=== PATIENT | male | born 1955 | race Caucasian/White ===

== ENCOUNTER → 2016-06-19 | Outpatient (REF) | payer MEDICARE, OTHER ==
[~2016-06-19] MED LIST: AFRI0.052; ASPI325T PO; B-COTAB10 PO; CEFT500T3 PO; COLA100C PO; COUM1TAB17 PO; FERR325T16 PO; FURO40TA2 PO; LEVO150T7 PO; LORA10TA2 PO; NICO14DI20 TD; PRED10TA PO; PROA1AER INH; PROT1TAB2 PO; SAPH1SUB12 SL; SAPH1SUB9 SL; SERT-138 PO; SYNT150T PO; TAMS0.4C2 PO; VITA2000 PO; [UNRECOGNIZED DRUG - CODE] PO
== END ==
LOC: M LAB REF 17:45
PROVIDERS: ATTEND Physician Assistant Medical
DX: J02.9 Acute pharyngitis, unspecified (principal)

== ENCOUNTER → 2016-10-10 | Outpatient (CLI) | payer MEDICARE, OTHER ==
[~2016-10-10] MED LIST changes: -COLA100C PO; +COLA100C3 PO
[2016-10-10 13:11] LABS: INR 1.9
== END ==
LOC: M WUC 09:15
PROVIDERS: ATTEND Dentist
DX: I26.99 Other pulmonary embolism without acute cor pulmonale (principal)

== ENCOUNTER → 2017-07-18 | Outpatient (CLI) | payer MEDICARE, OTHER ==
[2017-07-18 15:52] LABS: PROTHROMBIN TIME 13.3 SECONDS (12.4-14.5)
== END ==
LOC: M LAB 15:15
DX: D18.09 Hemangioma of other sites (principal); M51.34 Other intervertebral disc degeneration, thoracic region; M51.24 Other intervertebral disc displacement, thoracic region; M47.814 Spondylosis without myelopathy or radiculopathy, thoracic region; M79.1 Myalgia; Z79.01 Long term (current) use of anticoagulants
CPT/HCPCS: 85610

== ENCOUNTER → 2017-09-20 | Outpatient (REF) | payer MEDICARE, OTHER ==
[2017-09-20 19:13] LABS: INR 1.02; PROTHROMBIN TIME 13.5 SECONDS (12.4-14.5)
== END ==
LOC: M LAB REF 18:17
DX: D18.09 Hemangioma of other sites (principal); M51.34 Other intervertebral disc degeneration, thoracic region; M51.24 Other intervertebral disc displacement, thoracic region; M47.814 Spondylosis without myelopathy or radiculopathy, thoracic region; M79.1 Myalgia; Z79.01 Long term (current) use of anticoagulants
CPT/HCPCS: 85610

== ENCOUNTER 2017-10-02 06:19 | Emergency (ER) | payer MEDICARE, OTHER ==
[2017-10-02 07:17] LABS: BASO % 0.6 % (0.0-1.0); EOS # 0.2 10^3/uL (0.0-0.50); EOS % 2.9 % (0.0-3.0); HEMATOCRIT 42.9 % (42.0-52.0); HEMOGLOBIN 14.6 g/dl (13.5-17.5); IMMATURE GRANULOCYTE % 0.1 % (0-3.0); MEAN CORPUSCULAR HEMOGLOBIN 30.9 pg (27.0-33.0); MEAN CORPUSCULAR VOLUME 90.9 fl (80.0-96.0); MONO # 0.5 10^3/uL (0.0-0.8); MONO % 6.7 % (0.0-5.0); NEUTROPHILS # 4.2 10^3/uL (1.8-7.7); NEUTROPHILS % 60.7 % (36.0-66.0); PLATELET COUNT, AUTOMATED 146 10^3/uL (150-450); RED BLOOD COUNT 4.72 10^6/uL (4.30-6.10); RED CELL DISTRIBUTION WIDTH 13.7 % (11.5-14.5); WHITE BLOOD COUNT 6.9 10^3/uL (4.0-10.0)
[2017-10-02] MEDS: NS 1,000 ML IV (07:25)
[2017-10-02 07:28] LABS: INR 1.41; PROTHROMBIN TIME 17.6 SECONDS (12.4-14.5)
[2017-10-02 07:38] LABS: ANION GAP 6 MEQ/L (8-16); BLOOD UREA NITROGEN 12 MG/DL (7-18); CARBON DIOXIDE LEVEL 27 MEQ/L (21-32); CHLORIDE LEVEL 111 MEQ/L (98-107); CREATININE FOR GFR 0.81 MG/DL (0.70-1.30); GLOMERULAR FILTRATION RATE > 60.0 (>49); GLUCOSE, FASTING 103 MG/DL (70-100); POTASSIUM SERUM 3.8 MEQ/L (3.5-5.1); SODIUM LEVEL 144 MEQ/L (136-145)
[2017-10-02] MEDS ORDERED: ISOVUE-370 76% 100ML VIAL (Q9967) As Ordered (07:50)
== END 2017-10-02 09:07 | disposition home or self-care (01) ==
LOC: M ED 06:19
DX: R68.84 Jaw pain (principal); G47.30 Sleep apnea, unspecified; E03.9 Hypothyroidism, unspecified; M19.90 Unspecified osteoarthritis, unspecified site; F41.9 Anxiety disorder, unspecified; F33.9 Major depressive disorder, recurrent, unspecified; Z99.89 Dependence on other enabling machines and devices; Z86.711 Personal history of pulmonary embolism; Z79.899 Other long term (current) drug therapy; Z79.890 Hormone replacement therapy; Z79.01 Long term (current) use of anticoagulants; J30.89 Other allergic rhinitis; F17.210 Nicotine dependence, cigarettes, uncomplicated
CPT/HCPCS: Q9967

== ENCOUNTER 2018-03-30 13:17 | Emergency (ER) | payer MEDICARE, OTHER | END 2018-03-30 14:29 | disposition home or self-care (01) | LOC: M ED 13:17 | DX: K08.89 Other specified disorders of teeth and supporting structures (principal); G50.0 Trigeminal neuralgia; Z85.850 Personal history of malignant neoplasm of thyroid; E89.0 Postprocedural hypothyroidism; F41.9 Anxiety disorder, unspecified; F32.9 Major depressive disorder, single episode, unspecified; F17.200 Nicotine dependence, unspecified, uncomplicated; J30.89 Other allergic rhinitis; Z98.84 Bariatric surgery status; Z79.899 Other long term (current) drug therapy; Z79.01 Long term (current) use of anticoagulants | CPT/HCPCS: 99282 ==

== ENCOUNTER 2019-04-11 15:00 | Emergency (ER) | payer OTHER, MEDICARE ==
[~2019-04-11] VITALS: Ht 177.8 cm; Wt 132.0 kg
[~2019-04-11 15:00] MED LIST changes: +AMOX500C PO; +ASPI-1 PO; -ASPI325T PO; -COLA100C3 PO; +COLA100C5 PO; +DULO1CAP6 PO; +GABA-843 PO; +LORA-243 PO; -LORA10TA2 PO; +OXYC1SOL5 PO; +PERC7.5T11 PO; +PRED-351 PO; -PRED10TA PO; -PROA1AER INH; +PROAAER10 INH; +SIME80TA PO
[2019-04-11] MEDS ORDERED: ZALE10CA (15:14)
[2019-04-11] MEDS ORDERED: SIME40TA PO (15:14)
[2019-04-11] MEDS ORDERED: PANT40TA3 PO (15:14)
[2019-04-11] MEDS ORDERED: PRAZ1CAP (15:14)
[2019-04-11] MEDS ORDERED: LITH150C (15:14)
[2019-04-11 17:49] VITALS: BP 141/88
--- NOTE | 2019-04-11 18:04 | REPVR ---
PROCEDURE INFORMATION: Exam: US Duplex Left Lower Extremity Veins, Limited Exam date and time: 04/11/2019 5:41 PM Age: 63 years old Clinical history: Pain; Arm, lower; Left; Additional info: Edema pain TECHNIQUE: Imaging protocol: Real-time Duplex ultrasound of the Left Lower Extremity with 2-D lemus scale, color Doppler flow and spectral waveform analysis with image documentation. Limited exam focused on the left lower extremity veins. COMPARISON: US Duplex, Ext LOWER veins, bilat 09/27/2015 6:04 PM FINDINGS: Left deep veins: Unremarkable. The common femoral, femoral, proximal profunda femoral and popliteal veins are patent without thrombus. Normal Doppler waveforms. Normal compressibility and/or augmentation response. Left superficial veins: Unremarkable. Saphenofemoral junction is patent without thrombus. Soft tissues: Unremarkable. IMPRESSION: No DVT of the left lower extremity veins. Electronically signed by: Caleb Tejeda On 04/11/2019 18:04:08 PM
== END 2019-04-11 19:17 | disposition home or self-care (01) ==
LOC: M ED 15:00
DX: R60.0 Localized edema (principal); E07.9 Disorder of thyroid, unspecified; I25.10 Atherosclerotic heart disease of native coronary artery without angina pectoris; K21.9 Gastro-esophageal reflux disease without esophagitis; Z86.711 Personal history of pulmonary embolism; Z98.84 Bariatric surgery status; Z79.899 Other long term (current) drug therapy; Z79.890 Hormone replacement therapy; J30.89 Other allergic rhinitis; F17.210 Nicotine dependence, cigarettes, uncomplicated

== ENCOUNTER → 2019-04-24 | Outpatient (CLI) | payer MEDICARE, OTHER ==
[~2019-04-24] MED LIST changes: +LITH150C; +PANT40TA3 PO; +PRAZ1CAP; +SIME40TA PO; +ZALE10CA
--- NOTE | 2019-04-24 10:55 | REP ---
MRI LEFT KNEE WITHOUT CONTRAST: HISTORY: Primary osteoarthritis of the left knee. Question meniscal tear. The patient gives a history of injury most recently in March 2019. There is a comparison left knee radiographs from April 16, 2019. TECHNIQUE: Axial, coronal, and sagittal imaging planes utilized. T1, proton density, and T2-weighted scans were obtained with and without fat saturation in the usual fashion. There is some motion artifact. The patient had difficulty remaining motionless. MRI FINDINGS: There is an osteochondral defect consistent with a nondisplaced sub chondral fracture in the medial femoral condyle. There is a large amount of acute edema in the bone marrow of the medial femoral condyle. The defect measures 17 mm from medial to lateral x 5 mm in craniocaudal depth x 19 mm in anteroposterior extent. No defect can be seen in the overlying articular cartilage on T1 or T2-weighted scans. Cortical and medullary bone signal intensity are otherwise normal. There is extra-articular soft tissue edema noted anteromedially. There is a moderate sized joint effusion and there is a complex Lee's cyst in the posteromedial popliteal soft tissues. Medial and lateral patellar retinacular structures are intact. There is no evidence of patellar or quadriceps tendon disruption. Anterior and posterior cruciate ligaments have an intact appearance. There is no evidence of medial or lateral collateral ligament disruption. The lateral meniscus appears intact. However, there is a vertically oriented tear through the posterior horn and posterior body of the medial meniscus nondisplaced. IMPRESSION: 1. Findings consistent with osteochondral nondisplaced fracture with extensive surrounding edema in the medial femoral condyle. 2. Linear vertically oriented tear posterior body posterior horn medial meniscus. 3. Joint effusion and Lee's cyst. Electronically Signed by Ebenezer Sanders MD 04/24/2019 05:50 P
== END ==
LOC: M RAD 07:52
PROVIDERS: ATTEND Orthopaedic Surgery Sports Medicine
DX: M17.0 Bilateral primary osteoarthritis of knee (principal)

== ENCOUNTER → 2019-04-24 | Outpatient (CLI) | payer OTHER, MEDICARE ==
[~2019-04-24] MED LIST changes: +CLAR10TA7 PO; +DICL1GEL3 TOP; +ELIQ2.5T PO; +FLON1SPR; +OCUVTA PO; +PRAZ1CAP PO; +PRED1TABL PO; +SYNT100T PO; +TRAZ-189 PO; +VITA200038 PO; +ZALE10CA PO
--- NOTE | 2019-04-24 12:29 | REP ---
SOFT-TISSUE ULTRASOUND LEFT POSTERIOR CHEST WALL. HISTORY: Palpable lump left posterior mid back. Posterior thorax mass. SONOGRAPHIC FINDINGS: In the left posterior infrascapular region scanning of the mass demonstrates an oval-shaped hypoechoic well encapsulated area which appears to be in the superficial skeletal muscular layer. This measures 11.3 cm in greatest transverse dimension x 9.7 cm craniocaudal x 3.1 cm in greatest thickness. It is essentially isoechoic to subcutaneous fat and may be a soft tissue lipoma. It does not appear to extend between the ribs or deeper than the superficial skeletal muscle layer. IMPRESSION: 11.3 x 9.7 x 3.1 cm intramuscular oval-shaped soft tissue mass in the left posterior chest wall. This is isoechoic to the subcutaneous fat and may be a lipoma. Ultrasound is nonspecific. CT or MRI scanning would provide additional tissue characterization. Indeed, review this patient's prior electronic x-ray jacket demonstrates a 7.7 cm soft tissue lipoma at the interface between the subcutaneous fat and the trapezius muscle in the left posterior chest wall on CT study from February 28, 2016. Electronically Signed by Ebenezer Sanders MD 04/24/2019 05:50 P
== END ==
LOC: M RAD 07:57
PROVIDERS: ATTEND Family Medicine
DX: R22.2 Localized swelling, mass and lump, trunk (principal)

== ENCOUNTER 2019-05-03 00:24 | Inpatient (IN) | payer OTHER, MEDICARE ==
[~2019-05-03] VITALS: Ht 180.3 cm; Wt 109.1 kg
[~2019-05-03 00:24] MED LIST changes: -CLAR10TA7 PO; -DICL1GEL3 TOP; -ELIQ2.5T PO; -FLON1SPR; -OCUVTA PO; -PRAZ1CAP PO; -PRED1TABL PO; -SYNT100T PO; -TRAZ-189 PO; -VITA200038 PO; -ZALE10CA PO
[2019-05-03 00:53] LABS: BASO # 0.1 10^3/uL (0.0-0.2); BASO % 0.8 % (0.0-1.0); EOS # 0.2 10^3/uL (0.0-0.5); EOS % 3.2 % (0.0-3.0); HEMATOCRIT 47.1 % (42.0-52.0); HEMOGLOBIN 15.7 g/dl (13.5-17.5); LYMPH # 2.9 10^3/uL (1.5-5.0); LYMPH % 39.3 % (24.0-44.0); MEAN CORPUSCULAR HEMOGLOBIN 30.7 pg (27.0-33.0); MEAN CORPUSCULAR HGB CONC 33.3 g/dl (32.0-36.5); MONO # 0.5 10^3/uL (0.0-0.8); MONO % 6.3 % (0.0-5.0); NEUTROPHILS # 3.6 10^3/uL (1.5-8.5); NEUTROPHILS % 50.1 % (36.0-66.0); PLATELET COUNT, AUTOMATED 185 10^3/uL (150-450); RED BLOOD COUNT 5.12 10^6/uL (4.30-6.10); WHITE BLOOD COUNT 7.3 10^3/uL (4.0-10.0)
[2019-05-03 01:21] LABS: ACETAMINOPHEN LEVEL 5.7 UG/ML (10.0-30.0); ALBUMIN 4.1 GM/DL (3.2-5.2); ALT/SGPT 26 U/L (12-78); BILIRUBIN,DIRECT < 0.1 MG/DL (0.0-0.2); BILIRUBIN,TOTAL 0.3 MG/DL (0.2-1.0); BLOOD UREA NITROGEN 11 MG/DL (7-18); CALCIUM LEVEL 8.7 MG/DL (8.8-10.2); CARBON DIOXIDE LEVEL 24 MEQ/L (21-32); CHLORIDE LEVEL 114 MEQ/L (98-107); CPK CREATINE PHOSPHOKINASE 111 U/L (39-308); ETHYL ALCOHOL (ETHANOL) 0.119 % (0.000-0.010); GLOMERULAR FILTRATION RATE > 60.0 (>49); GLUCOSE, FASTING 93 MG/DL (70-100); POTASSIUM SERUM 3.7 MEQ/L (3.5-5.1); SALICYLATE LEVEL 3.4 MG/DL (5.0-30.0); SODIUM LEVEL 146 MEQ/L (136-145); TOTAL PROTEIN 7.1 GM/DL (6.4-8.2)
[2019-05-03 01:22] LABS: AMPHETAMINES LEVEL URINE NEGATIVE (NEGATIVE); BARBITURATES URINE NEGATIVE (NEGATIVE); BENZODIAZEPINES URINE NEGATIVE (NEGATIVE); CANNABINOIDS URINE NEGATIVE (NEGATIVE); COCAINE METABOLITE URINE NEGATIVE (NEGATIVE); METHADONE URINE NEGATIVE (NEGATIVE); OPIATES URINE NEGATIVE (NEGATIVE); PHENCYCLIDINE URINE NEGATIVE (NEGATIVE)
[2019-05-03] MEDS ORDERED: CHARCOAL ACTIVATED LIQUID 25 GM/120 ML BTL PO ONE (01:30)
[2019-05-03 02:20] LABS: FREE T4 0.93 NG/DL (0.76-1.46)
[2019-05-03] MEDS: LEVOTHYROXINE 100MCG TABLET (0.1MG) PO SCH (06:00)
[2019-05-03] MEDS: LEVOTHYROXINE 150MCG TABLET (0.15MG) PO SCH (06:00)
[2019-05-03] MEDS ORDERED: PRAZ1CAP PO (06:16)
[2019-05-03] MEDS ORDERED: PRED1TABL PO (06:16)
[2019-05-03] MEDS ORDERED: DICL1GEL3 TOP (06:16)
[2019-05-03] MEDS ORDERED: VITA200038 PO (06:16)
[2019-05-03] MEDS ORDERED: ELIQ2.5T PO (06:16)
[2019-05-03] MEDS ORDERED: FLON1SPR (06:16)
[2019-05-03] MEDS ORDERED: SYNT100T PO (06:16)
[2019-05-03] MEDS ORDERED: SIME80TA PO (06:16)
[2019-05-03] MEDS ORDERED: TRAZ-189 PO (06:16)
[2019-05-03] MEDS ORDERED: ZALE10CA PO (06:16)
[2019-05-03] MEDS ORDERED: OCUVTA PO (06:16)
[2019-05-03] MEDS ORDERED: PANT40TA3 PO (06:16)
[2019-05-03] MEDS ORDERED: CLAR10TA7 PO (06:16)
[2019-05-03] MEDS: LORATADINE 10 MG TAB PO SCH ×2 (09:00→19:15)
[2019-05-03] MEDS: FERROUS GLUCONATE 324 MG TAB PO SCH ×2 (09:00→20:11)
[2019-05-03] MEDS: APIXABAN 2.5 MG TAB (ELIQUIS) PO SCH ×2 (09:00→20:11)
[2019-05-03] MEDS: FOLIC ACID 1 MG TAB PO SCH ×2 (09:00→19:15)
[2019-05-03] MEDS: VITAMIN D 1,000 INTERNATIONAL UNITS TABLET PO SCH ×2 (09:00→19:16)
[2019-05-03] MEDS: FLUTICASONE PROP 0.05% NASAL SPRAY 16 GM (FLONASE) SCH (09:00)
[2019-05-03] MEDS: OCUVITE 1 TAB PO SCH ×2 (09:00→20:11)
[2019-05-03] MEDS: PANTOPRAZOLE 40MG TAB (PROTONIX) PO SCH ×2 (09:00→19:15)
[2019-05-03] MEDS: MULTIVITAMINS/MINERALS THERAP 1 TAB PO SCH ×2 (09:00→19:15)
[2019-05-03] MEDS: FUROSEMIDE 40 MG TAB PO SCH (09:00)
[2019-05-03] MEDS: DOCUSATE SODIUM 100 MG CAP PO SCH ×2 (09:00→20:11)
[2019-05-03] MEDS ORDERED: LORazepam 2 MG TAB PO PRN (10:30)
[2019-05-03] MEDS ORDERED: OLANZapine ORAL DISINTEGRATING TAB 5MG PO PRN (10:30)
[2019-05-03] MEDS ORDERED: MAALOX 30 ML SUSP *UDC PO PRN (10:30)
[2019-05-03] MEDS ORDERED: SIMETHICONE 80 MG CHEW TAB PO PRN (10:30)
[2019-05-03] MEDS ORDERED: IBUPROFEN 400 MG TAB PO PRN (10:30)
[2019-05-03] MEDS: THIAMINE 100 MG TAB PO SCH ×2 (11:00→20:11)
--- NOTE | 2019-05-03 19:05 | HPEPDOC ---
General Date of Admission May 03, 2019 at 10:28 Date of Service: May 03, 2019 Chief Complaint The patient is a 63-year-old male admitted with a reason for visit of Unspecified Depression. Source: Patient History of Present Illness 63year old male with PMH of morbid obesity s/p gastric bypass surgery, PTSD/ Major Depression/ Suicidal attempts int the past , hypertension, PATTY on CPAP, COPD/ Emphysema, Moderate pulmonary hypertension, history of Pulmonary embolism, GERD, thyroid cancer s/p surgery now with hypothyroidism, left knee pain Has NONDISPLACED FRACTURE OF THE MEDIAL FEMORAL CONDYLE WITH SURROUNDING EDEMA, left medial meniscus tear, joint efussion, bakers cyst seen in MRi on 04/24/19. seen by ortho recommended nonoperative approach with pain management was admitted to the [facility] for depression with suicidal attempt with ingestion of pills along with few beers then he called the [place] suicide hotline and EMS brought him to the ED. Patient does not want to talk much, low mood, poor appetite. Most of the data is gathered form EMR and RN report. Nurse says he has not eaten all day , has not taken his meds refused a physical exam. He was laying down in bed in no distress. When a asked him if his knee hurts he siad it was good, when i asked how was his breathing he said he did not have any problem. On questioning further he did acknowledge that he used CPAP at night but that they will not give it to him here. THe nurse present with me during the interview did clarify that he will be getting his CPAP at night. When i asked to do a physical exam he refused said he is fine he does not need one. Home Medications Scheduled Apixaban (Eliquis) 2.5 Mg Tablet, 2.5 MG PO BID, (Reported) Cholecalciferol (Vitamin D3) (Vitamin D3) 2,000 Unit Tablet, 2,000 UNIT PO DAILY, (Reported) Docusate Sodium (Colace) 100 Mg Cap, 200 MG PO BID, (Reported) Duloxetine Hcl (Duloxetine HCl) 60 Mg Capsule.dr, 120 MG PO DAILY for DEPRE SSION, (Reported) Ferrous Gluconate (Ferrous Gluconate) 324 Mg Tab, 324 MG PO BID, (Reported) Fluticasone Propionate (Flonase Allergy Relief) 9.9 Ml [place].susp, 2 SPRAYS NA DAILY, (Reported) Furosemide (Furosemide) 40 Mg Tab, 40 MG PO DAILY, (Reported) Levothyroxine Sodium (Synthroid) 150 Mcg Tab, 150 MCG PO DAILY, (Reported) TAKES WITH 100MCG FOR 250MCG TOTAL Levothyroxine Sodium (Synthroid) 100 Mcg Tablet, 100 MCG PO DAILY, (Reported) TAKES WITH 150MCG FOR 250MCG TOTAL [place] Carbonate (B[place] Carbonate) 300 Mg Capsule, 300 MG PO BID for mood Loratadine (Claritin) 10 Mg Tablet, 10 MG PO DAILY, (Reported) Multivitamins (I-Shabbir Tablet) 1 Each Tablet, 1 TAB PO BID, (Reported) Pantoprazole Sodium (Pantoprazole Sodium) 40 Mg Tablet.dr, 40 MG PO DAILY, (Reported) Prazosin Hcl (Prazosin HCl) 1 Mg Capsule, 1 MG PO QHS, (Reported) Prednisone (Prednisone) 1 Mg Tablet, 1 MG PO QHS, (Reported) Salsalate (Salsalate) 750 Mg Tablet, 750 MG PO BID for PAIN, (Reported) Vitamin B Complex/Folic Acid (B-Complex Tablet) 1 Tab Tab, 1 TAB PO DAILY, (Reported) Zaleplon (Zaleplon) 10 Mg Capsule, 10 MG PO QHS, (Reported) Scheduled PRN Diclofenac Sodium (Diclofenac Sodium) 1% 100GM Gel..gram., 2 GM TOP BID PRN for PAIN, (Reported) Apply to area of pain Oxycodone HCl (Oxycodone Hydrochloride) 5 Mg Capsule, 5 MG PO TIDP PRN for pain, (Reported) Simethicone (Simethicone) 80 Mg Tab.chew, 80 MG PO QID PRN for GAS PAIN, (Reported) Trazodone HCl (Trazodone HCl) 100 Mg Tablet, 200 MG PO QHS PRN for INSOMNIA, (Reported) Allergies Coded Allergies: ENVIROMENTAL (Unverified Allergy, Unknown, 01/26/15) Past Medical History Medical History PTSD/DEPRESSION/SUICIDAL IDEATION - DR LARA EMPHYSEMA PE 09/20 THYROID CA S/P THYROIDECTOMY S/P HYPOTHYROIDISM GERD MOD PLUM HTN REYEZ'S ESOPHAGUS/GERD HTN PATTY ON CPAP COPD NICOTINE DEP H/O MORBID OBESITY s/p gastric bypass in 2008 HEARING LOSS IRON DEF ANEMIA VIT D DEF OSTEOPENIA Surgical History SINUS RECONSTRUCTION 1974 RIGHT EAR SURGERY 1974 TONSILLECTOMY A CHILD HIATAL HERNIA REPAIR TWISTED BOWEL REPAIR GASTRIC BYPASS 2009 THYROIDECTOMY 2007 PENILE IMPLANT 2012 Family History MOTHER: , UNSPECIFIED HEART DISEASE 2 BROTHER(S) , 1 SISTER(S) . 1 SON(S) , 1 DAUGHTER(S) - HEALTHY. FATHER: LUNG CA, BROTHERS: , ONE FROM BRAIN ANEURYSM SISTER: FROM DRUGS. A-FIB/CHADSVASC A-FIB History Current/History of A-Fib/PAF?: No Review of Systems Other systems To every question he answered " I am fine" Physical Examination Other physical findings Patient refused a physical exam. he was seen laying down in his bed in no acute distress. Vital Signs Vital Signs Date Time Temp Pulse Resp B/P (MAP) Pulse Ox O2 Delivery O2 Flow Rate FiO2 05/03/19 10:44 98.9 69 20 130/85 (100) 95 Room Air 05/03/19 02:45 2.0 Laboratory Data Labs 24H Laboratory Tests 2 05/03/19 00:43: Anion Gap 8, Glomerular Filtration Rate > 60.0, Calcium Level 8.7L, Total Bilirubin 0.3, Direct Bilirubin < 0.1, Aspartate Amino Transf (AST/SGOT) 22, Alanine Aminotransferase (ALT/SGPT) 26, Alkaline Phosphatase 94, Total Creatine Kinase 111, Total Protein 7.1, Albumin 4.1, Albumin/Globulin Ratio 1.37, Thyroid Stimulating Hormone (TSH) 10.500H, Free Thyroxine 0.93, Salicylates Level 3.4L, Acetaminophen Level 5.7L, Ethyl Alcohol Level 0.119H 05/03/19 00:44: Immature Granulocyte % (Auto) 0.3, Neutrophils (%) (Auto) 50.1, Lymphocytes (%) (Auto) 39.3, Monocytes (%) (Auto) 6.3H, Eosinophils (%) (Auto) 3.2H, Basophils (%) (Auto) 0.8, Neutrophils # (Auto) 3.6, Lymphocytes # (Auto) 2.9, Monocytes # (Auto) 0.5, Eosinophils # (Auto) 0.2, Basophils # (Auto) 0.1, Nucleated Red Blood Cells % (auto) 0.0, Urine Opiates Screen NEGATIVE, Urine Methadone Screen NEGATIVE, Urine Barbiturates Screen NEGATIVE, Urine Phencyclidine Screen NEGATIVE, Urine Amphetamines Screen NEGATIVE, Urine Benzodiazepines Screen NEGATIVE, Urine Cocaine Metabolite Screen NEGATIVE, Urine Cannabinoids Screen NEGATIVE 05/03/19 00:55: Bedside Glucose (Misc Panel) 93 05/03/19 04:35: Acetaminophen Level 3.1L CBC/BMP Laboratory Tests 05/03/19 00:43 05/03/19 00:44 Assessment/Plan 63year old male with PMH of morbid obesity s/p gastric bypass surgery, PTSD/ Major Depression/ Suicidal attempts int the past , hypertension, PATTY on CPAP, COPD/ Emphysema, Moderate pulmonary hypertension, history of Pulmonary embolism, GERD, thyroid cancer s/p surgery now with hypothyroidism, iron def anemia, left knee pain Has NONDISPLACED FRACTURE OF THE MEDIAL FEMORAL CONDYLE WITH SURROUNDING EDEMA, left medial meniscus tear, joint effusion, bakers cyst seen in MRi on 04/24/19. seen by ortho recommended nonoperative approach with pain management was admitted to the [facility] for depression with suicidal attempt with ingestion of pills Depression with suicidal attempt as per psychiatry PATTY continue home CPAP at night. History of PE continue eliquis Hypetension BP low normal to low here, patient not eating. will hold lasix for 2 days. Hypothyroidism continue synthroid Iron def anemia continue supplements Left knee meniscal tear and undisplaced fracture of femoral condyle pain control with tylenol and ibuprofen. Gastric bypass surgery status continue with vitamin and mineral supplements GERD continue pantoprazole. Plan / VTE VTE Prophylaxis Ordered?: No (freely ambulatory) FAYE CALLE MD May 03, 2019 16:45
[2019-05-03] MEDS ORDERED: LEVOTHYROXINE 100MCG TABLET (0.1MG) PO ONE (19:30)
[2019-05-03] MEDS ORDERED: LEVOTHYROXINE 150MCG TABLET (0.15MG) PO ONE (19:30)
[2019-05-03] MEDS ORDERED: NICOTINE 21MG/24HR 1 EA TRANSDERMAL TD ONE (20:00)
[2019-05-03] MEDS: traZODone 100 MG TAB PO PRN (20:11)
[2019-05-03] MEDS: PRAZOSIN 1 MG CAP PO SCH (20:12)
[2019-05-03] MEDS: predniSONE 1 MG TAB PO SCH (20:12)
[2019-05-03 20:38] VITALS: BP 126/84
[2019-05-03] MEDS ORDERED: FLUTICASONE PROP 0.05% NASAL SPRAY 16 GM (FLONASE) NARES ONE (21:15)
[2019-05-04] MEDS ORDERED: UNRESOLVED CLARIFICATION ENTRY XX SCH (00:01)
[2019-05-04] MEDS: LEVOTHYROXINE 100MCG TABLET (0.1MG) PO SCH (06:08)
[2019-05-04] MEDS: LEVOTHYROXINE 150MCG TABLET (0.15MG) PO SCH (06:08)
[2019-05-04 06:19] VITALS: BP 142/90
[2019-05-04] MEDS: FLUTICASONE PROP 0.05% NASAL SPRAY 16 GM (FLONASE) SCH (09:00)
[2019-05-04 09:22] VITALS: BP 142/90
[2019-05-04] MEDS: THIAMINE 100 MG TAB PO SCH ×2 (09:44→20:41)
[2019-05-04] MEDS: MULTIVITAMINS/MINERALS THERAP 1 TAB PO SCH (09:45)
[2019-05-04] MEDS: LORATADINE 10 MG TAB PO SCH (09:45)
[2019-05-04] MEDS: FOLIC ACID 1 MG TAB PO SCH (09:45)
[2019-05-04] MEDS: DOCUSATE SODIUM 100 MG CAP PO SCH ×2 (09:45→20:40)
[2019-05-04] MEDS: APIXABAN 2.5 MG TAB (ELIQUIS) PO SCH ×2 (09:45→20:40)
[2019-05-04] MEDS: OCUVITE 1 TAB PO SCH ×2 (09:45→20:40)
[2019-05-04] MEDS ORDERED: NICOTINE 21MG/24HR 1 EA TRANSDERMAL TD SCH (09:45)
[2019-05-04] MEDS: PANTOPRAZOLE 40MG TAB (PROTONIX) PO SCH (09:45)
[2019-05-04] MEDS: FERROUS GLUCONATE 324 MG TAB PO SCH ×2 (09:45→20:40)
[2019-05-04] MEDS: VITAMIN D 1,000 INTERNATIONAL UNITS TABLET PO SCH (09:45)
[2019-05-04] MEDS: NICOTINE 21MG/24HR 1 EA TRANSDERMAL TD SCH (09:46)
[2019-05-04] MEDS: LITHIUM CARBONATE 300 MG CAP PO SCH ×2 (09:56→20:40)
--- NOTE | 2019-05-04 11:52 | MHHPE ---
DATE OF ADMISSION: 05/03/2019 CURRENT MEDICATION: - lithium carbonate 150 mg twice a day ? CHIEF COMPLAINT: Overdose of pills and beer. HISTORY OF PRESENT ILLNESS: This 63-year-old white male, for 46 years, , patient has been stockpiling pills and he took an overdose one week ago, which was not treated. He took another prior to admission, consuming Percocet and beer. The patient feels helpless and hopeless. He struggles with chronic suicidal thoughts for 30 plus years. The patient has chronic sleep difficulty, partly from his posttraumatic stress disorder (PTSD) and partly from his sleep apnea. The patient has a history of nightmares with his posttraumatic stress disorder (PTSD). His energy level is low. His concentration is fine. He does have a history of lazara. He does have a history of manic episodes where he would spend too much money and get into financial difficulty. He does report racing thoughts, he cannot turn his mind off. The patient takes prazosin for his PTSD with some benefit. The patient also admits to abusing caffeine, he has done this for decades. He drinks at least six cups of coffee per day. He does not consume faisal or energy drinks. The patient does not report any recent precipitating stressors. The patient does binge drink alcohol on weekends, according to the . He just drinks beer and not hard liquor. He admits to getting blackouts when he consumes whiskey so he avoids the whiskey now. The patient has a long psychiatric history treated at the [facility]. He has been on multiple medications over the decades, which he cannot recall. He is currently using Dr. French for the past 4 months here in [place]. The patient states that he is on lithium 150 mg twice a day from Dr. French. He claims to be tolerating it well. He has been on lithium in the past as well through the [facility] without any adverse side effects. He claims to be on other psychotropics from Dr. French but cannot recall the details. He will have his bring in the medication. PAST PSYCHIATRIC HISTORY: Please see above. He has a long psychiatric history. He was hospitalized for 6 months in [place] back in 1989. He has been hospitalized twice at the [facility]. He was hospitalized here at [facility] inpatient mental health unit many years ago. He reports having a history of panic and anxiety disorder in the past with severe agoraphobia. He will get housebound. He would get diarrhea if he left the house. This eventually resolved. No history of obsessive compulsive disorder (OCD). He does report some social phobic symptoms. He is not a good historian. MEDICAL HISTORY: Morbid obesity, status post gastric bypass, hypertension, sleep apnea, chronic obstructive pulmonary disease (COPD), gastroesophageal reflux disease (GERD), status post thyroid cancer, fracture of femur. ALLERGIES: The patient denies. LEGAL HISTORY: None noted. CHEMICAL DEPENDENCY: The patient binge drinks alcohol on weekends, according to . SOCIAL HISTORY: THe patient was born and raised in [place]. He joined the [employer] out of high school and was in [place]. He got out of the [employer] after 17 years. His is a nurse and they moved to [place], [place] back in 1989. The patient has not worked since. The patient has a 41-year-old son and a 44-year-old daughter. He has a number of grandchildren. FAMILY PSYCHIATRIC HISTORY: The patient states that his son has been diagnosed with paranoid schizophrenia. He claims his daughter is a hypochondriac. MENTAL STATUS EXAMINATION: The patient is alert, oriented, cooperative. Yesterday he was very irritable, according to staff but is cooperative here today. The patient reports primarily depressive symptoms, but does report racing thoughts, especially at night. The patient reports chronic suicidal thoughts. No signs of psychosis. He is not hearing voices. No paranoia or thought disorder. Grooming and hygiene are fair. The patient walks with a cane. Insight and judgment are fair. No signs of organicity. Cognitive functions appear intact. ASSESSMENT: The patient has a long psychiatric history. He is not a good historian, so we will need access records from the psychiatrist in the [facility], as well as from his . Length of stay is 5 to 7 days. DIAGNOSES: 1. Bipolar disorder, depressed versus bipolar disorder, mixed. 2. Posttraumatic stress disorder (PTSD). 3. Panic/anxiety disorder with agoraphobia. 4. Alcohol use disorder. 5. Nicotine use disorder. PLAN: Confirm 39. Obtain old records. Restart lithium and obtain lithium level. Start nicotine replacement patch.
[2019-05-04] MEDS: CEPACOL LOZENGE PO PRN ×3 (12:01→20:40)
[2019-05-04 16:08] VITALS: BP 140/81
[2019-05-04 19:15] VITALS: BP 141/88
[2019-05-04] MEDS: PRAZOSIN 1 MG CAP PO SCH (20:40)
[2019-05-04] MEDS: predniSONE 1 MG TAB PO SCH (20:41)
[2019-05-04] MEDS ORDERED: FLUTICASONE PROP 0.05% NASAL SPRAY 16 GM (FLONASE) SCH (21:00)
[2019-05-05] MEDS: LEVOTHYROXINE 150MCG TABLET (0.15MG) PO SCH (05:41)
[2019-05-05] MEDS: LEVOTHYROXINE 100MCG TABLET (0.1MG) PO SCH (05:42)
[2019-05-05] MEDS: THIAMINE 100 MG TAB PO SCH ×2 (08:49→20:08)
[2019-05-05] MEDS: LITHIUM CARBONATE 300 MG CAP PO SCH ×2 (08:49→20:08)
[2019-05-05] MEDS: DOCUSATE SODIUM 100 MG CAP PO SCH ×2 (08:49→20:08)
[2019-05-05] MEDS: VITAMIN D 1,000 INTERNATIONAL UNITS TABLET PO SCH (08:49)
[2019-05-05] MEDS: LORATADINE 10 MG TAB PO SCH (08:49)
[2019-05-05] MEDS: APIXABAN 2.5 MG TAB (ELIQUIS) PO SCH ×2 (08:49→20:05)
[2019-05-05] MEDS: OCUVITE 1 TAB PO SCH ×2 (08:49→20:06)
[2019-05-05] MEDS: FOLIC ACID 1 MG TAB PO SCH (08:49)
[2019-05-05] MEDS: MULTIVITAMINS/MINERALS THERAP 1 TAB PO SCH (08:50)
[2019-05-05] MEDS: NICOTINE 21MG/24HR 1 EA TRANSDERMAL TD SCH (08:50)
[2019-05-05] MEDS: FERROUS GLUCONATE 324 MG TAB PO SCH ×2 (08:50→20:05)
[2019-05-05] MEDS: PANTOPRAZOLE 40MG TAB (PROTONIX) PO SCH (08:50)
[2019-05-05] MEDS: FUROSEMIDE 40 MG TAB PO SCH (09:40)
--- NOTE | 2019-05-05 11:11 | MHIPN ---
DATE: 05/05/2019 Temperature 97.9, pulse 76, respirations 20, blood pressure 140/81. CURRENT MEDICATION: - lithium carbonate 300 mg twice a day - prazosin 1 g at bedtime - trazodone 200 mg at bedtime HISTORY OF PRESENT ILLNESS: Reports his never brought in the bottles of medication yesterday. Unfortunately, patient has been isolating on the unit. He is not attending groups. He is acting in oppositional defiant fashion toward staff. His appetite is good, but he is not sleeping well at night. He is afraid he might roll off the bed, so he was sleeping on the floor. He only slept for two or three hours last night. Otherwise, he is pacing a lot. He is not a good historian regarding his past psychiatric care or his medications. His will bring in the bottles later today, hopefully. He is tolerating the lithium well. On lasix so dose will be kept low. MENTAL STATUS EXAMINATION: Patient is alert, oriented and somewhat irritable. Patient reports mild depression. He denies current suicidal thoughts, but admits suicidality comes and goes and is easily prompted or provoked. He denies hearing voices. No current manic symptoms. Insight and judgment are fair. Cognitive functions appear intact. DIAGNOSES: 1. Bipolar disorder, depressed. 2. Posttraumatic stress disorder (PTSD). 3. Panic anxiety disorder. 4. Alcohol use disorder. 5. Nicotine use disorder. PLAN; Obtain lithium level tomorrow morning. Patient's to bring in his psychotropic medication this afternoon, which will be reviewed by his nurse and myself. Encourage involvement in hospital milieu. ALEXANDER
[2019-05-05] MEDS ORDERED: DULO1CAP6 PO (14:18)
[2019-05-05] MEDS ORDERED: SALS750T10 PO (14:23)
[2019-05-05] MEDS ORDERED: OXYC1CAP PO (14:23)
--- NOTE | 2019-05-05 14:46 | ECGEPIP ---
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
[2019-05-05] MEDS: DULoxetine 30 MG CAP (CYMBALTA) PO SCH (14:53)
[2019-05-05] MEDS ORDERED: SODIUM CHLORIDE NASAL 0.65% SPRAY BTL (OCEAN) PRN (15:45)
--- NOTE | 2019-05-05 16:08 | IPNPDOC ---
Subjective Date Seen The patient was seen on 05/05/19. Subjective Chief Complaint/HPI Patient choked on a piece of hamburger last night and had a severe coughing fit and was ultimately able to bring it up. He says that there must have been a piece of meat lodged between his teeth which got dislodged when he was sleeping and as he is a mouth breather it went into his airway. However now he is seeing lots of black dots and lines floating around in his visual field. He also complains of his sinuses bothering him a lot at night . It gets blocked up and then he cannot breathe he feels his throat also closing up when his nose gets blocked. Denies any further ongoing coughing or any SOB. Objective Physical Examination General Exam: Positive: Alert, Cooperative, No Acute Distress Eye Exam: Positive: PERRLA, Conjunctiva & lids normal, EOMI; Negative: Sclera icteric ENT Exam: Positive: Mucous membr. moist/pink, Nares Patent Chest Exam: Positive: Clear to auscultation, Normal air movement Heart Exam: Positive: Regular Rhythm, Normal S1, Normal S2 Extremity Exam: Positive: Edema (trace edema); Negative: Clubbing, Cyanosis Neuro Exam: Positive: Normal Gait, Normal Speech Psych Exam: Positive: Memory Intact, Oriented x 3 Assessment /Plan Assessment 63year old male with PMH of morbid obesity s/p gastric bypass surgery, PTSD/ Major Depression/ Suicidal attempts int the past , hypertension, PATTY on CPAP, COPD/ Emphysema, Moderate pulmonary hypertension, history of Pulmonary embolism, GERD, thyroid cancer s/p surgery now with hypothyroidism, iron def anemia, left knee pain Has NONDISPLACED FRACTURE OF THE MEDIAL FEMORAL CONDYLE WITH SURROUNDING EDEMA, left medial meniscus tear, joint effusion, bakers cyst seen in MRi on 04/24/19. seen by ortho recommended nonoperative approach with pain management was admitted to the [facility] for depression with suicidal attempt with ingestion of pills. Early this am he aspirated on a piece of meat which he was able to cough out. But after that he started seeing floaters in his visual field. His vision is not good as he says he has cataracts. He also complains of the sinuses bothering him at night. Aspiration on a piece of meat seems to have resolved. If patient starts coughing again or complains of SOB will get a CXR. Floaters in the visual field if continues to be a problem will need a ophthal consult or referral Sinus congestion will change the nasal spray to Afrin will also have saline nasal drops available prn. Depression with suicidal attempt as per psychiatry patient is on lithium, prazocin and trazodone PATTY continue home CPAP at night. History of PE continue eliquis Hypertension controlled. continue lasix. Hypothyroidism continue synthroid Iron def anemia continue supplements Left knee meniscal tear and undisplaced fracture of femoral condyle pain control with tylenol and ibuprofen. Gastric bypass surgery status continue with vitamin and mineral supplements GERD continue pantoprazole. Plan/VTE VTE Prophylaxis Ordered?: No (Freely ambulatory) VS, I&O, 24H, Fishbone Vital Signs/I&O Vital Signs Date Time Temp Pulse Resp B/P (MAP) Pulse Ox O2 Delivery O2 Flow Rate FiO2 05/04/19 20:40 131/71 05/04/19 19:15 85 05/04/19 16:08 97.9 20 05/03/19 10:44 95 Room Air 05/03/19 02:45 2.0 FAYE CALLE MD May 05, 2019 16:08
[2019-05-05 16:29] VITALS: BP 146/90
[2019-05-05] MEDS: OXYMETAZOLINE NASAL SPRAY (AFRIN) SCH (20:05)
[2019-05-05] MEDS: predniSONE 1 MG TAB PO SCH (20:06)
[2019-05-05 20:08] VITALS: BP 146/90
[2019-05-05] MEDS: traZODone 100 MG TAB PO PRN (20:08)
[2019-05-05] MEDS: PRAZOSIN 1 MG CAP PO SCH (20:08)
[2019-05-05] MEDS ORDERED: ZALEPLON 10 MG PO SCH (21:00)
[2019-05-06 05:50] VITALS: BP 128/73
[2019-05-06] MEDS: LEVOTHYROXINE 100MCG TABLET (0.1MG) PO SCH (06:16)
[2019-05-06] MEDS: LEVOTHYROXINE 150MCG TABLET (0.15MG) PO SCH (06:17)
[2019-05-06] MEDS: OXYMETAZOLINE NASAL SPRAY (AFRIN) SCH ×2 (09:00→09:12)
[2019-05-06] MEDS: VITAMIN D 1,000 INTERNATIONAL UNITS TABLET PO SCH (09:11)
[2019-05-06] MEDS: LORATADINE 10 MG TAB PO SCH (09:11)
[2019-05-06] MEDS: DULoxetine 30 MG CAP (CYMBALTA) PO SCH (09:11)
[2019-05-06] MEDS: DOCUSATE SODIUM 100 MG CAP PO SCH (09:11)
[2019-05-06] MEDS: MULTIVITAMINS/MINERALS THERAP 1 TAB PO SCH (09:11)
[2019-05-06] MEDS: FOLIC ACID 1 MG TAB PO SCH (09:11)
[2019-05-06] MEDS: APIXABAN 2.5 MG TAB (ELIQUIS) PO SCH (09:12)
[2019-05-06] MEDS: FERROUS GLUCONATE 324 MG TAB PO SCH (09:12)
[2019-05-06] MEDS: FUROSEMIDE 40 MG TAB PO SCH (09:12)
[2019-05-06] MEDS: LITHIUM CARBONATE 300 MG CAP PO SCH (09:12)
[2019-05-06] MEDS: PANTOPRAZOLE 40MG TAB (PROTONIX) PO SCH (09:12)
[2019-05-06] MEDS: OCUVITE 1 TAB PO SCH (09:12)
[2019-05-06] MEDS: NICOTINE 21MG/24HR 1 EA TRANSDERMAL TD SCH (09:13)
[2019-05-06 09:39] LABS: BASO % 0.4 % (0.0-1.0); EOS # 0.2 10^3/uL (0.0-0.5); EOS % 4.1 % (0.0-3.0); HEMATOCRIT 46.6 % (42.0-52.0); LYMPH # 1.6 10^3/uL (1.5-5.0); LYMPH % 27.4 % (24.0-44.0); MEAN CORPUSCULAR HEMOGLOBIN 30.2 pg (27.0-33.0); MEAN CORPUSCULAR HGB CONC 32.2 g/dl (32.0-36.5); MONO # 0.2 10^3/uL (0.0-0.8); MONO % 4.2 % (0.0-5.0); NEUTROPHILS # 3.6 10^3/uL (1.5-8.5); NEUTROPHILS % 63.5 % (36.0-66.0); PLATELET COUNT, AUTOMATED 148 10^3/uL (150-450); RED BLOOD COUNT 4.96 10^6/uL (4.30-6.10); WHITE BLOOD COUNT 5.7 10^3/uL (4.0-10.0)
[2019-05-06 10:05] LABS: BLOOD UREA NITROGEN 16 MG/DL (7-18); CALCIUM LEVEL 8.6 MG/DL (8.8-10.2); CARBON DIOXIDE LEVEL 27 MEQ/L (21-32); CHLORIDE LEVEL 110 MEQ/L (98-107); CREATININE FOR GFR 0.89 MG/DL (0.70-1.30); GLOMERULAR FILTRATION RATE > 60.0 (>49); GLUCOSE, FASTING 154 MG/DL (70-100); LITHIUM LEVEL 0.24 MEQ/L (0.60-1.20); POTASSIUM SERUM 3.8 MEQ/L (3.5-5.1); SODIUM LEVEL 144 MEQ/L (136-145)
--- NOTE | 2019-05-06 10:32 | MHDSPDOC ---
[facility] Discharge Summary Discharge Summary DATE OF ADMISSION: May 03, 2019 at 10:28 DATE OF DISCHARGE: 05/06/19 Discharge Jaime Lacy MRN: [id number] Date of : N/A Date of Service: 05/06/2019 Diagnoses Unspecified depressive disorder. PTSD, chronic. Alcohol use disorder, moderate. Nicotine use disorder, severe. History of Present Illness The patient a 63-year-old man who has been to his for the last 46 years presents after reportedly becoming intoxicated, reporting suicidal thoughts with a plan to overdose. He had attempted to overdose twice by taking several tablets of his medication more than he is supposed to, however, he had been notably drinking a significant amount of alcohol prior to his admission and on the day of his admission presented with a BAL of 1.119. His notes that he has changed his alcohol drinking behavior, notably causing him to feel more down and have more varying moods. Initially when he had been admitted to the inpatient mental health unit, he had been fairly upset about this and cantankerous. He has a history of 30 years of chronic SI. Consultants Involved Hospitalist/PCP screening Treatment and Progress On The Unit The patient was admitted to the inpatient unit and restarted on his home medic ations. Initially, he had been upset and irritated, however, after being restarted on his home medications, he had been increased on his lithium to 300 mg BID from 150 respectively. His lithium level was relatively low at 0.24, however, he has a history of having multiple different medications and is on duloxetine among many others. His reports that she has previously managed his medications and that he does have a history of minimizing, however, he had made significant progress on the unit after several days of observation, improving with more euthymic affect, becoming cooperative and pleasant with the staff. On the day of discharge, he denied any suicidal or homicidal ideation for at least 24 hours prior to discharge. He was able to participate well in his discharge planning, discussed the situations that had led him and demonstrated improved insight. He had a normal mental status exam and had not been agitated additionally in the last 24 hours and behavioral control. Discussion with his revealed that she was amenable to working on multiple different avenues of protecting him from dangerous means, having her control his medications and coaching her to ensure that he has no access to weapons. The patient became more future orientated and was discussing how excited he was to be going on a [place] with his , further demonstrating improvement in his depress ion likely secondary to both the reduction of his alcohol use and sobriety, further suggesting a possible substance-induced component to his depression at this time. He declined further voluntary admission on the day of discharge and was discharged in good marta. Discharge Assessment 63-year-old man with a history of reported depression, presents intoxicated with some suicidal gestures. He after being restarted on his home medications and allowed to sober up appears to do well with the depressive symptoms resolving, further suggesting a potential for substance-induced versus adjustment as the primary cause. His history of bipolar disorder is not clear, but he is on a number of different medications. His engages in fairly advanced safety planning, eliminating the majority of means by which he can injure himself as well as restricting his alcohol use. Mental Status Examination General: Well dressed with good hygiene Speech: Spontaneous and fluid Thought processes: Linear and logical MSK: Smooth and coordinated gait, no signs of tremors or involuntary orofacial movements Thought content: Future orientated Abstract reasoning, and computation: Intact Description of associations: Intact Description of abnormal or psychotic thoughts: Denies any suicidal or homicidal ideation. Denies any auditory or visual hallucinations. Does not appear to be responding to internal stimuli. Does not appear to be endorsing any bizarre or paranoid ideation. Judgment: fair Insight: fair Orientation: Alert and orientated 3 Cognition: Grossly normal Recent and remote memory: Intact Attention span and concentration: Intact Fund of knowledge: Adequate Mood: "okay" Affect: Euthymic with a full range Follow Up The social work team worked during the predischarge meeting in order to evaluate for further issues of lethality address them fully before discharge. They worked on safety planning with the patient's family members in order to ensure that the patient will have a safe and effective discharge. Time Spent The amount of time spent in the coordination of care for this patient was approximately 90 minutes. Monday Vital Signs/I&Os Vital Signs Date Time Temp Pulse Resp B/P (MAP) Pulse Ox O2 Delivery O2 Flow Rate FiO2 05/06/19 05:50 97.9 59 16 128/73 (91) 05/03/19 10:44 95 Room Air 05/03/19 02:45 2.0 Laboratory Data Labs 24H Laboratory Tests 2 05/06/19 09:20: Immature Granulocyte % (Auto) 0.4, Neutrophils (%) (Auto) 63.5, Lymphocytes (%) (Auto) 27.4, Monocytes (%) (Auto) 4.2, Eosinophils (%) (Auto) 4.1H, Basophils (%) (Auto) 0.4, Neutrophils # (Auto) 3.6, Lymphocytes # (Auto) 1.6, Monocytes # (Auto) 0.2, Eosinophils # (Auto) 0.2, Basophils # (Auto) 0.0, Nucleated Red Blood Cells % (auto) 0.0, Anion Gap 7L, Glomerular Filtration Rate > 60.0, Calcium Level 8.6L, Icard Level 0.24L CBC/BMP Laboratory Tests 05/06/19 09:20 Medications Scheduled Apixaban (Eliquis) 2.5 Mg Tablet, 2.5 MG PO BID, (Reported) Cholecalciferol (Vitamin D3) (Vitamin D3) 2,000 Unit Tablet, 2,000 UNIT PO DAILY, (Reported) Docusate Sodium (Colace) 100 Mg Cap, 200 MG PO BID, (Reported) Duloxetine Hcl (Duloxetine HCl) 60 Mg Capsule.dr, 120 MG PO DAILY for DEPRESSION, (Reported) Ferrous Gluconate (Ferrous Gluconate) 324 Mg Tab, 324 MG PO BID, (Reported) Fluticasone Propionate (Flonase Allergy Relief) 9.9 Ml Wilder.susp, 2 SPRAYS NA DAILY, (Reported) Furosemide (Furosemide) 40 Mg Tab, 40 MG PO DAILY, (Reported) Levothyroxine Sodium (Synthroid) 150 Mcg Tab, 150 MCG PO DAILY, (Reported) TAKES WITH 100MCG FOR 250MCG TOTAL Levothyroxine Sodium (Synthroid) 100 Mcg Tablet, 100 MCG PO DAILY, (Reported) TAKES WITH 150MCG FOR 250MCG TOTAL Icard Carbonate (Icard Carbonate) 300 Mg Capsule, 300 MG PO BID for mood for 7 Days, #14 Loratadine (Claritin) 10 Mg Tablet, 10 MG PO DAILY, (Reported) Multivitamins (I-Shabbir Tablet) 1 Each Tablet, 1 TAB PO BID, (Reported) Pantoprazole Sodium (Pantoprazole Sodium) 40 Mg Tablet.dr, 40 MG PO DAILY, (Reported) Prazosin Hcl (Prazosin HCl) 1 Mg Capsule, 1 MG PO QHS, (Reported) Prednisone (Prednisone) 1 Mg Tablet, 1 MG PO QHS, (Reported) Salsalate (Salsalate) 750 Mg Tablet, 750 MG PO BID for PAIN, (Reported) Vitamin B Complex/Folic Acid (B-Complex Tablet) 1 Tab Tab, 1 TAB PO DAILY, (Reported) Zaleplon (Zaleplon) 10 Mg Capsule, 10 MG PO QHS, (Reported) Scheduled PRN Diclofenac Sodium (Diclofenac Sodium) 1% 100GM Gel..gram., 2 GM TOP BID PRN for PAIN, (Reported) Apply to area of pain Oxycodone HCl (Oxycodone Hydrochloride) 5 Mg Capsule, 5 MG PO TIDP PRN for pain, (Reported) Simethicone (Simethicone) 80 Mg Tab.chew, 80 MG PO QID PRN for GAS PAIN, (Reported) Trazodone HCl (Trazodone HCl) 100 Mg Tablet, 200 MG PO QHS PRN for INSOMNIA, (Reported) Allergies Coded Allergies: ENVIROMENTAL (Unverified Allergy, Unknown, 01/26/15) LISA NUÑEZ DO May 06, 2019 10:32
[2019-05-06] MEDS ORDERED: LITH300C PO (15:09)
[2019-05-07] MEDS ORDERED: DULoxetine 30 MG CAP (CYMBALTA) PO SCH (09:00)
== END 2019-05-06 15:07 | disposition home or self-care (01) | DRG 881 ==
LOC: M ED 00:24 → M ED INP 10:28 → M PSY 13:10
PROVIDERS: ADMIT Psychiatry & Neurology Addiction Medicine; ATTEND Psychiatry & Neurology Addiction Medicine
DX: F32.9 Major depressive disorder, single episode, unspecified (principal); F43.12 Post-traumatic stress disorder, chronic; F10.20 Alcohol dependence, uncomplicated; F17.210 Nicotine dependence, cigarettes, uncomplicated; E66.01 Morbid (severe) obesity due to excess calories; Z68.33 Body mass index [BMI] 33.0-33.9, adult; Z98.84 Bariatric surgery status; I10 Essential (primary) hypertension; G47.33 Obstructive sleep apnea (adult) (pediatric); J44.9 Chronic obstructive pulmonary disease, unspecified; K21.9 Gastro-esophageal reflux disease without esophagitis; Z85.850 Personal history of malignant neoplasm of thyroid; Z87.81 Personal history of (healed) traumatic fracture; Z81.8 Family history of other mental and behavioral disorders; F40.01 Agoraphobia with panic disorder; Z91.5 Personal history of self-harm; I27.20 Pulmonary hypertension, unspecified; E89.0 Postprocedural hypothyroidism; M25.562 Pain in left knee; Z79.899 Other long term (current) drug therapy; Z91.09 Other allergy status, other than to drugs and biological substances; Z86.711 Personal history of pulmonary embolism; K22.70 Barrett's esophagus without dysplasia; D50.9 Iron deficiency anemia, unspecified; M81.0 Age-related osteoporosis without current pathological fracture; E55.9 Vitamin D deficiency, unspecified

== ENCOUNTER → 2019-11-27 | Outpatient (CLI) | payer MEDICARE, OTHER ==
[~2019-11-27] MED LIST changes: +CLAR10TA7 PO; +D31000TA2 PO; +DICL1GEL3 TOP; +ELIQ2.5T PO; +FLON1SPR; +LITH300C PO; +OCUVTA PO; +OXYC1CAP PO; +PANT40TA29 PO; -PANT40TA3 PO; +PRAZ1CAP PO; +PRAZ5CAP PO; +PRED1TABL PO; +SALS750T10 PO; +SYNT100T PO; +TRAZ-189 PO; +VITA200038 PO; +ZALE10CA PO
--- NOTE | 2019-11-27 10:33 | REP ---
Clinical: Trauma. Technique: Frontal view of the chest with four views of the right hemithorax. Findings: Frontal view of the chest demonstrates demonstrates small area of opacity at the right base suggesting small infiltrate. Multiple views of the right hemithorax are somewhat limited due to osteopenia and overlying opacities. No definite acute or obvious displaced rib fracture noted. Impression: 1. Small right lower lobe opacity concerning for acute atelectasis or early pneumonia. 2. No definite acute or displaced right rib fracture identified. Electronically Signed by Greg Zacarias MD 11/27/2019 10:24 A
== END ==
LOC: M ADAMS 09:59
PROVIDERS: ATTEND Physician Assistant
DX: S29.011A Strain of muscle and tendon of front wall of thorax, initial encounter (principal); X58.XXXA Exposure to other specified factors, initial encounter; Y92.89 Other specified places as the place of occurrence of the external cause

== ENCOUNTER 2020-03-14 09:10 | Inpatient (IN) | payer MEDICARE, OTHER ==
[~2020-03-14] VITALS: Ht 180.3 cm; Wt 129.6 kg
[~2020-03-14 09:10] MED LIST changes: -D31000TA2 PO; -PRAZ5CAP PO
[2020-03-14] MEDS ORDERED: ONDANSETRON 4MG/2ML VIAL IV ONE (09:45)
[2020-03-14] MEDS: MORPHINE 4 MG/ML 1ML VIAL/SYRINGE (J2270) IV PRN ×2 (10:20→11:15)
--- NOTE | 2020-03-14 10:52 | REP ---
INDICATION: trauma. COMPARISON: PA chest 11/27/2019, CT 02/28/2016 TECHNIQUE: PA chest with 5 left rib images. FINDINGS: PA chest: Lungs hypoinflated. Some volume loss in the left hemithorax with elevated diaphragm, clavicles and visualized ribs intact, unchanged. Some compressive atelectatic changes noted adjacent to the left diaphragm. No definite effusion or dense consolidation. No pneumothorax. Some minor lateral pleural thickening bilaterally in the mid upper lung zones. Heart size not enlarged for low level of inflation. The aorta is calcified at the arch and tortuous, unchanged. The airway intact. No edema or vascular redistribution. Left ribs: There is evidence of a posterior left 5th rib fracture with cortical offset. This is best seen on image 4 I do not see other definite fracture lines. Posterior rib articulations clavicles scapula and visualized left humerus unremarkable. Degenerative changes throughout the thoracic spine noted with some dextroconvex curvature. IMPRESSION: 1. Posterior left 5th rib fracture without effusion or pneumothorax. This appears acute. 2. There is COPD and some fibrosis with low lung volumes and elevated left diaphragm. Some compressive atelectatic change along that left diaphragm. No other significant or acute finding. <Electronically signed by Simon Heart > 03/14/20 [id number]
[2020-03-14] MEDS ORDERED: ISOVUE-370 76% 100ML VIAL As Ordered ONE (11:05)
--- NOTE | 2020-03-14 12:03 | REP ---
INDICATION: trauma. COMPARISON: PA chest with left ribs, CT 02/28/2016. TECHNIQUE: Bolus 100 mL Isovue 370 scanning through the chest with coronal and sagittal reconstructions. FINDINGS: The lung zuniga show slight elevation of the left diaphragm. There is bibasilar dependent atelectatic change or patchy infiltrates in the deep sulci and compressive atelectatic change adjacent to the diaphragms. No pleural effusion. Some mild left lateral pleural thickening. Posterolateral left 5th rib fracture as noted on radiograph but 6th and 7th rib nondisplaced fractures are also seen by CT no other left or right rib fractures evident. There is no pneumothorax. No pneumomediastinum heart size not grossly enlarged and there is no pericardial thickening or effusion. The aorta is without aneurysm or dissection. Calcifications in the arch again noted the main right and left pulmonary arteries in the mediastinum are without filling defects. There is no hilar, axillary or supraclavicular mass. Degenerative changes in the spine with mild dextro convex curvature in the midthoracic region. There is a a benign hemangioma in the T10 vertebral body unchanged. Medial clavicles, visualized the scapulae and left humeral head were unremarkable sternum and manubrium intact. No compression deformities in the spine. Liver and spleen show only a small cyst is in the anterior liver unchanged. No biliary dilatation. Gallbladder grossly intact. Adrenal glands, spleen and pancreas unremarkable. Prior gastric bypass with the surgical staple lines and gastrojejunostomy. IMPRESSION: 1. Posterolateral left 5th rib fracture as on x-ray this date but also left lateral 6th and 7th rib fractures seen, nondisplaced. Some pleural thickening adjacent but no effusion or pneumothorax 2. Deep sulcus dependent atelectatic change or patchy infiltrates without effusion. There is compressive atelectasis adjacent to the diaphragms with slight elevation of the left diaphragm as on previous studies. 3. No cardiomegaly, chamber enlargement, pericardial effusion or other acute finding in mediastinum. 4. Prior gastric bypass. <Electronically signed by Simon Heart > 03/14/20 [id number]
--- NOTE | 2020-03-14 12:16 | REP ---
INDICATION: trauma. COMPARISON: 01/26/2015. TECHNIQUE: Bolus 100 mL Isovue 370 scanning through the abdomen and pelvis with coronal and sagittal reconstructions. FINDINGS: CT abdomen: Lung bases with dependent atelectasis or patchy infiltrates and some compressive atelectatic change adjacent to the diaphragms. No significant effusion visible. See no hiatal hernia prior gastric bypass noted heart not enlarged no pericardial thickening or effusion liver is not enlarged it shows a cyst in the sub capsular anterior aspect near the fissure unchanged. Smaller cyst near the gallbladder fossa on image 60 9 also unchanged no hepatosplenomegaly focal splenic lesion or ascites colon and small bowel loops in the upper abdomen are without acute finding there is moderate stool in the transverse colon. Small bowel loops unremarkable I see no ascites, perforation or free air in the abdomen or pelvis. Gallbladder distended without calcified stone or wall thickening. Pancreas unremarkable. Adrenal glands normal. Kidneys show extrarenal pelves bilaterally. There is no renal stone. No ureteral dilatation or stone. The aorta has atherosclerotic calcifications without aneurysm. Bone windows show lower thoracic and upper lumbar spine normal there is a central depression of the L4 vertebral body without paraspinal hematoma to suggest any acuity. This is a grade 2 compression. There is no retropulsed fragment or involvement of the posterior border of the L4 vertebral body CT pelvis: Bony sacrum, pelvis and hips are without fracture or focal lesion. Bladder only minimally filled but without stone mass or debris. No distal ureteral dilatation or stone. The reservoir for the patient's penile implant noted near the left inguinal canal in the lower pelvis adjacent to the deep fascia of oblique muscles. There is no inguinal hernia with bowel loops on either side. Small bowel loops are fluid-filled in the abdomen and pelvis are unremarkable there is no perforation or free air in the pelvis. Distal left colon sigmoid and rectum unremarkable. IMPRESSION: 1. Evidence of an old L2 central superior endplate depression without paraspinal hematoma to suggest acuity and no involvement of the posterior wall of the vertebral body or retropulsion into the canal. The other vertebral bodies, sacrum, pelvis and hips were unremarkable. 2. No abdominal or pelvic ascites perforation or free air. 3. A couple of small liver cyst with a solid organs in the upper abdomen otherwise unremarkable. 4. Status post gastric bypass and a penile implant with reservoir as described. <Electronically signed by Simon Heart > 03/14/20 [id number]
[2020-03-14] MEDS ORDERED: ACETAMINOPHEN TAB 650MG DOSE (2X325MG) PO PRN (13:15)
--- NOTE | 2020-03-14 13:15 | HPEPDOC ---
General Date of Admission 03/14/20 Date of Service: Mar 14, 2020 Chief Complaint The patient is a 64-year-old male admitted with a reason for visit of FALL. Source: Patient Exam Limitations: No limitations Timing/Duration: 24 hours Severity: Moderate History of Present Illness Patient is 64 m PMH of morbid obesity s/p gastric bypass surgery, PTSD/ Major Depression/ Suicidal attempts int the past , hypertension, PATTY on CPAP, COPD/ Emphysema, Moderate pulmonary hypertension, history of Pulmonary embolism, GERD, thyroid cancer s/p surgery now with hypothyroidism, left knee pain presenting to the hospital after mechanical fall. Patient stated that he fall downstairs at 1 AM. In ER patient was found to have on the chest x-ray nondisplaced 5, 6 and 7 ribs fractures nondisplaced. Deep sulcus dependent atelectatic change or patchy infiltrates without effusion. There is compressive atelectasis adjacent to the diaphragms with slight elevation of the left diaphragm as on previous studies. Patient stated that he has been having trouble with breathing because of pain. Home Medications Scheduled Apixaban (Eliquis) 2.5 Mg Tablet, 2.5 MG PO BID, (Reported) Cholecalciferol (Vitamin D3) (Vitamin D3) 2,000 Unit Tablet, 2,000 UNIT PO DAILY, (Reported) Docusate Sodium (Colace) 100 Mg Cap, 200 MG PO BID, (Reported) Duloxetine Hcl (Duloxetine HCl) 60 Mg Capsule.dr, 120 MG PO DAILY for DEPRESSION, (Reported) Ferrous Gluconate (Ferrous Gluconate) 324 Mg Tab, 324 MG PO BID, (Reported) Furosemide (Furosemide) 40 Mg Tab, 40 MG PO DAILY, (Reported) Levothyroxine Sodium (Synthroid) 150 Mcg Tab, 150 MCG PO DAILY, (Reported) TAKES WITH 100MCG FOR 250MCG TOTAL Levothyroxine Sodium (Synthroid) 100 Mcg Tablet, 100 MCG PO DAILY, (Reported) TAKES WITH 150MCG FOR 250MCG TOTAL Rector Carbonate (Rector Carbonate) 300 Mg Capsule, 300 MG PO BID for mood Loratadine (Claritin) 10 Mg Tablet, 10 MG PO DAILY, (Reported) Multivitamins (I-Shabbir Tablet) 1 Each Tablet, 1 TAB PO BID, (Reported) Pantoprazole Sodium (Pantoprazole Sodium) 40 Mg Tablet.dr, 40 MG PO DAILY, (Reported) Vitamin B Complex/Folic Acid (B-Complex Tablet) 1 Tab Tab, 1 TAB PO DAILY, (Reported) Scheduled PRN Diclofenac Sodium (Diclofenac Sodium) 1% 100GM Gel..gram., 2 GM TOP BID PRN for PAIN, (Reported) Apply to area of pain Simethicone (Simethicone) 80 Mg Tab.chew, 80 MG PO QID PRN for GAS PAIN, (Reported) Allergies Coded Allergies: ENVIROMENTAL (Unverified Allergy, Unknown, 01/26/15) Past Medical History Medical History PTSD/DEPRESSION/SUICIDAL IDEATION - DR LARA EMPHYSEMA PE 09/20 THYROID CA S/P THYROIDECTOMY S/P HYPOTHYROIDISM GERD MOD PLUM HTN REYEZ'S ESOPHAGUS/GERD HTN PATTY ON CPAP COPD NICOTINE DEP H/O MORBID OBESITY s/p gastric bypass in 2008 HEARING LOSS IRON DEF ANEMIA VIT D DEF OSTEOPENIA Surgical History SINUS RECONSTRUCTION 1974 RIGHT EAR SURGERY 1973 TONSILLECTOMY A CHILD HIATAL HERNIA REPAIR TWISTED BOWEL REPAIR GASTRIC BYPASS 2008 THYROIDECTOMY 2006 PENILE IMPLANT 2012 Family History MOTHER: , UNSPECIFIED HEART DISEASE 2 BROTHER(S) , 1 SISTER(S) . 1 SON(S) , 1 DAUGHTER(S) - HEALTHY. FATHER: LUNG CA, BROTHERS: , ONE FROM BRAIN ANEURYSM SISTER: FROM DRUGS. Social History * Smoker: Denies Alcohol: Denies Drugs: denies A-FIB/CHADSVASC A-FIB History Current/History of A-Fib/PAF?: No Current PO Anticoag Therapy: No Review of Systems Constitutional: Denies: Chills, Fever Eyes: Denies: Pain, Vision change ENT: Denies: Head Aches Skin: Denies: Rash, Lesions Pulmonary: Reports: Dyspnea Cardiovascular: Denies: Chest Pain, Palpitations Gastrointestinal: Denies: Nausea, Vomiting Genitourinary: Denies: Dysuria Hematologic: Denies: Bruising Endocrine: Denies: Polydipsia Musculoskeletal: Reports: Other Symptoms (left musculoskeletal chest pain over ribs 5, 6,7) Neurological: Denies: Weakness, Numbness Psych: Reports: Mood Normal Physical Examination General Exam: Positive: Alert, Cooperative Eye Exam: Positive: PERRLA ENT Exam: Positive: Atraumatic Neck Exam: Positive: Supple; Negative: JVD Chest Exam: Positive: Diminished, Other (tenderness over ribs 5,6,7 chest wall) Heart Exam: Positive: Rate Normal Telemetry: Positive: No significant arrhythmia Abdomen Exam: Positive: Normal bowel sounds Extremity Exam: Negative: Clubbing Skin Exam: Positive: Nl turgor and temperature Neuro Exam: Positive: Strength at 5/5 X4 ext, Cranial Nerves 3-12 NL Psych Exam: Positive: Mental status NL Vital Signs Vital Signs Date Time Temp Pulse Resp B/P (MAP) Pulse Ox O2 Delivery O2 Flow Rate FiO2 03/14/20 11:15 16 03/14/20 10:55 75 03/14/20 10:40 94 03/14/20 10:04 03/14/20 09:11 97.7 Room Air Laboratory Data Labs 24H Laboratory Tests 2 03/14/20 10:05: POC Glucose (Misc Panel) 118H, POC Sodium (Misc Panel) 139, POC Potassium (Misc Panel) 4.4, POC Chloride (Misc Panel) 103, POC Total CO2 (Misc Panel) 29.0H, POC Blood Urea Nitrogen (Misc Panel 13, POC Ionized Calcium (Misc Panel) 4.6, POC Creatinine (Misc Panel) 0.9, POC Hematocrit (Misc Panel) 50.0 Assessment/Plan Patient is 64 m PMH of morbid obesity s/p gastric bypass surgery, PTSD/ Major Depression/ Suicidal attempts int the past , hypertension, PATTY on CPAP, COPD/ Emphysema, Moderate pulmonary hypertension, history of Pulmonary embolism, GERD, thyroid cancer s/p surgery now with hypothyroidism, left knee pain presenting to the hospital after mechanical fall. Patient stated that he fall downstairs at 1 AM. In ER patient was found to have on the chest x-ray nondisplaced 5, 6 and 7 ribs fractures nondisplaced. Deep sulcus dependent atelectatic change or patchy infiltrates without effusion. There is compressive atelectasis adjacent to the diaphragms with slight elevation of the left diaphragm as on previous studies. Patient stated that he has been having trouble with breathing because of pain. Problems (1) Multiple fractures of ribs, left side, initial encounter for closed fracture Status: Acute Problem Text: Pain management Incentive spirometer PT/Ot (2) Hypothyroidism Status: Chronic Problem Text: Continue levothyroxine (3) COPD (chronic obstructive pulmonary disease) Status: Chronic Problem Text: Not in acute exacerbation Continue inhalers (4) Pulmonary embolism Status: Chronic Problem Text: Continue apixaban 2.5 twice a day Plan / VTE VTE Prophylaxis Ordered?: Yes CRYSTAL BLACKWOOD DO Mar 14, 2020 13:15
[2020-03-14] MEDS ORDERED: D31000TA2 PO (13:48)
[2020-03-14] MEDS ORDERED: LITH300C PO (13:48)
[2020-03-14] MEDS ORDERED: PRAZ5CAP PO (13:48)
[2020-03-14] MEDS: PERCOCET 5MG/325MG TAB PO PRN ×2 (15:27→20:29)
[2020-03-14] MEDS ORDERED: PANTOPRAZOLE 40MG TAB (PROTONIX) PO PRN (16:45)
[2020-03-14] MEDS ORDERED: SIMETHICONE 80 MG CHEW TAB PO PRN (16:45)
[2020-03-14 18:15] VITALS: BP 137/81
[2020-03-14] MEDS ORDERED: MORPHINE 2 MG/ML 1ML VIAL (J2270) IV PRN (18:45)
[2020-03-14] MEDS ORDERED: MORPHINE 2 MG/ML 1ML VIAL (J2270) IV ONE (19:00)
[2020-03-14] MEDS: DOCUSATE SODIUM 100 MG CAP PO SCH (20:26)
[2020-03-14] MEDS: LITHIUM CARBONATE 300 MG CAP PO SCH (20:26)
[2020-03-14] MEDS: FERROUS GLUCONATE 324 MG TAB PO SCH (20:26)
[2020-03-14] MEDS: APIXABAN 2.5 MG TAB (ELIQUIS) PO SCH (20:26)
[2020-03-14 22:00] VITALS: BP 124/67
[2020-03-15] MEDS: PERCOCET 5MG/325MG TAB PO PRN ×5 (00:54→20:23)
[2020-03-15 06:00] VITALS: BP 128/66
[2020-03-15] MEDS: LEVOTHYROXINE 100MCG TABLET (0.1MG) PO SCH (06:06)
[2020-03-15] MEDS: LEVOTHYROXINE 150MCG TABLET (0.15MG) PO SCH (06:06)
[2020-03-15 06:56] LABS: HEMATOCRIT 45.9 % (42.0-52.0); HEMOGLOBIN 15.3 g/dl (13.5-17.5); MEAN CORPUSCULAR HEMOGLOBIN 31.4 pg (27.0-33.0); MEAN CORPUSCULAR HGB CONC 33.3 g/dl (32.0-36.5); MEAN CORPUSCULAR VOLUME 94.1 fl (80.0-96.0); PLATELET COUNT, AUTOMATED 143 10^3/uL (150-450); RED BLOOD COUNT 4.88 10^6/uL (4.30-6.10); WHITE BLOOD COUNT 8.5 10^3/uL (4.0-10.0)
[2020-03-15 07:14] LABS: BLOOD UREA NITROGEN 18 MG/DL (7-18); CALCIUM LEVEL 8.8 MG/DL (8.8-10.2); CARBON DIOXIDE LEVEL 28 MEQ/L (21-32); CHLORIDE LEVEL 104 MEQ/L (98-107); CREATININE FOR GFR 0.84 MG/DL (0.70-1.30); GLOMERULAR FILTRATION RATE > 60.0 (>49); GLUCOSE, FASTING 104 MG/DL (70-100); MAGNESIUM LEVEL 2.2 MG/DL (1.8-2.4); POTASSIUM SERUM 4.3 MEQ/L (3.5-5.1); SODIUM LEVEL 139 MEQ/L (136-145)
[2020-03-15] MEDS: APIXABAN 2.5 MG TAB (ELIQUIS) PO SCH (08:44)
[2020-03-15] MEDS: FUROSEMIDE 40 MG TAB PO SCH (08:44)
[2020-03-15] MEDS: LORATADINE 10 MG TAB PO SCH (08:44)
[2020-03-15] MEDS: DOCUSATE SODIUM 100 MG CAP PO SCH ×2 (08:44→20:22)
[2020-03-15] MEDS: DULoxetine 30 MG CAP (CYMBALTA) PO SCH (08:44)
[2020-03-15] MEDS: FERROUS GLUCONATE 324 MG TAB PO SCH ×2 (08:44→20:22)
[2020-03-15] MEDS: LITHIUM CARBONATE 300 MG CAP PO SCH ×2 (08:44→20:22)
[2020-03-15] MEDS ORDERED: ENOXAPARIN 40MG/0.4ML SYRINGE (J1650 PER 10MG) SC SCH (09:00)
[2020-03-15] MEDS ORDERED: MORPHINE 2 MG/ML 1ML VIAL (J2270) IV PRN (10:00)
[2020-03-15] MEDS: guaiFENesin DM LIQ 10ML UD PO PRN ×3 (11:02→20:23)
[2020-03-15] MEDS: tiZANidine 4 MG TAB PO PRN (11:03)
[2020-03-15] MEDS ORDERED: PILL CUTTER 1 EACH XX PRN (11:15)
[2020-03-15 14:00] VITALS: BP 117/89
--- NOTE | 2020-03-15 14:27 | IPNPDOC ---
Text Note Date of Service The patient was seen on 03/15/20. NOTE Subjective: Patient has increased excruciating pain in the left upper back th oracic area, he states it difficult to breathe because of severe ribs pain 10 out of 10. Patient is severely agitated due to pain. Patient stated this pain intolerable. Objective: GENERAL APPEARANCE: Patient severe distress, diaphoretic HEENT: no scleral icterus, no JVD, EOMI CARDIOVASCULAR: S1S2, tachycardic LUNGS: Diminished lung sounds bilaterally ABDOMEN: soft & not tender w palpitation MUSCULOSKELETAL: no cyanosis, no swelling, tenderness over upper back area T1-6 on the left side. Severe tenderness over left ribs 5-7 INTEGUMENT: no generalized palor NEUROLOGICAL: cranial nerve function from 2-12 intact intact, follows commands, speech not dysarthric Patient is 64 m PMH of morbid obesity s/p gastric bypass surgery, PTSD/ Major Depression/ Suicidal attempts int the past , hypertension, PATTY on CPAP, COPD/ Emphysema, Moderate pulmonary hypertension, history of Pulmonary embolism, GERD, thyroid cancer s/p surgery now with hypothyroidism, left knee pain presenting to the hospital after mechanical fall. Patient stated that he fall downstairs at 1 AM. In ER patient was found to have on the chest x-ray nondisplaced 5, 6 and 7 ribs fractures nondisplaced. Deep sulcus dependent atelectatic change or patchy infiltrates without effusion. There is compressive atelectasis adjacent to the diaphragms with slight elevation of the left diaphragm as on previous studies. Patient stated that he has been having trouble with breathing because of pain. Problems (1) Multiple fractures of ribs, left side, initial encounter for closed fracture I intensified pain management: increase the dose of morphine, added ketorolac Continuous pulse oximetry Heating pads over upper thoracic back area I talked to Dr. Feliz about epidural anesthesia, patient was on Eliquis which is contraindication for now. I stopped Eliquis Incentive spirometer PT/Ot (2) Hypothyroidism Continue levothyroxine (3) COPD (chronic obstructive pulmonary disease) Not in acute exacerbation Continue inhalers (4) Pulmonary embolism Eliquis on hold due to possible epidural anesthesia in 48 hours VS,Fishbone, I+O VS, Fishbone, I+O Laboratory Tests 03/15/20 06:26 Vital Signs Date Time Temp Pulse Resp B/P (MAP) Pulse Ox O2 Delivery O2 Flow Rate FiO2 03/15/20 12:48 18 03/15/20 11:33 Room Air 03/15/20 06:00 98.1 63 128/66 (86) 91 03/14/20 21:00 1.0 I&O- Last 24 Hours up to 6 AM 03/15/20 06:00 Intake Total 910 ml Output Total 970 ml Balance -60 ml CRYSTAL BLACKWOOD DO Mar 15, 2020 14:27
[2020-03-15] MEDS: KETOROLAC 30 MG/ML 1ML VIAL IV SCH ×2 (15:21→20:22)
[2020-03-15 15:31] VITALS: O2SAT 93
[2020-03-15] MEDS: MORPHINE 4 MG/ML 1ML VIAL/SYRINGE (J2270) IV PRN ×2 (17:11→23:29)
[2020-03-15 22:00] VITALS: BP 127/85
[2020-03-15 22:26] VITALS: O2SAT 93
[2020-03-16] MEDS: guaiFENesin DM LIQ 10ML UD PO PRN ×3 (01:37→12:45)
[2020-03-16] MEDS: PERCOCET 5MG/325MG TAB PO PRN ×3 (01:37→12:45)
[2020-03-16] MEDS: tiZANidine 4 MG TAB PO PRN ×3 (01:44→20:45)
[2020-03-16] MEDS: KETOROLAC 30 MG/ML 1ML VIAL IV SCH ×4 (02:49→20:43)
[2020-03-16] MEDS: MORPHINE 4 MG/ML 1ML VIAL/SYRINGE (J2270) IV PRN (04:46)
[2020-03-16] MEDS: LEVOTHYROXINE 100MCG TABLET (0.1MG) PO SCH (05:57)
[2020-03-16] MEDS: LEVOTHYROXINE 150MCG TABLET (0.15MG) PO SCH (05:57)
[2020-03-16 06:00] VITALS: BP 140/95
[2020-03-16] MEDS: FUROSEMIDE 40 MG TAB PO SCH (08:45)
[2020-03-16] MEDS: DOCUSATE SODIUM 100 MG CAP PO SCH ×2 (08:45→20:41)
[2020-03-16] MEDS: FERROUS GLUCONATE 324 MG TAB PO SCH ×2 (08:46→20:42)
[2020-03-16] MEDS: DULoxetine 30 MG CAP (CYMBALTA) PO SCH (08:46)
[2020-03-16] MEDS: LITHIUM CARBONATE 300 MG CAP PO SCH ×2 (08:46→20:42)
[2020-03-16] MEDS: LORATADINE 10 MG TAB PO SCH (08:46)
[2020-03-16 09:00] VITALS: O2SAT 94
[2020-03-16 14:00] VITALS: BP 105/65
--- NOTE | 2020-03-16 16:56 | IPNPDOC ---
Text Note Date of Service The patient was seen on 03/16/20. NOTE Subjective: Patient continues to have severe left-sided chest pain, he stated it's painful to breathe. However his pain less intense than yesterday Objective: GENERAL APPEARANCE: Patient severe distress, diaphoretic HEENT: no scleral icterus, no JVD, EOMI CARDIOVASCULAR: S1S2, tachycardic LUNGS: Diminished lung sounds bilaterally ABDOMEN: soft & not tender w palpitation MUSCULOSKELETAL: no cyanosis, no swelling, tenderness over upper back area T1-6 on the left side. Severe tenderness over left ribs 5-7 INTEGUMENT: no generalized palor NEUROLOGICAL: cranial nerve function from 2-12 intact intact, follows commands, speech not dysarthric Patient is 64 m PMH of morbid obesity s/p gastric bypass surgery, PTSD/ Major Depression/ Suicidal attempts int the past , hypertension, PATTY on CPAP, COPD/ Emphysema, Moderate pulmonary hypertension, history of Pulmonary embolism, GERD, thyroid cancer s/p surgery now with hypothyroidism, left knee pain presenting to the hospital after mechanical fall. Patient stated that he fall downstairs at 1 AM. In ER patient was found to have on the chest x-ray nondisplaced 5, 6 and 7 ribs fractures nondisplaced. Deep sulcus dependent atelectatic change or patchy infiltrates without effusion. There is compressive atelectasis adjacent to the diaphragms with slight elevation of the left diaphragm as on previous studies. Patient stated that he has been having trouble with breathing because of pain. Problems (1) Multiple fractures of ribs, left side, initial encounter for closed fracture I intensified pain management: increase the dose of morphine, added ketorolac Continuous pulse oximetry Heating pads over upper thoracic back area I talked to Dr. Feliz about epidural anesthesia, patient was on Eliquis which is contraindication for now. I stopped Eliquis on 03/15/20. We need to wait 36 hours Incentive spirometer PT/Ot (2) Hypothyroidism Continue levothyroxine (3) COPD (chronic obstructive pulmonary disease) Not in acute exacerbation Continue inhalers (4) Pulmonary embolism Eliquis on hold due to possible epidural anesthesia VS,Fishbone, I+O VS, Fishbone, I+O Vital Signs Date Time Temp Pulse Resp B/P (MAP) Pulse Ox O2 Delivery O2 Flow Rate FiO2 11/9/20 14:00 97.8 80 18 105/65 (78) 94 Room Air 03/14/20 21:00 1.0 I&O- Last 24 Hours up to 6 AM 03/16/20 06:00 Intake Total 1340 ml Output Total 625 ml Balance 715 ml CRYSTAL BLACKWOOD DO Mar 16, 2020 16:56
[2020-03-16 22:00] VITALS: BP 112/69
[2020-03-17 02:44] VITALS: O2SAT 93
[2020-03-17] MEDS: KETOROLAC 30 MG/ML 1ML VIAL IV SCH ×4 (02:57→20:40)
[2020-03-17] MEDS: tiZANidine 4 MG TAB PO PRN ×2 (05:39→15:08)
[2020-03-17] MEDS: LEVOTHYROXINE 100MCG TABLET (0.1MG) PO SCH (05:39)
[2020-03-17] MEDS: LEVOTHYROXINE 150MCG TABLET (0.15MG) PO SCH (05:39)
[2020-03-17 06:00] VITALS: BP 115/71
[2020-03-17] MEDS: LORATADINE 10 MG TAB PO SCH (08:01)
[2020-03-17] MEDS: LITHIUM CARBONATE 300 MG CAP PO SCH ×2 (08:01→20:39)
[2020-03-17] MEDS: guaiFENesin DM LIQ 10ML UD PO PRN ×2 (08:01→12:12)
[2020-03-17] MEDS: DOCUSATE SODIUM 100 MG CAP PO SCH ×2 (08:02→20:39)
[2020-03-17] MEDS: FUROSEMIDE 40 MG TAB PO SCH (08:02)
[2020-03-17] MEDS: FERROUS GLUCONATE 324 MG TAB PO SCH ×2 (08:02→20:39)
[2020-03-17] MEDS: DULoxetine 30 MG CAP (CYMBALTA) PO SCH (08:02)
[2020-03-17] MEDS: PERCOCET 5MG/325MG TAB PO PRN (12:13)
--- NOTE | 2020-03-17 13:00 | IPNPDOC ---
Text Note Date of Service The patient was seen on 03/17/20. NOTE Subjective: Patient stated he feels little bit better today. However he continues to have severe left-sided chest pain exacerbated with deep breathing Objective: GENERAL APPEARANCE: Patient severe distress, diaphoretic HEENT: no scleral icterus, no JVD, EOMI CARDIOVASCULAR: S1S2, tachycardic LUNGS: Diminished lung sounds bilaterally ABDOMEN: soft & not tender w palpitation MUSCULOSKELETAL: no cyanosis, no swelling, tenderness over upper back area T1-6 on the left side. Severe tenderness over left ribs 5-7 INTEGUMENT: no generalized palor NEUROLOGICAL: cranial nerve function from 2-12 intact intact, follows commands, speech not dysarthric Patient is 64 m PMH of morbid obesity s/p gastric bypass surgery, PTSD/ Major Depression/ Suicidal attempts int the past , hypertension, PATTY on CPAP, COPD/ Emphysema, Moderate pulmonary hypertension, history of Pulmonary embolism, GERD, thyroid cancer s/p surgery now with hypothyroidism, left knee pain presenting to the hospital after mechanical fall. Patient stated that he fall downstairs at 1 AM. In ER patient was found to have on the chest x-ray nondisplaced 5, 6 and 7 ribs fractures nondisplaced. Deep sulcus dependent atelectatic change or patchy infiltrates without effusion. There is compressive atelectasis adjacent to the diaphragms with slight elevation of the left diaphragm as on previous studies. Patient stated that he has been having trouble with breathing because of pain. Problems (1) Multiple fractures of ribs, left side, initial encounter for closed fracture I intensified pain management: increase the dose of morphine, added ketorolac, added gabapentin Continuous pulse oximetry Heating pads over upper thoracic back area I talked to Dr. Feliz about epidural anesthesia, patient was on Eliquis which is contraindication for now. I stopped Eliquis on 03/15/20. I talked today to anesthesia team. They would like to wait one day more for epidural anesthesia Incentive spirometer PT/Ot (2) Hypothyroidism Continue levothyroxine (3) COPD (chronic obstructive pulmonary disease) Not in acute exacerbation Continue inhalers (4) Pulmonary embolism Eliquis on hold due to possible epidural anesthesia VS,Fishbone, I+O VS, Fishbone, I+O Vital Signs Date Time Temp Pulse Resp B/P (MAP) Pulse Ox O2 Delivery O2 Flow Rate FiO2 11/10/20 12:43 16 Room Air 03/17/20 06:00 98.2 67 115/71 (53) 96 2.0 I&O- Last 24 Hours up to 6 AM 03/17/20 06:00 Intake Total 1500 ml Output Total 4 ml Balance 1496 ml CRYSTAL BLACKWOOD DO Mar 17, 2020 13:00
[2020-03-17 14:00] VITALS: BP 116/73
[2020-03-17] MEDS: GABAPENTIN 100 MG CAP PO SCH ×2 (15:08→20:39)
[2020-03-17 22:00] VITALS: BP 118/71
[2020-03-17 23:32] VITALS: O2SAT 95
[2020-03-18] MEDS: KETOROLAC 30 MG/ML 1ML VIAL IV SCH ×4 (03:00→20:47)
[2020-03-18] MEDS: LEVOTHYROXINE 100MCG TABLET (0.1MG) PO SCH (05:42)
[2020-03-18] MEDS: LEVOTHYROXINE 150MCG TABLET (0.15MG) PO SCH (05:42)
[2020-03-18] MEDS: tiZANidine 4 MG TAB PO PRN ×2 (05:51→13:00)
[2020-03-18 06:00] VITALS: BP 123/75
[2020-03-18] MEDS ORDERED: MIDAZOLAM INJ 2MG/2ML VIAL (J2250 PER 1MG) IV SCH (06:00)
[2020-03-18] MEDS ORDERED: fentaNYL 100 MCG/2 ML INJECTION (J3010) IV SCH (06:00)
[2020-03-18 06:14] LABS: HEMATOCRIT 41.6 % (42.0-52.0); HEMOGLOBIN 13.8 g/dl (13.5-17.5); MEAN CORPUSCULAR HEMOGLOBIN 31.4 pg (27.0-33.0); MEAN CORPUSCULAR HGB CONC 33.2 g/dl (32.0-36.5); MEAN CORPUSCULAR VOLUME 94.5 fl (80.0-96.0); PLATELET COUNT, AUTOMATED 142 10^3/uL (150-450); WHITE BLOOD COUNT 5.6 10^3/uL (4.0-10.0)
[2020-03-18 06:34] LABS: BLOOD UREA NITROGEN 19 MG/DL (7-18); CALCIUM LEVEL 8.3 MG/DL (8.8-10.2); CARBON DIOXIDE LEVEL 27 MEQ/L (21-32); CHLORIDE LEVEL 107 MEQ/L (98-107); CREATININE FOR GFR 0.83 MG/DL (0.70-1.30); GLOMERULAR FILTRATION RATE > 60.0 (>49); GLUCOSE, FASTING 90 MG/DL (70-100); MAGNESIUM LEVEL 2.2 MG/DL (1.8-2.4); SODIUM LEVEL 138 MEQ/L (136-145)
[2020-03-18] MEDS: PERCOCET 5MG/325MG TAB PO PRN (06:40)
[2020-03-18] MEDS: DOCUSATE SODIUM 100 MG CAP PO SCH ×2 (09:00→20:47)
[2020-03-18] MEDS: FERROUS GLUCONATE 324 MG TAB PO SCH ×2 (09:00→20:47)
[2020-03-18] MEDS: LITHIUM CARBONATE 300 MG CAP PO SCH ×2 (10:40→20:47)
[2020-03-18] MEDS: DULoxetine 30 MG CAP (CYMBALTA) PO SCH (10:41)
[2020-03-18] MEDS: GABAPENTIN 100 MG CAP PO SCH ×3 (10:42→20:47)
[2020-03-18] MEDS: FUROSEMIDE 40 MG TAB PO SCH (10:42)
[2020-03-18] MEDS: LORATADINE 10 MG TAB PO SCH (10:54)
--- NOTE | 2020-03-18 12:30 | IPNPDOC ---
Text Note Date of Service The patient was seen on 03/18/20. NOTE Subjective: No any acute events overnight. Patient denied fever, chills, nausea, vomiting, diarrhea or dysuria Objective: GENERAL APPEARANCE: Patient severe distress, diaphoretic HEENT: no scleral icterus, no JVD, EOMI CARDIOVASCULAR: S1S2, tachycardic LUNGS: Diminished lung sounds bilaterally ABDOMEN: soft & not tender w palpitation MUSCULOSKELETAL: no cyanosis, no swelling, tenderness over upper back area T1-6 on the left side. Severe tenderness over left ribs 5-7 INTEGUMENT: no generalized palor NEUROLOGICAL: cranial nerve function from 2-12 intact intact, follows commands, speech not dysarthric Patient is 64 m PMH of morbid obesity s/p gastric bypass surgery, PTSD/ Major Depression/ Suicidal attempts int the past , hypertension, PATTY on CPAP, COPD/ Emphysema, Moderate pulmonary hypertension, history of Pulmonary embolism, GERD, thyroid cancer s/p surgery now with hypothyroidism, left knee pain presenting to the hospital after mechanical fall. Patient stated that he fall downstairs at 1 AM. In ER patient was found to have on the chest x-ray nondisplaced 5, 6 and 7 ribs fractures nondisplaced. Deep sulcus dependent atelectatic change or patchy infiltrates without effusion. There is compressive atelectasis adjacent to the diaphragms with slight elevation of the left diaphragm as on previous studies. Patient stated that he has been having trouble with breathing because of pain. Problems (1) Multiple fractures of ribs, left side, initial encounter for closed fracture I intensified pain management: increase the dose of morphine, added ketorolac, added gabapentin Continuous pulse oximetry Heating pads over upper thoracic back area I talked to Dr. Feliz about epidural anesthesia, patient was on Eliquis which is contraindication for now. I stopped Eliquis on 03/15/20. I talked today to anesthesia team. They will proceed with epidural anesthesia today Incentive spirometer PT/Ot (2) Hypothyroidism Continue levothyroxine (3) COPD (chronic obstructive pulmonary disease) Not in acute exacerbation Continue inhalers (4) Pulmonary embolism Eliquis on hold due to possible epidural anesthesia VS,Fishbone, I+O VS, Fishbone, I+O Laboratory Tests 03/18/20 05:45 Vital Signs Date Time Temp Pulse Resp B/P (MAP) Pulse Ox O2 Delivery O2 Flow Rate FiO2 03/18/20 07:10 17 03/18/20 06:00 98.6 68 123/75 (91) 95 Room Air 03/17/20 06:00 2.0 I&O- Last 24 Hours up to 6 AM 03/18/20 06:00 Intake Total 1440 ml Output Total 0 ml Balance 1440 ml CRYSTAL BLACKWOOD DO Mar 18, 2020 12:30
[2020-03-18] MEDS ORDERED: MIDAZOLAM INJ 2MG/2ML VIAL (J2250 PER 1MG) As Ordered ONE (13:29)
[2020-03-18] MEDS ORDERED: fentaNYL 100 MCG/2 ML INJECTION (J3010) As Ordered ONE (13:29)
[2020-03-18] MEDS ORDERED: FENTANYL 2MCG/ML BUPIVACAINE 0.0625% NACL 250ML IV BAG As Ordered ONE (13:57)
[2020-03-18] MEDS ORDERED: diphenhydrAMINE 50MG/ML VIAL (J1200) IV PRN (14:15)
[2020-03-18] MEDS ORDERED: EPIDURAL/PCA KEYS XX PRN (14:15)
[2020-03-18] MEDS ORDERED: WALLBOXKEY XX PRN (14:15)
[2020-03-18] MEDS ORDERED: METOCLOPRAMIDE INJ 10MG/2ML VIAL (J2765 PER 1) IV PRN (14:15)
[2020-03-18] MEDS ORDERED: NALOXONE INJ 0.4MG/1ML VIAL (J2310 PER 1MG) IV PRN (14:15)
[2020-03-18] MEDS ORDERED: ONDANSETRON 4MG/2ML VIAL IV PRN (14:15)
[2020-03-18] MEDS: FENTANYL/BUPIVACAINE/NACL BAG 250 ML EPIDURAL SCH (14:30)
[2020-03-18 14:55] VITALS: BP 96/68
[2020-03-18 18:31] VITALS: BP 116/70
[2020-03-18 22:00] VITALS: BP 129/81
[2020-03-19] MEDS: KETOROLAC 30 MG/ML 1ML VIAL IV SCH ×4 (03:00→20:46)
[2020-03-19] MEDS: LEVOTHYROXINE 150MCG TABLET (0.15MG) PO SCH (05:52)
[2020-03-19] MEDS: LEVOTHYROXINE 100MCG TABLET (0.1MG) PO SCH (05:52)
[2020-03-19 06:00] VITALS: BP 121/79
[2020-03-19 06:01] LABS: HEMATOCRIT 40.2 % (42.0-52.0); MEAN CORPUSCULAR HEMOGLOBIN 30.7 pg (27.0-33.0); MEAN CORPUSCULAR HGB CONC 32.3 g/dl (32.0-36.5); PLATELET COUNT, AUTOMATED 147 10^3/uL (150-450); RED BLOOD COUNT 4.23 10^6/uL (4.30-6.10); WHITE BLOOD COUNT 5.5 10^3/uL (4.0-10.0)
[2020-03-19 06:21] LABS: BLOOD UREA NITROGEN 15 MG/DL (7-18); CALCIUM LEVEL 8.2 MG/DL (8.8-10.2); CARBON DIOXIDE LEVEL 28 MEQ/L (21-32); CHLORIDE LEVEL 107 MEQ/L (98-107); CREATININE FOR GFR 0.83 MG/DL (0.70-1.30); GLOMERULAR FILTRATION RATE > 60.0 (>49); GLUCOSE, FASTING 89 MG/DL (70-100); MAGNESIUM LEVEL 2.2 MG/DL (1.8-2.4); POTASSIUM SERUM 4.1 MEQ/L (3.5-5.1); SODIUM LEVEL 141 MEQ/L (136-145)
[2020-03-19] MEDS: FERROUS GLUCONATE 324 MG TAB PO SCH ×2 (08:56→20:45)
[2020-03-19] MEDS: DULoxetine 30 MG CAP (CYMBALTA) PO SCH (08:56)
[2020-03-19] MEDS: GABAPENTIN 100 MG CAP PO SCH ×3 (08:56→20:45)
[2020-03-19] MEDS: DOCUSATE SODIUM 100 MG CAP PO SCH ×2 (08:56→20:45)
[2020-03-19] MEDS: LITHIUM CARBONATE 300 MG CAP PO SCH ×2 (08:57→20:45)
[2020-03-19] MEDS: FUROSEMIDE 40 MG TAB PO SCH (08:57)
[2020-03-19] MEDS: LORATADINE 10 MG TAB PO SCH (08:58)
--- NOTE | 2020-03-19 12:31 | IPNPDOC ---
Text Note Date of Service The patient was seen on 03/19/20. NOTE Subjective: No any acute events overnight. Patient denied fever, chills, nausea, vomiting, diarrhea or dysuria. Patient stated that after epidural anesthesia his back pain resolved. Patient able to participate in PT activity Objective: GENERAL APPEARANCE: Patient severe distress, diaphoretic HEENT: no scleral icterus, no JVD, EOMI CARDIOVASCULAR: S1S2, tachycardic LUNGS: Diminished lung sounds bilaterally ABDOMEN: soft & not tender w palpitation MUSCULOSKELETAL: no cyanosis, no swelling, tenderness over upper back area T1-6 on the left side. Severe tenderness over left ribs 5-7 INTEGUMENT: no generalized palor NEUROLOGICAL: cranial nerve function from 2-12 intact intact, follows commands, speech not dysarthric Patient is 64 m PMH of morbid obesity s/p gastric bypass surgery, PTSD/ Major Depression/ Suicidal attempts int the past , hypertension, PATTY on CPAP, COPD/ Emphysema, Moderate pulmonary hypertension, history of Pulmonary embolism, GERD, thyroid cancer s/p surgery now with hypothyroidism, left knee pain presenting to the hospital after mechanical fall. Patient stated that he fall downstairs at 1 AM. In ER patient was found to have on the chest x-ray nondisplaced 5, 6 and 7 ribs fractures nondisplaced. Deep sulcus dependent atelectatic change or patchy infiltrates without effusion. There is compressive atelectasis adjacent to the diaphragms with slight elevation of the left diaphragm as on previous studies. Patient stated that he has been having trouble with breathing because of pain. Problems (1) Multiple fractures of ribs, left side, initial encounter for closed fracture I intensified pain management: increase the dose of morphine, added ketorolac, added gabapentin Continuous pulse oximetry Heating pads over upper thoracic back area Continue epidural anesthesia Incentive spirometer PT/Ot (2) Hypothyroidism Continue levothyroxine (3) COPD (chronic obstructive pulmonary disease) Not in acute exacerbation Continue inhalers (4) Pulmonary embolism Eliquis on hold due to epidural anesthesia VS,Fishbone, I+O VS, Fishbone, I+O Laboratory Tests 03/19/20 05:35 Vital Signs Date Time Temp Pulse Resp B/P (MAP) Pulse Ox O2 Delivery O2 Flow Rate FiO2 03/19/20 06:00 97.7 65 16 121/79 (93) 92 Room Air 03/18/20 14:55 2.0 I&O- Last 24 Hours up to 6 AM 03/19/20 06:00 Intake Total 1530 ml Output Total 1400 ml Balance 130 ml CRYSTAL BLACKWOOD DO Mar 19, 2020 12:31
[2020-03-19] MEDS: FENTANYL/BUPIVACAINE/NACL BAG 250 ML EPIDURAL SCH (13:49)
[2020-03-19 14:00] VITALS: BP 118/72
[2020-03-19 22:00] VITALS: BP 112/69
[2020-03-20] MEDS: KETOROLAC 30 MG/ML 1ML VIAL IV SCH ×2 (02:53→08:42)
[2020-03-20] MEDS: LEVOTHYROXINE 150MCG TABLET (0.15MG) PO SCH (05:36)
[2020-03-20] MEDS: LEVOTHYROXINE 100MCG TABLET (0.1MG) PO SCH (05:36)
[2020-03-20 06:00] VITALS: BP 100/58
[2020-03-20 06:04] LABS: HEMATOCRIT 40.4 % (42.0-52.0); MEAN CORPUSCULAR HEMOGLOBIN 30.7 pg (27.0-33.0); MEAN CORPUSCULAR HGB CONC 32.2 g/dl (32.0-36.5); MEAN CORPUSCULAR VOLUME 95.3 fl (80.0-96.0); PLATELET COUNT, AUTOMATED 163 10^3/uL (150-450); RED BLOOD COUNT 4.24 10^6/uL (4.30-6.10); WHITE BLOOD COUNT 7.3 10^3/uL (4.0-10.0)
[2020-03-20 06:28] LABS: BLOOD UREA NITROGEN 17 MG/DL (7-18); CALCIUM LEVEL 8.1 MG/DL (8.8-10.2); CARBON DIOXIDE LEVEL 30 MEQ/L (21-32); CHLORIDE LEVEL 107 MEQ/L (98-107); CREATININE FOR GFR 0.84 MG/DL (0.70-1.30); GLOMERULAR FILTRATION RATE > 60.0 (>49); GLUCOSE, FASTING 85 MG/DL (70-100); MAGNESIUM LEVEL 2.2 MG/DL (1.8-2.4); POTASSIUM SERUM 4.1 MEQ/L (3.5-5.1); SODIUM LEVEL 141 MEQ/L (136-145)
[2020-03-20] MEDS: GABAPENTIN 100 MG CAP PO SCH ×3 (08:41→20:04)
[2020-03-20] MEDS: LORATADINE 10 MG TAB PO SCH (08:41)
[2020-03-20] MEDS: DULoxetine 30 MG CAP (CYMBALTA) PO SCH (08:41)
[2020-03-20] MEDS: FERROUS GLUCONATE 324 MG TAB PO SCH ×2 (08:41→20:05)
[2020-03-20] MEDS: FUROSEMIDE 40 MG TAB PO SCH (08:41)
[2020-03-20] MEDS: DOCUSATE SODIUM 100 MG CAP PO SCH ×2 (08:41→20:05)
[2020-03-20] MEDS: LITHIUM CARBONATE 300 MG CAP PO SCH ×2 (08:41→20:05)
--- NOTE | 2020-03-20 10:37 | IPNPDOC ---
Text Note Date of Service The patient was seen on 03/20/20. NOTE Subjective: No any acute events overnight. Patient stated that his ribs pain significantly subsided Objective: GENERAL APPEARANCE: Patient severe distress, diaphoretic HEENT: no scleral icterus, no JVD, EOMI CARDIOVASCULAR: S1S2, tachycardic LUNGS: Diminished lung sounds bilaterally ABDOMEN: soft & not tender w palpitation MUSCULOSKELETAL: no cyanosis, no swelling, tenderness over upper back area T1-6 on the left side. Severe tenderness over left ribs 5-7 INTEGUMENT: no generalized palor NEUROLOGICAL: cranial nerve function from 2-12 intact intact, follows commands, speech not dysarthric Patient is 64 m PMH of morbid obesity s/p gastric bypass surgery, PTSD/ Major Depression/ Suicidal attempts int the past , hypertension, PATTY on CPAP, COPD/ Emphysema, Moderate pulmonary hypertension, history of Pulmonary embolism, GERD, thyroid cancer s/p surgery now with hypothyroidism, left knee pain presenting to the hospital after mechanical fall. Patient stated that he fall downstairs at 1 AM. In ER patient was found to have on the chest x-ray nondisplaced 5, 6 and 7 ribs fractures nondisplaced. Deep sulcus dependent atelectatic change or patchy infiltrates without effusion. There is compressive atelectasis adjacent to the diaphragms with slight elevati on of the left diaphragm as on previous studies. Patient stated that he has been having trouble with breathing because of pain. Problems (1) Multiple fractures of ribs, left side, initial encounter for closed fracture I intensified pain management: increase the dose of morphine, added ketorolac, added gabapentin Continuous pulse oximetry Heating pads over upper thoracic back area Continue epidural anesthesia. Will start to titrate down Incentive spirometer PT/Ot (2) Hypothyroidism Continue levothyroxine (3) COPD (chronic obstructive pulmonary disease) Not in acute exacerbation Continue inhalers (4) Pulmonary embolism Eliquis on hold due to epidural anesthesia VS,Fishbone, I+O VS, Fishbone, I+O Laboratory Tests 03/20/20 05:47 Vital Signs Date Time Temp Pulse Resp B/P (MAP) Pulse Ox O2 Delivery O2 Flow Rate FiO2 03/20/20 06:00 98.6 71 14 100/58 (72) 98 Room Air 03/18/20 14:55 2.0 I&O- Last 24 Hours up to 6 AM 03/20/20 05:59 Intake Total 1860 ml Output Total 0 ml Balance 1860 ml CRYSTAL BLACKWOOD DO Mar 20, 2020 10:37
[2020-03-20 14:00] VITALS: BP_SYST 124; BP_SYST 136; BP_DIAS 64; BP_DIAS 75
[2020-03-20] MEDS: FENTANYL/BUPIVACAINE/NACL BAG 250 ML EPIDURAL SCH (15:38)
[2020-03-20 22:00] VITALS: BP 127/80
[2020-03-21 01:31] VITALS: O2SAT 97
[2020-03-21] MEDS: PERCOCET 5MG/325MG TAB PO PRN (03:25)
[2020-03-21 06:00] VITALS: BP 127/74
[2020-03-21] MEDS: LEVOTHYROXINE 150MCG TABLET (0.15MG) PO SCH (06:01)
[2020-03-21] MEDS: LEVOTHYROXINE 100MCG TABLET (0.1MG) PO SCH (06:01)
[2020-03-21 07:24] LABS: HEMATOCRIT 39.4 % (42.0-52.0); HEMOGLOBIN 12.7 g/dl (13.5-17.5); MEAN CORPUSCULAR HEMOGLOBIN 30.8 pg (27.0-33.0); MEAN CORPUSCULAR HGB CONC 32.2 g/dl (32.0-36.5); MEAN CORPUSCULAR VOLUME 95.6 fl (80.0-96.0); PLATELET COUNT, AUTOMATED 172 10^3/uL (150-450); RED BLOOD COUNT 4.12 10^6/uL (4.30-6.10); WHITE BLOOD COUNT 7.4 10^3/uL (4.0-10.0)
[2020-03-21 07:54] LABS: BLOOD UREA NITROGEN 16 MG/DL (7-18); CALCIUM LEVEL 8.2 MG/DL (8.8-10.2); CARBON DIOXIDE LEVEL 30 MEQ/L (21-32); CHLORIDE LEVEL 109 MEQ/L (98-107); CREATININE FOR GFR 0.72 MG/DL (0.70-1.30); GLOMERULAR FILTRATION RATE > 60.0 (>49); GLUCOSE, FASTING 82 MG/DL (70-100); MAGNESIUM LEVEL 2.3 MG/DL (1.8-2.4); SODIUM LEVEL 143 MEQ/L (136-145)
--- NOTE | 2020-03-21 09:26 | IPNPDOC ---
Text Note Date of Service The patient was seen on 03/21/20. NOTE Subjective: No any acute events overnight. Patient stated that his left sided chest pain 2 out of 10 Objective: GENERAL APPEARANCE: Patient severe distress, diaphoretic HEENT: no scleral icterus, no JVD, EOMI CARDIOVASCULAR: S1S2, tachycardic LUNGS: Diminished lung sounds bilaterally ABDOMEN: soft & not tender w palpitation MUSCULOSKELETAL: no cyanosis, no swelling, tenderness over upper back area T1-6 on the left side. Severe tenderness over left ribs 5-7 INTEGUMENT: no generalized palor NEUROLOGICAL: cranial nerve function from 2-12 intact intact, follows commands, speech not dysarthric Patient is 64 m PMH of morbid obesity s/p gastric bypass surgery, PTSD/ Major Depression/ Suicidal attempts int the past , hypertension, PATTY on CPAP, COPD/ Emphysema, Moderate pulmonary hypertension, history of Pulmonary embolism, GERD, thyroid cancer s/p surgery now with hypothyroidism, left knee pain presenting to the hospital after mechanical fall. Patient stated that he fall downstairs at 1 AM. In ER patient was found to have on the chest x-ray nondisplaced 5, 6 and 7 r ibs fractures nondisplaced. Deep sulcus dependent atelectatic change or patchy infiltrates without effusion. There is compressive atelectasis adjacent to the diaphragms with slight elevation of the left diaphragm as on previous studies. Patient stated that he has been having trouble with breathing because of pain. Problems (1) Multiple fractures of ribs, left side, initial encounter for closed fracture I intensified pain management: increase the dose of morphine, added ketorolac, added gabapentin Continuous pulse oximetry Continue epidural anesthesia, continued to titrate down Incentive spirometer PT/Ot (2) Hypothyroidism Continue levothyroxine (3) COPD (chronic obstructive pulmonary disease) Not in acute exacerbation Continue inhalers (4) Pulmonary embolism Eliquis on hold due to epidural anesthesia VS,Fishbone, I+O VS, Fishbone, I+O Laboratory Tests 03/21/20 06:06 Vital Signs Date Time Temp Pulse Resp B/P (MAP) Pulse Ox O2 Delivery O2 Flow Rate FiO2 03/21/20 06:00 99.2 63 14 127/74 (91) 97 NIPPV (BIPAP/CPAP) 2.0 I&O- Last 24 Hours up to 6 AM 03/21/20 06:00 Intake Total 264 ml Output Total 0 ml Balance 264 ml CRYSTAL BLACKWOOD DO Mar 21, 2020 09:26
[2020-03-21] MEDS: LITHIUM CARBONATE 300 MG CAP PO SCH ×2 (09:36→20:15)
[2020-03-21] MEDS: LORATADINE 10 MG TAB PO SCH (09:36)
[2020-03-21] MEDS: DULoxetine 30 MG CAP (CYMBALTA) PO SCH (09:36)
[2020-03-21] MEDS: DOCUSATE SODIUM 100 MG CAP PO SCH ×2 (09:36→20:15)
[2020-03-21] MEDS: GABAPENTIN 100 MG CAP PO SCH ×3 (09:37→20:15)
[2020-03-21] MEDS: FUROSEMIDE 40 MG TAB PO SCH (09:37)
[2020-03-21] MEDS: FERROUS GLUCONATE 324 MG TAB PO SCH ×2 (09:37→20:15)
[2020-03-21 13:55] VITALS: O2SAT 90
[2020-03-21 14:00] VITALS: BP 103/60
[2020-03-21] MEDS: FENTANYL/BUPIVACAINE/NACL BAG 250 ML EPIDURAL SCH (16:01)
[2020-03-21] MEDS: tiZANidine 4 MG TAB PO PRN (20:15)
[2020-03-21 22:00] VITALS: BP 118/75
[2020-03-21 22:41] VITALS: O2SAT 94
[2020-03-22] MEDS: LEVOTHYROXINE 150MCG TABLET (0.15MG) PO SCH (05:51)
[2020-03-22] MEDS: LEVOTHYROXINE 100MCG TABLET (0.1MG) PO SCH (05:52)
[2020-03-22 06:00] VITALS: BP_SYST 114; BP_SYST 125; BP_DIAS 58; BP_DIAS 78
[2020-03-22] MEDS ORDERED: PERCOCET 5MG/325MG TAB PO PRN (06:00)
[2020-03-22 06:55] LABS: HEMATOCRIT 39.1 % (42.0-52.0); HEMOGLOBIN 12.9 g/dl (13.5-17.5); MEAN CORPUSCULAR HEMOGLOBIN 31.5 pg (27.0-33.0); MEAN CORPUSCULAR VOLUME 95.6 fl (80.0-96.0); PLATELET COUNT, AUTOMATED 182 10^3/uL (150-450); RED BLOOD COUNT 4.09 10^6/uL (4.30-6.10); WHITE BLOOD COUNT 7.6 10^3/uL (4.0-10.0)
[2020-03-22 07:26] LABS: BLOOD UREA NITROGEN 15 MG/DL (7-18); CALCIUM LEVEL 8.2 MG/DL (8.8-10.2); CARBON DIOXIDE LEVEL 30 MEQ/L (21-32); CHLORIDE LEVEL 108 MEQ/L (98-107); CREATININE FOR GFR 0.75 MG/DL (0.70-1.30); GLOMERULAR FILTRATION RATE > 60.0 (>49); GLUCOSE, FASTING 83 MG/DL (70-100); MAGNESIUM LEVEL 2.3 MG/DL (1.8-2.4); POTASSIUM SERUM 3.9 MEQ/L (3.5-5.1); SODIUM LEVEL 143 MEQ/L (136-145)
[2020-03-22] MEDS: PERCOCET 5MG/325MG TAB PO PRN (07:37)
[2020-03-22] MEDS: DOCUSATE SODIUM 100 MG CAP PO SCH ×2 (08:12→20:39)
[2020-03-22] MEDS: DULoxetine 30 MG CAP (CYMBALTA) PO SCH (08:12)
[2020-03-22] MEDS: LORATADINE 10 MG TAB PO SCH (08:12)
[2020-03-22] MEDS: GABAPENTIN 100 MG CAP PO SCH ×3 (08:13→20:39)
[2020-03-22] MEDS: FUROSEMIDE 40 MG TAB PO SCH (08:13)
[2020-03-22] MEDS: FERROUS GLUCONATE 324 MG TAB PO SCH ×2 (08:13→20:39)
[2020-03-22] MEDS: LITHIUM CARBONATE 300 MG CAP PO SCH ×2 (08:13→20:40)
[2020-03-22 09:43] VITALS: O2SAT 96
[2020-03-22] MEDS ORDERED: FENTANYL/BUPIVACAINE/NACL BAG 250 ML EPIDURAL SCH ×2 (10:00→16:00)
[2020-03-22 14:00] VITALS: BP 118/75
--- NOTE | 2020-03-22 15:58 | IPNPDOC ---
Text Note Date of Service The patient was seen on 03/22/20. NOTE Subjective: No any acute events overnight. Chest pain Controlled. Epidural dose was increased by anesthesia this morning. However irma shut off the epidural by himself at 2 pm . He reported that his did not want him to have it anymore. Will start weaning it. Objective: VITALS: As below GENERAL APPEARANCE: comfortable, laying down in bed. HEENT: no scleral icterus, Moist mucous membranes Neck: no JVD, CARDIOVASCULAR: S1S2, regular, normal rate, no rub/ murmur or gallop LUNGS: Diminished lung sounds bilaterally at the bases, no wheezing or ronchi. ABDOMEN: soft & not tender w palpitation, normal bowel sounds MUSCULOSKELETAL: no cyanosis, no swelling, tenderness over upper back area T1-6 on the left side. Severe tenderness over left ribs 5-7 EXTREMITIES: No edema. NEUROLOGICAL: cranial nerve function from 2-12 intact intact, speech not dysarthric, no focal neurodeficits. Labs and Radiology : reviewed Assessment and Plan: Patient is 64 m PMH of morbid obesity s/p gastric bypass surgery, PTSD/ Major Depression/ Suicidal attempts int the past , hypertension, PATTY on CPAP, COPD/ Emphysema, Moderate pulmonary hypertension, history of Pulmonary embolism, GERD, thyroid cancer s/p surgery now with hypothyroidism, left knee pain presented to the hospital after mechanical fall at night. In ER patient was found to have nondisplaced 5, 6 and 7 ribs fractures on the left. Pain is controlled with epidural anesthesia Multiple fractures of ribs, left side s/p mechanical fall Continue epidural anesthesia, continued to titrate down Continuous pulse oximetry Additional pain control with percocet, gabapentin, tizanidine, tramadol Incentive spirometer PT/Ot H/o thyroid cancer s/p surgery now with hypothyroidism Continue levothyroxine COPD (chronic obstructive pulmonary disease)/ Moderate pulmonary hypertension/Current Smoker Not in acute exacerbation Continue inhalers Smoking cessation discussed Pulmonary embolism Eliquis on hold due to epidural anesthesia Morbid obesity s/p gastric bypass surgery in 2008 continue supplements PTSD/ Major Depression/ Suicidal attempts int the past/ Bipolar on [place], cymbalta Hypertension Lasix. PATTY on CPAP GERD/Arango's esophagus PPI HEARING LOSS IRON DEF ANEMIA IRon VIT D DEF OSTEOPENIA /OA. VS,Fishbone, I+O VS, Fishbone, I+O Laboratory Tests 03/21/20 06:06 Vital Signs Date Time Temp Pulse Resp B/P (MAP) Pulse Ox O2 Delivery O2 Flow Rate FiO2 03/21/20 22:41 94 Room Air 03/21/20 22:00 99.4 81 18 118/75 (89) 03/21/20 06:00 2.0 I&O- Last 24 Hours up to 6 AM 03/22/20 07:00 Intake Total 522 ml Output Total 0 ml Balance 522 ml FAYE CALLE MD Mar 22, 2020 06:02
[2020-03-22] MEDS: tiZANidine 4 MG TAB PO SCH ×2 (16:14→20:40)
[2020-03-22] MEDS: traMADol 50 MG TAB PO SCH ×2 (16:15→20:40)
[2020-03-22 22:00] VITALS: BP 129/77
[2020-03-23] MEDS: LEVOTHYROXINE 150MCG TABLET (0.15MG) PO SCH (05:45)
[2020-03-23] MEDS: LEVOTHYROXINE 100MCG TABLET (0.1MG) PO SCH (05:45)
[2020-03-23 06:00] VITALS: BP 108/65
[2020-03-23 06:06] LABS: HEMATOCRIT 38.8 % (42.0-52.0); HEMOGLOBIN 12.8 g/dl (13.5-17.5); MEAN CORPUSCULAR HEMOGLOBIN 31.4 pg (27.0-33.0); MEAN CORPUSCULAR VOLUME 95.1 fl (80.0-96.0); PLATELET COUNT, AUTOMATED 196 10^3/uL (150-450); RED BLOOD COUNT 4.08 10^6/uL (4.30-6.10); WHITE BLOOD COUNT 7.9 10^3/uL (4.0-10.0)
[2020-03-23 06:30] LABS: BLOOD UREA NITROGEN 17 MG/DL (7-18); CALCIUM LEVEL 8.3 MG/DL (8.8-10.2); CARBON DIOXIDE LEVEL 30 MEQ/L (21-32); CHLORIDE LEVEL 108 MEQ/L (98-107); CREATININE FOR GFR 0.81 MG/DL (0.70-1.30); GLOMERULAR FILTRATION RATE > 60.0 (>49); GLUCOSE, FASTING 85 MG/DL (70-100); MAGNESIUM LEVEL 2.3 MG/DL (1.8-2.4); POTASSIUM SERUM 3.9 MEQ/L (3.5-5.1); SODIUM LEVEL 143 MEQ/L (136-145)
[2020-03-23] MEDS: DULoxetine 30 MG CAP (CYMBALTA) PO SCH (07:46)
[2020-03-23] MEDS: tiZANidine 4 MG TAB PO SCH ×3 (07:47→20:22)
[2020-03-23] MEDS: traMADol 50 MG TAB PO SCH ×3 (07:47→20:24)
[2020-03-23] MEDS: GABAPENTIN 100 MG CAP PO SCH ×3 (07:47→20:22)
[2020-03-23] MEDS: DOCUSATE SODIUM 100 MG CAP PO SCH ×2 (07:48→20:23)
[2020-03-23] MEDS: FERROUS GLUCONATE 324 MG TAB PO SCH ×2 (07:48→20:22)
[2020-03-23] MEDS: LORATADINE 10 MG TAB PO SCH (07:48)
[2020-03-23] MEDS: FUROSEMIDE 40 MG TAB PO SCH (07:48)
[2020-03-23] MEDS: PERCOCET 5MG/325MG TAB PO PRN (10:34)
[2020-03-23] MEDS: LITHIUM CARBONATE 300 MG CAP PO SCH ×2 (10:34→20:23)
--- NOTE | 2020-03-23 11:19 | IPNPDOC ---
Text Note Date of Service The patient was seen on 03/23/20. NOTE Subjective: No any acute events overnight. Chest pain Controlled. Epidural will be discontinued today. Objective: VITALS: As below GENERAL APPEARANCE: comfortable, laying down in bed. HEENT: no scleral icterus, Moist mucous membranes Neck: no JVD, CARDIOVASCULAR: S1S2, regular, normal rate, no rub/ murmur or gallop LUNGS: Diminished lung sounds bilaterally at the bases, no wheezing or [place]. ABDOMEN: soft & not tender w palpitation, normal bowel sounds MUSCULOSKELETAL: no cyanosis, no swelling, tenderness over upper back area T1-6 on the left side. Severe tenderness over left ribs 5-7 EXTREMITIES: No edema. NEUROLOGICAL: cranial nerve function from 2-12 intact intact, speech not dysarthric, no focal Neurodeficits. Labs and Radiology : reviewed Assessment and Plan: Patient is 64 m PMH of morbid obesity s/p gastric bypass surgery, PTSD/ Major Depression/ Suicidal attempts int the past , hypertension, PATTY on CPAP, COPD/ Emphysema, Moderate pulmonary hypertension, history of Pulmonary embolism, GERD, thyroid cancer s/p surgery now with hypothyroidism, left knee pain presented to the hospital after mechanical fall at night. In ER patient was found to have nondisplaced 5, 6 and 7 ribs fractures on the left. Pain is controlled with epidural anesthesia Multiple fractures of ribs, left side s/p mechanical fall Continue epidural anesthesia, continued to titrate down Continuous pulse oximetry Additional pain control with percocet, gabapentin, tizanidine, tramadol Incentive spirometer PT/OT H/o thyroid cancer s/p surgery now with hypothyroidism Continue levothyroxine COPD (chronic obstructive pulmonary disease)/ Moderate pulmonary hypertension/Current Smoker Not in acute exacerbation Continue inhalers Smoking cessation discussed Pulmonary embolism Eliquis on hold due to epidural anesthesia Morbid obesity s/p gastric bypass surgery in 2008 continue supplements PTSD/ Major Depression/ Suicidal attempts int the past/ Bipolar on [place], cymbalta Hypertension Lasix. PATTY on CPAP GERD/Arango's esophagus PPI HEARING LOSS IRON DEF ANEMIA Iron VIT D DEF OSTEOPENIA /OA. VS,Fishbone, I+O VS, Fishbone, I+O Laboratory Tests 03/23/20 05:47 Vital Signs Date Time Temp Pulse Resp B/P (MAP) Pulse Ox O2 Delivery O2 Flow Rate FiO2 03/23/20 10:34 16 Room Air 03/23/20 06:00 96.7 66 108/65 (79) 97 03/22/20 06:00 2.0 I&O- Last 24 Hours up to 6 AM 03/23/20 05:59 Intake Total 1212 ml Output Total 0 ml Balance 1212 ml FAYE CALLE MD Mar 23, 2020 11:19
[2020-03-23 22:00] VITALS: BP 137/80
[2020-03-24] MEDS: LEVOTHYROXINE 100MCG TABLET (0.1MG) PO SCH (05:30)
[2020-03-24] MEDS: LEVOTHYROXINE 150MCG TABLET (0.15MG) PO SCH (05:30)
[2020-03-24] MEDS: PERCOCET 5MG/325MG TAB PO PRN (05:35)
[2020-03-24 06:00] VITALS: BP 114/70
[2020-03-24 06:01] LABS: HEMATOCRIT 38.1 % (42.0-52.0); HEMOGLOBIN 12.2 g/dl (13.5-17.5); MEAN CORPUSCULAR HEMOGLOBIN 30.3 pg (27.0-33.0); MEAN CORPUSCULAR VOLUME 94.5 fl (80.0-96.0); PLATELET COUNT, AUTOMATED 211 10^3/uL (150-450); RED BLOOD COUNT 4.03 10^6/uL (4.30-6.10); WHITE BLOOD COUNT 7.4 10^3/uL (4.0-10.0)
[2020-03-24 06:48] LABS: BLOOD UREA NITROGEN 16 MG/DL (7-18); CALCIUM LEVEL 8.3 MG/DL (8.8-10.2); CARBON DIOXIDE LEVEL 28 MEQ/L (21-32); CHLORIDE LEVEL 109 MEQ/L (98-107); CREATININE FOR GFR 0.73 MG/DL (0.70-1.30); GLOMERULAR FILTRATION RATE > 60.0 (>49); GLUCOSE, FASTING 88 MG/DL (70-100); MAGNESIUM LEVEL 2.2 MG/DL (1.8-2.4); POTASSIUM SERUM 3.7 MEQ/L (3.5-5.1); SODIUM LEVEL 140 MEQ/L (136-145)
[2020-03-24] MEDS: FUROSEMIDE 40 MG TAB PO SCH (07:55)
[2020-03-24] MEDS: FERROUS GLUCONATE 324 MG TAB PO SCH (07:56)
[2020-03-24] MEDS: DOCUSATE SODIUM 100 MG CAP PO SCH (07:56)
[2020-03-24] MEDS: GABAPENTIN 100 MG CAP PO SCH (07:57)
[2020-03-24] MEDS: traMADol 50 MG TAB PO SCH (07:57)
[2020-03-24] MEDS: LORATADINE 10 MG TAB PO SCH (07:57)
[2020-03-24] MEDS: LITHIUM CARBONATE 300 MG CAP PO SCH (07:57)
[2020-03-24] MEDS: DULoxetine 30 MG CAP (CYMBALTA) PO SCH (07:57)
[2020-03-24] MEDS: tiZANidine 4 MG TAB PO SCH (07:58)
[2020-03-24] MEDS ORDERED: ACET1TAB55 PO (08:01)
[2020-03-24] MEDS ORDERED: TIZA4TAB4 PO (08:01)
[2020-03-24] MEDS ORDERED: PERCOCET PO (08:01)
[2020-03-24] MEDS ORDERED: IBUP-1022 PO (08:01)
--- NOTE | 2020-03-24 10:03 | REP ---
INDICATION: rib fractures COMPARISON: 03/14/2020. TECHNIQUE: PA/Lateral FINDINGS: Lungs: There are patchy bibasilar opacities representing atelectasis and or infiltrate. There is elevation of left hemidiaphragm. Heart: Normal in size. Mediastinum: There is calcification and tortuosity of the thoracic aorta. Pleural angles: I cannot exclude a very small left pleural effusion.. Bones and soft tissues: There are fractures of the left 5th through 7th ribs laterally. IMPRESSION: Patchy bibasilar atelectasis/infiltrate. Fractures of left 5th through 7th ribs laterally. <Electronically signed by Mark Hurst > 03/24/20 [id number]
--- NOTE | 2020-03-24 12:54 | DS.PDOC ---
Discharge Summary General Date of Admission Mar 14, 2020 at 13:01 Date of Discharge 03/24/20 Discharge Summary PROCEDURES PERFORMED DURING STAY: Epidural Anaesthesia. DISCHARGE DIAGNOSES: Left 5th, 6th, 7th rib fractures s/p mechanical fall SECONDARY DIAGNOSIS: Morbid obesity s/p gastric bypass surgery, PTSD/ Major Depression/ Suicidal attempts int the past , Bipolar Hypertension, PATTY on CPAP, COPD/ Emphysema, Moderate pulmonary hypertension, History of Pulmonary embolism, GERD, Arango's esophagus Thyroid cancer s/p surgery now with hypothyroidism, HEARING LOSS IRON DEF ANEMIA VIT D DEF OSTEOPENIA /OA. COMPLICATIONS/CHIEF COMPLAINT: Multiple Closed Rib Fractures, L Side. HOSPITAL COURSE: Patient is 64 m PMH of morbid obesity s/p gastric bypass surgery, PTSD/ Major Depression/ Suicidal attempts int the past , hypertension, PATTY on CPAP, COPD/ Emphysema, Moderate pulmonary hypertension, history of Pulmonary embolism, GERD, thyroid cancer s/p surgery now with hypothyroidism, left knee pain presented to the hospital after mechanical fall at night. In ER patient was found to have nondisplaced 5, 6 and 7 ribs fractures on the left. Multiple fractures of ribs, left 5th, 6th, 7th side s/p mechanical fall s/p epidural anesthesia Now pain control with percocet, gabapentin, tizanidine, Ibuprofen CXR on 03/24/20 with no pneumothorax , no significant pleural effusion. Some atelectasis at the left base, and rib fractures as prior. Incentive spirometer H/o thyroid cancer s/p surgery now with hypothyroidism Continue levothyroxine COPD (chronic obstructive pulmonary disease)/ Moderate pulmonary hypertension/Current Smoker Not in acute exacerbation Continue inhalers Smoking cessation discussed Pulmonary embolism Kaitlin restarted Morbid obesity s/p gastric bypass surgery in 2008 continue supplements PTSD/ Major Depression/ Suicidal attempts int the past/ Bipolar on Osprey, cymbalta Hypertension Lasix. PATTY on CPAP GERD/Arango's esophagus PPI HEARING LOSS IRON DEF ANEMIA Iron VIT D DEF OSTEOPENIA /OA. DISCHARGE MEDICATIONS: Please see below. ALLERGIES: Please see below. PHYSICAL EXAMINATION ON DISCHARGE: VITAL SIGNS: Please see below. GENERAL APPEARANCE: comfortable, sitting up in chair. HEENT: no scleral icterus, Moist mucous membranes Neck: no JVD, CARDIOVASCULAR: S1S2, regular, normal rate, no rub/ murmur or gallop LUNGS: Diminished lung sounds bilaterally at the bases, no wheezing or Ronchi. Few crackles at the left base. ABDOMEN: soft & not tender w palpitation, normal bowel sounds MUSCULOSKELETAL: no cyanosis, no swelling, tenderness over upper back area T1-6 on the left side. Severe tenderness over left ribs 5-7 EXTREMITIES: No edema. NEUROLOGICAL: cranial nerve function from 2-12 intact intact, speech not dysarthric, no focal Neurodeficits. LABORATORY DATA: Please see below. ACTIVITY: [As tolerated]. DIET: As tolerated DISPOSITION: 01 Home, Self-Care. DISCHARGE INSTRUCTIONS: PMD in 1 week DISCHARGE CONDITION: [Stable]. TIME SPENT ON DISCHARGE: 35 minutes. Vital Signs/I&Os Vital Signs Date Time Temp Pulse Resp B/P (MAP) Pulse Ox O2 Delivery O2 Flow Rate FiO2 03/24/20 07:57 16 97 Room Air 03/24/20 06:00 97.1 67 114/70 (85) 03/22/20 06:00 2.0 I&O- Last 24 Hours up to 6 AM 03/24/20 06:00 Intake Total 2430 ml Balance 2430 ml Laboratory Data Labs 24H Laboratory Tests 2 03/24/20 05:42: Nucleated Red Blood Cells % (auto) 0.0, Anion Gap 3L, Glomerular Filtration Rate > 60.0, Calcium Level 8.3L, Magnesium Level 2.2 CBC/BMP Laboratory Tests 03/24/20 05:42 Discharge Medications Scheduled Apixaban (Eliquis) 2.5 Mg Tablet, 2.5 MG PO BID, (Reported) Cholecalciferol (Vitamin D3) (Vitamin D3) 1,000 Unit Tablet, 2,000 UNITS PO DAILY, (Reported) Docusate Sodium (Colace) 100 Mg Cap, 200 MG PO BID, (Reported) Duloxetine Hcl (Duloxetine HCl) 60 Mg Capsule.dr, 120 MG PO DAILY for DEPRESSION, (Reported) Ferrous Gluconate (Ferrous Gluconate) 324 Mg Tab, 324 MG PO BID, (Reported) Furosemide (Furosemide) 40 Mg Tab, 40 MG PO DAILY, (Reported) Levothyroxine Sodium (Synthroid) 150 Mcg Tab, 150 MCG PO DAILY, (Reported) TAKES WITH 100MCG FOR 250MCG TOTAL Levothyroxine Sodium (Synthroid) 100 Mcg Tablet, 100 MCG PO DAILY, (Reported) TAKES WITH 150MCG FOR 250MCG TOTAL Osprey Carbonate (Osprey Carbonate) 300 Mg Capsule, 300 MG PO BID, (Reported) Loratadine (Claritin) 10 Mg Tablet, 10 MG PO DAILY, (Reported) Multivitamins (I-Shabbir Tablet) 1 Each Tablet, 1 TAB PO BID, (Reported) Vitamin B Complex/Folic Acid (B-Complex Tablet) 1 Tab Tab, 1 TAB PO DAILY, (Reported) Scheduled PRN Acetaminophen (Acetaminophen) 325 Mg Tablet, 650 MG PO Q4H PRN for MILD PAIN (PS 1-4) Diclofenac Sodium (Diclofenac Sodium) 1% 100GM Gel..gram., 2 GM TOP BID PRN for PAIN, (Reported) Apply to area of pain Ibuprofen (Ibuprofen) 600 Mg Tablet, 600 MG PO TIDP PRN for MODERATE PAIN (PS 5- 7) with food Oxycodone/Acetaminophen (Oxycodone-Acetaminophen 5-325) 1 Each Tablet, 1 TAB PO Q4HP PRN for MODERATE/SEVERE PAIN (PS 5-10) Pantoprazole Sodium (Pantoprazole Sodium) 40 Mg Tablet.dr, 40 MG PO DAILY PRN for HEARTBURN, (Reported) Simethicone (Simethicone) 80 Mg Tab.chew, 80 MG PO QID PRN for GAS PAIN, (Reported) Tizanidine HCl (Tizanidine HCl) 4 Mg Tablet, 2 MG PO TIDP PRN for SPASMS Allergies Coded Allergies: ENVIROMENTAL (Unverified Allergy, Unknown, 01/26/15) FAYE CALLE MD Mar 24, 2020 12:54
== END 2020-03-24 11:29 | disposition home or self-care (01) | DRG 184 ==
LOC: M ED 09:10 → M ED INP 13:01 → M MSPAV 18:15
PROVIDERS: ADMIT Internal Medicine; ATTEND Internal Medicine Nephrology
DX: S22.42XA Multiple fractures of ribs, left side, initial encounter for closed fracture (principal); I27.82 Chronic pulmonary embolism; F43.10 Post-traumatic stress disorder, unspecified; E66.01 Morbid (severe) obesity due to excess calories; J43.9 Emphysema, unspecified; E55.9 Vitamin D deficiency, unspecified; K21.9 Gastro-esophageal reflux disease without esophagitis; G47.33 Obstructive sleep apnea (adult) (pediatric); I10 Essential (primary) hypertension; F31.9 Bipolar disorder, unspecified; I27.20 Pulmonary hypertension, unspecified; Z85.850 Personal history of malignant neoplasm of thyroid; K22.70 Barrett's esophagus without dysplasia; Z98.84 Bariatric surgery status; M19.90 Unspecified osteoarthritis, unspecified site; W18.30XA Fall on same level, unspecified, initial encounter; Y92.009 Unspecified place in unspecified non-institutional (private) residence as the place of occurrence of the external cause; Z79.899 Other long term (current) drug therapy; E03.9 Hypothyroidism, unspecified

== ENCOUNTER 2020-05-28 11:50 | Emergency (ER) | payer MEDICARE, OTHER ==
[~2020-05-28 11:50] MED LIST changes: +ACET1TAB55 PO; +D31000TA2 PO; +GABA-282 PO; -GABA-843 PO; +IBUP-1022 PO; +PERCOCET PO; +PRAZ5CAP PO; -SIME40TA PO; +SIME80CH5 PO; +SIME80CH6 PO; -SIME80TA PO; +TIZA4TAB4 PO
--- OUTSIDE RECORDS SUMMARY | 2020-05-28 12:00 | CCD ---
Author Author [facility] Organization [facility] Address Unknown Phone Unavailable Care Team Providers Care Rn Support Services Name Role Phone PAMELA, E TRENA CREDIT REVIEW MANAGER Unavailable Unavailable PAMELA, E TRENA CREDIT REVIEW MANAGER Unavailable Unavailable PAMELA, E TRENA CREDIT REVIEW MANAGER Unavailable Unavailable PAMELA, E TRENA CREDIT REVIEW MANAGER Unavailable Unavailable PAMELA, E TRENA CREDIT REVIEW MANAGER Unavailable Unavailable PAMELA, E TRENA CREDIT REVIEW MANAGER Unavailable Unavailable PAMELA, E TRENA CREDIT REVIEW MANAGER Unavailable Unavailable PAMELA, E TRENA CREDIT REVIEW MANAGER Unavailable Unavailable PAMELA, E TRENA CREDIT REVIEW MANAGER Unavailable Unavailable PAMELA, E TRENA CREDIT REVIEW MANAGER Unavailable Unavailable PAMELA, E TRENA CREDIT REVIEW MANAGER Unavailable Unavailable PAMELA, E TRENA CREDIT REVIEW MANAGER Unavailable Unavailable PAMELA, E TRENA CREDIT REVIEW MANAGER Unavailable Unavailable PAMELA, E TRENA CREDIT REVIEW MANAGER Unavailable Unavailable PAMELA, E TRENA CREDIT REVIEW MANAGER Unavailable Unavailable PAMELA, E TRENA CREDIT REVIEW MANAGER Unavailable Unavailable PAMELA, E TRENA CREDIT REVIEW MANAGER Unavailable Unavailable PAMELA, E TRENA CREDIT REVIEW MANAGER Unavailable Unavailable PAMELA, E TRENA CREDIT REVIEW MANAGER Unavailable Unavailable PAMELA, E TRENA CREDIT REVIEW MANAGER Unavailable Unavailable PAMELA, E TRENA CREDIT REVIEW MANAGER Unavailable Unavailable PAMELA, E TRENA CREDIT REVIEW MANAGER Unavailable Unavailable PAMELA, E TRENA CREDIT REVIEW MANAGER Unavailable Unavailable PAMELA, E TRENA CREDIT REVIEW MANAGER Unavailable Unavailable PAMELA, E TRENA CREDIT REVIEW MANAGER Unavailable Unavailable PAMELA, E TRENA CREDIT REVIEW MANAGER Unavailable Unavailable PAMELA, E TRENA CREDIT REVIEW MANAGER Unavailable Unavailable PAMELA, E TRENA CREDIT REVIEW MANAGER Unavailable Unavailable PAMELA, E TRENA CREDIT REVIEW MANAGER Unavailable Unavailable PAMELA, E TRENA CREDIT REVIEW MANAGER Unavailable Unavailable Pratik Rogers MD Unavailable Unavailable Pratik Rogers MD Unavailable Unavailable Pratik Rogers MD Unavailable Unavailable Pratik Rogers MD Unavailable Unavailable Pratik Rogers MD Unavailable Unavailable Pratik Rogers MD Unavailable Unavailable Pratik Rogers MD Unavailable Unavailable Pratik Rogers MD Unavailable Unavailable Pratik Rogers MD Unavailable Unavailable Pratik Rogers MD Unavailable Unavailable Pratik Rogers MD Unavailable Unavailable Pratik Rogers MD Unavailable Unavailable Mollison, Pratik Jackman MD Unavailable Unavailable Mollison, Pratik Jackman MD Unavailable Unavailable Mollison, Pratik Jackman MD Unavailable Unavailable Mollison, Pratik Jackman MD Unavailable Unavailable Mollison, Pratik Jackman MD Unavailable Unavailable Mollison, Pratik Jackman MD Unavailable Unavailable Mollison, Pratik Jackman MD Unavailable Unavailable Mollison, Pratik Jackman MD Unavailable Unavailable Mollison, Pratik Jackman MD Unavailable Unavailable Mollison, Pratik Jackman MD Unavailable Unavailable Abriss, B Justice WARNER Unavailable Unavailable Abriss, B Justice WARNER Unavailable Unavailable Abriss, B Justice WARNER Unavailable Unavailable Abriss, B Justice MD Unavailable Unavailable Abriss, B Justice MD Unavailable Unavailable Abriss, B Justice MD Unavailable Unavailable Abriss, B Justice MD Unavailable Unavailable Abriss, B Justice MD Unavailable Unavailable Abriss, B Justice MD Unavailable Unavailable Abriss, B Justice MD Unavailable Unavailable Abriss, B Justice MD Unavailable Unavailable Abriss, B Justice MD Unavailable Unavailable Abriss, B Justice MD Unavailable Unavailable Abriss, B Justice MD Unavailable Unavailable Abriss, B Justice MD Unavailable Unavailable Abriss, B Justice MD Unavailable Unavailable Abriss, B Justice WARNER Unavailable Unavailable Abriss, B Justice WARNER Unavailable Unavailable RING, K CHARITY PA Unavailable Unavailable RING, K CHARITY PA Unavailable Unavailable RING, K CHARITY PA Unavailable Unavailable RING, K CHARITY PA Unavailable Unavailable RING, K CHARITY PA Unavailable Unavailable RING, K CHARITY PA Unavailable Unavailable RING, K CHARITY PA Unavailable Unavailable RING, K CHARITY PA Unavailable Unavailable RING, K CHARITY PA Unavailable Unavailable RING, K CHARITY PA Unavailable Unavailable RING, K CHARITY PA Unavailable Unavailable RING, K CHARITY PA Unavailable Unavailable RING, K CHARITY PA Unavailable Unavailable RING, K CHARITY PA Unavailable Unavailable RING, K CHARITY PA Unavailable Unavailable RING, K CHARITY PA Unavailable Unavailable RING, K CHARITY PA Unavailable Unavailable RING, K CHARITY PA Unavailable Unavailable RING, K CHARITY PA Unavailable Unavailable RING, K CHARITY PA Unavailable Unavailable Re-disclosure Warning The records that you are about to access may contain information from federally-assisted alcohol or drug abuse programs. If such information is present, then the following federally mandated warning applies: This information has been disclosed to you from records protected by federal confidentiality rules (42 CFR part 2). The federal rules prohibit you from making any further disclosure of this information unless further disclosure is expressly permitted by the written consent of the person to whom it pertains or as otherwise permitted by 42 CFR part 2. A general authorization for the release of medical or other information is NOT sufficient for this purpose. The Federal rules restrict any use of the information to criminally investigate or prosecute any alcohol or drug abuse patient.The records that you are about to access may contain highly sensitive health information, the redisclosure of which is protected by Article 27-F of the [facility] Public Health law. If you continue you may have access to information: Regarding HIV / AIDS; Provided by facilities licensed or operated by the [facility] Office of Mental Health; or Provided by the [facility] Office for People With Developmental Disabilities. If such information is present, then the following [facility] mandated warning applies: This information has been disclosed to you from confidential records which are protected by state law. State law prohibits you from making any further disclosure of this information without the specific written consent of the person to whom it pertains, or as otherwise permitted by law. Any unauthorized further disclosure in violation of state law may result in a fine or group home sentence or both. A general authorization for the release of medical or other information is NOT sufficient authorization for further disc losure. Allergies and Adverse Reactions Type Description Substance Reaction Status Data Source(s ) Drug Allergy NKDA NKDA MEDENT ([facility], [facility]) Family History Family Member Name Family Member Gender Family Member Status Date o f Status Description Data Source(s) Unknown Unknown Problem MEDENT ([facility], [facility]) Encounters Encounter Providers Location Date Indications Data Source(s ) Outpatient Attender: CHARITY Cruz Primary 01/06/2020 09:45:00 AM EDT MEDENT ([facility], [facility]) Outpatient Attender: CHARITY Cruz Primary 11/27/2019 08:15:00 AM EDT MEDENT ([facility], [facility]) Outpatient Referrer: TRENA SANTIAGO NP 10/13/2019 05:01:00 PM EDT [facility] [place] [address] [address] 10/03/2019 12:00:00 AM EDT eCW1 ([facility]) [facility] [place] [address] [address] 09/23/2019 12:00:00 AM EDT eCW1 ([facility]) [facility] [place] [address] [address] 07/09/2019 12:00:00 AM EST eCW1 ([facility]) Outpatient Attender: Justice Barbosa/Rebecca/Seb/Re indl 06/05/2019 09:15:00 AM EST MEDENT ([facility]) Outpatient Attender: CHARITY Cruz Primary 06/03/2019 03:00:00 PM EST MEDENT ([facility]) Outpatient Referrer: TRENA SANTIAGO CREDIT REVIEW MANAGER 06/03/2019 12:08:00 PM EST [facility] Outpatient Referrer: TRENA SANTIAGO CREDIT REVIEW MANAGER 06/03/2019 12:08:00 PM EST [facility] Outpatient Attender: Gasper Barbosa/Rebecca/Seb/Re indl 05/17/2019 08:40:00 AM EST MEDENT ([facility]) Outpatient Referrer: TRENA SANTIAGO CREDIT REVIEW MANAGER 05/15/2019 02:08:00 PM EST [facility] Rick [address] [place] [address], [place] [address] 04/26/2019 12:00:00 AM EST eCW1 ([facility]) [facility] [address] [place] [address], [place] [address] 04/23/2019 12:00:00 AM EST eCW1 ([facility]) [facility] [address] [place] [address], [place] [address] 04/17/2019 12:00:00 AM EST eCW1 ([facility]) Outpatient Attender: Gasper Barbosa/Rebecca/Seb/Re indl 04/16/2019 01:10:00 PM EST MEDENT ([facility]) [facility] [address] [place] [address], [place] [address] 04/16/2019 12:00:00 AM EST eCW1 ([facility]) Immunizations Vaccine Date Status Description Data Source(s) INFLUENZA VIRUS VACCINE QUADRIVALENT 2019- (6 MOS AN D UP) 01/26/2020 12:00:00 AM EDT completed [facility]ations Medication Brand Name Start Date Product Form Dose Route Admi nistrative Instructions Pharmacy Instructions Status Indications Reaction Description Data Source(s) tizanidine 4 MG Oral Tablet TIZANIDINE HCL 03/24/2020 12:00:00 AM EST tablet 15 TAKE ONE-HALF TABLET BY MOUTH THREE TIMES A DAY NEE DED FOR SPASMS TAKE ONE- HALF TABLET BY MOUTH THREE TIMES A DAY NEEDED FOR SPASMS SOLD: 03/24/2020 [facility] 600 mg 03/24/2020 12:00:00 AM EST tablet 30 TAKE ONE TABLET BY MOUTH THREE TIMES A DAY NEEDED FOR MODERATE PAIN (SCALE 5-7) WITH FOOD TAKE ONE TABLET BY MOUTH THREE TIMES A DAY NEEDED FOR MODERATE PAIN (SCALE 5-7) WITH FOOD SOLD: 03/24/2020 [facility] Acetaminophen 325 MG Oral Tablet ACETAMINOPHEN 03/24/2020 12:0 0:00 AM EST tablet 30 TAKE TWO TABLETS BY MOUTH EVERY 4 HOURS NEEDED FOR MILD PAIN (SCALE 1-4) TAKE TWO TABLETS BY MOUTH EVERY 4 HOURS NEEDED FOR MILD PAIN (SCALE 1-4) SOLD: 03/24/2020 [facility] 5-325 mg 03/24/2020 12:00:00 AM EST tablet 20 TAKE ONE TABLET BY MOUTH EVERY 4 HOURS NEEDED FOR MODERATE/SEVERE PAIN (SCALE 5-10), MAXIMUM DAILY DOSE = 4 TABLETS TAKE ONE TABLET BY MOUTH EVERY 4 HOURS A S NEEDED FOR MODERATE/SEVERE PAIN (SCALE 5-10), MAXIMUM DAILY DOSE = 4 TABLETS SOLD: 03/24/2020 [facility] 0.3-0.1 % 01/17/2020 12:00:00 AM EDT drops,suspension 15 INSTILL 3 TO 4 DROPS IN THE LEFT EAR TWO TIMES A DAY FOR 2 WEEKS WHEN DRAINAGE STARTS INSTILL 3 TO 4 DROPS IN THE LEFT EAR TWO TIMES A DAY FOR 2 WEEKS WHEN DRAINAGE STARTS SOLD: 01/18/2020 [facility] cefdinir 300 MG Oral Capsule Cefdinir 01/06/2020 12:00:00 AM EDT ORAL active MEDENT ([facility]) 300 mg 01/06/2020 12:00:00 AM EDT capsule 20 TAKE ONE CAPSULE BY MOUTH EVERY 12 HOURS FOR 10 DAYS TAKE ONE CAPSULE BY MOUTH EVERY 12 HOURS FOR 10 DAYS S OLD: 01/06/2020 [facility] 100 mg 11/27/2019 12:00:00 AM EDT tablet 20 TAKE ONE TABLET BY MOUTH TWICE A DAY FOR 10 DAYS TAKE ONE TABLET BY MOUTH TWICE A DAY FOR 10 DAYS SOLD: 11/27/2019 [facility] Doxycycline Monohydrate 100 MG Oral Tablet Doxycycline Monoh ydrate 11/27/2019 12:00:00 AM EDT ORAL completed MEDENT ([facility], [facility]) 60 mg 10/11/2019 12:00:00 AM EDT capsule,delayed release (DR/EC) 60 TAKE TWO CAPSULES BY MOUTH EVERY DAY TAKE TWO CAPSULES BY MOUTH EVERY DAY SOLD: 11/21/2019 [facility] 60 mg 10/11/2019 12:00:00 AM EDT capsule,delayed release (DR/EC) 60 TAKE TWO CAPSULES BY MOUTH EVERY DAY TAKE TWO CAPSULES BY MOUTH EVERY DAY SOLD: 12/29/2019 [facility] 60 mg 10/11/2019 12:00:00 AM EDT capsule,delayed release (DR/EC) 60 TAKE TWO CAPSULES BY MOUTH EVERY DAY TAKE TWO CAPSULES BY MOUTH EVERY DAY SOLD: 10/13/2019 [facility] 60 mg 10/11/2019 12:00:00 AM EDT capsule,delayed release (DR/EC) 60 TAKE TWO CAPSULES BY MOUTH EVERY DAY TAKE TWO CAPSULES BY MOUTH EVERY DAY SOLD: 03/29/2020 [facility] 60 mg 10/11/2019 12:00:00 AM EDT capsule,delayed release (DR/EC) 60 TAKE TWO CAPSULES BY MOUTH EVERY DAY TAKE TWO CAPSULES BY MOUTH EVERY DAY SOLD: 02/01/2020 [facility] 60 mg 10/11/2019 12:00:00 AM EDT capsule,delayed release (DR/EC) 60 TAKE TWO CAPSULES BY MOUTH EVERY DAY TAKE TWO CAPSULES BY MOUTH EVERY DAY SOLD: 04/28/2020 [facility] 10 mg 09/24/2019 12:00:00 AM EDT capsule 60 TAKE TWO CAPSULES BY MOUTH AT BEDTIME NEEDED * MAXIMUM DAILY DOSE = 2 TAKE TWO CAPSULES BY MOUTH AT BEDTIME NEEDED * MAXIMUM DAILY DOSE = 2 SOLD: 09/25/2019 [facility] 300 mg 09/03/2019 12:00:00 AM EDT tablet 60 TAKE ONE TABLET BY MOUTH TWICE A DAY TAKE ONE TABLET BY MOUTH TWICE A DAY SOLD: 11/21/2019 [facility] 300 mg 09/03/2019 12:00:00 AM EDT tablet 60 TAKE ONE TABLET BY MOUTH TWICE A DAY TAKE ONE TABLET BY MOUTH TWICE A DAY SOLD: 10/15/2019 [facility] 300 mg 09/03/2019 12:00:00 AM EDT tablet 60 TAKE ONE TABLET BY MOUTH TWICE A DAY TAKE ONE TABLET BY MOUTH TWICE A DAY SOLD: 02/01/2020 [facility] 300 mg 09/03/2019 12:00:00 AM EDT tablet 60 TAKE ONE TABLET BY MOUTH TWICE A DAY TAKE ONE TABLET BY MOUTH TWICE A DAY SOLD: 04/28/2020 [facility] 300 mg 09/03/2019 12:00:00 AM EDT tablet 60 TAKE ONE TABLET BY MOUTH TWICE A DAY TAKE ONE TABLET BY MOUTH TWICE A DAY SOLD: 12/29/2019 [facility] 300 mg 09/03/2019 12:00:00 AM EDT tablet 60 TAKE ONE TABLET BY MOUTH TWICE A DAY TAKE ONE TABLET BY MOUTH TWICE A DAY SOLD: 09/05/2019 [facility] quetiapine 100 MG Oral Tablet QUETIAPINE FUMARATE 08/03/2019 12: 00:00 AM EDT tablet 30 TAKE ONE TABLET BY MOUTH AT BEDT ADELFO TAKE ONE TABLET BY MOUTH AT BEDTIME SOLD: 08/03/2019 [facility] quetiapine 100 MG Oral Tablet QUETIAPINE FUMARATE 08/03/2019 12: 00:00 AM EDT tablet 30 TAKE ONE TABLET BY MOUTH AT BEDT ADELFO TAKE ONE TABLET BY MOUTH AT BEDTIME SOLD: 09/18/2019 [facility] 10 mg 08/02/2019 12:00:00 AM EDT capsule 60 TAKE TWO CAPSULES BY MOUTH AT BEDTIME NEEDED, MAXIMUM DAILY DOSE = 2 CAPSULES TAKE TWO CAPSULES BY MOUTH AT BEDTIME NEEDED, MAXIMUM DAILY DOSE = 2 CAPSULES SOLD: 08/03/2019 [facility] 90 mcg/actuation 06/03/2019 12:00:00 AM EST HFA aerosol inha ler 8 INHALE 2 PUFFS BY MOUTH EVERY 4-6 HOURS NEEDED FOR COUGHING AND WHEEZING INHALE 2 PUFFS BY MOUTH EVERY 4-6 HOURS NEEDED FOR COUGHING AND WHEEZING SOLD: 06/03/2019 [facility] 750 mg 06/03/2019 12:00:00 AM EST tablet 5 TAKE ONE TABLET BY MOUTH ONCE A DAY FOR 5 DAYS TAKE ONE TABLET BY MOUTH ONCE A DAY FOR 5 DAYS SOLD: 020 [facility] 2.5 mg /3 mL (0.083 %) 06/03/2019 12:00:00 AM EST solu tion for nebulization 75 INHALE 1 VIAL VIA NEBULIZER EVERY 4-6 HOURS NEEDED FOR COUGHING AND WHEEZING INHALE 1 VIAL VIA NEBULIZER EVERY 4-6 HO URS NEEDED FOR COUGHING AND WHEEZING SOLD: 06/03/2019 [facility] Levofloxacin 750 MG Oral Tablet [Levaquin] Levaquin 06/03 12:00:00 AM EST ORAL completed MEDENT ([facility], [facility]) 200 ACTUAT Albuterol 0.09 MG/ACTUAT Metered Dose Inhaler [Pr oAir] Proair HFA 06/03/2019 12:00:00 AM EST ORAL completed MEDENT ([facility]) Nebulizer 06/03/2019 12:00:00 AM EST complete d MEDENT ([facility], [facility]) Albuterol 0.83 MG/ML Inhalant Solution Albuterol Sulfate 0 06/03/2019 12:00:00 AM EST ORAL completed MEDENT ([facility]) 5 mg 05/08/2019 12:00:00 AM EST capsule 30 TAKE ONE CAPSULE BY MOUTH AT BEDTIME TAKE ONE CAPSULE BY MOUTH AT BEDTIME SOLD: 05/12/2019 [facility] 5 mg 05/08/2019 12:00:00 AM EST capsule 30 TAKE ONE CAPSULE BY MOUTH AT BEDTIME TAKE ONE CAPSULE BY MOUTH AT BEDTIME SOLD: 07/20/2019 [facility] 5 mg 05/08/2019 12:00:00 AM EST capsule 30 TAKE ONE CAPSULE BY MOUTH AT BEDTIME TAKE ONE CAPSULE BY MOUTH AT BEDTIME SOLD: 09/18/2019 [facility] 5 mg 05/08/2019 12:00:00 AM EST capsule 30 TAKE ONE CAPSULE BY MOUTH AT BEDTIME TAKE ONE CAPSULE BY MOUTH AT BEDTIME SOLD: 06/08/2019 [facility] quetiapine 50 MG Oral Tablet QUETIAPINE FUMARATE 05/07/2019 12:0 0:00 AM EST tablet 30 TAKE ONE TABLET BY MOUTH AT BEDT ADELFO TAKE ONE TABLET BY MOUTH AT BEDTIME SOLD: 06/06/2019 [facility] quetiapine 50 MG Oral Tablet QUETIAPINE FUMARATE 05/07/2019 12:0 0:00 AM EST tablet 30 TAKE ONE TABLET BY MOUTH AT BEDT ADELFO TAKE ONE TABLET BY MOUTH AT BEDTIME SOLD: 05/07/2019 [facility] quetiapine 50 MG Oral Tablet QUETIAPINE FUMARATE 05/07/2019 12:0 0:00 AM EST tablet 30 TAKE ONE TABLET BY MOUTH AT BEDT ADELFO TAKE ONE TABLET BY MOUTH AT BEDTIME SOLD: 07/07/2019 [facility] 300 mg 05/06/2019 12:00:00 AM EST capsule 14 TAKE ONE CAPSULE BY MOUTH TWICE A DAY FOR MOOD TAKE ONE CAPSULE BY MOUTH TWICE A DAY FOR MOOD SOLD: 019 [facility] 300 mg 05/06/2019 12:00:00 AM EST capsule 14 TAKE ONE CAPSULE BY MOUTH TWICE A DAY FOR MOOD TAKE ONE CAPSULE BY MOUTH TWICE A DAY FOR MOOD SOLD: [facility] 300 mg 05/06/2019 12:00:00 AM EST capsule 14 TAKE ONE CAPSULE BY MOUTH TWICE A DAY FOR MOOD TAKE ONE CAPSULE BY MOUTH TWICE A DAY FOR MOOD SOLD: 020 [facility] 300 mg 05/06/2019 12:00:00 AM EST capsule 14 TAKE ONE CAPSULE BY MOUTH TWICE A DAY FOR MOOD TAKE ONE CAPSULE BY MOUTH TWICE A DAY FOR MOOD SOLD: [facility] Crutch Set - Crutch Set - 04/26/2019 12:00:00 AM EST active as directed eCW1 ([facility]) Crutch Set - Crutch Set - 04/26/2019 12:00:00 AM EST active as directed eCW1 ([facility]) 60 mg 02/26/2019 12:00:00 AM EDT capsule,delayed release (DR/EC) 60 TAKE TWO CAPSULES BY MOUTH EVERY DAY TAKE TWO CAPSULES BY MOUTH EVERY DAY SOLD: 08/26/2019 [facility] 60 mg 02/26/2019 12:00:00 AM EDT capsule,delayed release (DR/EC) 60 TAKE TWO CAPSULES BY MOUTH EVERY DAY TAKE TWO CAPSULES BY MOUTH EVERY DAY SOLD: 05/12/2019 [facility] 60 mg 02/26/2019 12:00:00 AM EDT capsule,delayed release (DR/EC) 60 TAKE TWO CAPSULES BY MOUTH EVERY DAY TAKE TWO CAPSULES BY MOUTH EVERY DAY SOLD: 04/01/2019 [facility] 60 mg 02/26/2019 12:00:00 AM EDT capsule,delayed release (DR/EC) 60 TAKE TWO CAPSULES BY MOUTH EVERY DAY TAKE TWO CAPSULES BY MOUTH EVERY DAY SOLD: 06/16/2019 [facility] 60 mg 02/26/2019 12:00:00 AM EDT capsule,delayed release (DR/EC) 60 TAKE TWO CAPSULES BY MOUTH EVERY DAY TAKE TWO CAPSULES BY MOUTH EVERY DAY SOLD: 07/20/2019 [facility] Insurance Providers Payer name Policy type / Coverage type Policy ID Covered constitution party ID Covered constitution party's relationship to garcia Policy Garcia Plan Information MEDICARE [id number] SP [id number] FOR LIFE [id number] SP [id number] [facility] [id number] SP [id number] OPTUM [place] O [id number] S [id number] OPTUM VA CCN [id number] SP [id number] VA CCN OPTUM [id number] SP [id number] 'S ADMINISTRATION [id number] SP [id number] [id number] O [id number] S [id number] NORIDIAN JE PART B C [id number] S [id number] For Life WPS Medigap Part B [id number] Self [id number] Medicare Natl Gov't Servi Medicare Primary [id number] Self [id number] MEDICARE [id number] SP [id number] A For Life WPS Medigap Part B [id number] Self [id number] Medicare Natl Gov't Servi Medicare Primary [id number] Self [id number] FOR LIFE O [id number] S [id number] MEDICARE C [id number] S [id number] A For Life WPS Medigap Part B [id number] Self [id number] Medicare Natl Gov't Servi Medicare Primary [id number] Self [id number] FOR LIFE [id number] SP [id number] Medicare Natl Gov't Servi Medigap Part B Self For Life WPS Commercial Self NORIDIAN JE PART B C [id number] S [id number] SELF PAY UNAVAILABLE UNAVAILA BLE [facility] [id number] SP [id number] [facility] O [id number] S [id number] O UNAVAILABLE UNAVAILA BLE [facility] P [id number] S [id number] A Problems, Conditions, and Diagnoses Code Display Name Description Problem Type Effective Dates Data Source(s) G89.29 [id number] Other chronic pain Problem 04/26/2019 12:00: 00 AM EST eCW1 ([facility]) Surgeries/Procedures Procedure Description Date Indications Data Source(s) Office Visit, Est Pt., Level 4 PC 07/09/2019 12:00:00 AM EST eCW1 ([facility]) Office Visit, Est Pt., Level 2 04/26/2019 12:00:00 AM EST eCW1 ([facility]) Inject/Drain Arthrocentesis Major Joint/Bursa/Ganglion Cyst 04/16/2019 12:00:00 AM EST MEDENT ([facility]) Vital Signs ID Date Data Source UNK Name Value Range Interpretation Code Description Data Source(s) Body weight 131.[address] [facility] ([facility]) Body mass index (BMI) [Ratio] 41.5 kg/m2 41.5 k g/m2 [facility] ([facility]) Body weight 289.00 [lb_av] 289.00 [lb_av] MEDEN T ([facility]) Body height 70 [in_i] 70 [in_i] [facility] ([facility]) 5'10" Body mass index (BMI) [Ratio] 36.5 kg/m2 36.5 k g/m[facility] Body height 70.5 [in_i] 70.5 [in_i] MEDENT ([facility], [facility]) 5'10.50" Body weight 258.00 [lb_av] 258.00 [lb_av] MEDEN T ([facility]) Body temperature 97.6 [degF] 97.6 [degF] MEDENT ([facility]) Oxygen saturation in Arterial blood by Pulse oximetry 96 % 96 % MEDENT ([facility], [facility]) Respiratory rate 16 /min 16 /min MEDENT ( [facility], [facility]) Heart rate 67 /min 67 /min MEDENT ([facility], [facility]) Diastolic blood pressure 84 mm[Hg] 84 mm[Hg] MEDENT ([facility], [facility]) Systolic blood pressure 123 mm[Hg] 123 mm[Hg] M EDENT ([facility], [facility]) Body mass index (BMI) [Ratio] 38.6 kg/m2 38.6 k g/m2 MEDENT ([facility], [facility]) Body height 71 [in_i] 71 [in_i] MEDENT ([facility], [facility]) 5'11" Body weight 277.00 [lb_av] 277.00 [lb_av] MEDEN T ([facility], [facility]) Body temperature 98.9 [degF] 98.9 [degF] MEDENT ([facility], [facility]) Oxygen saturation in Arterial blood by Pulse oximetry 99 % 99 % MEDENT ([facility], [facility]) Respiratory rate 18 /min 18 /min MEDENT ( [facility], [facility]) Heart rate 62 /min 62 /min MEDENT ([facility], [facility]) Diastolic blood pressure 44 mm[Hg] 44 mm[Hg] MEDENT ([facility], [facility]) Systolic blood pressure 120 mm[Hg] 120 mm[Hg] M EDENT ([facility], [facility]) Diastolic blood pressure 80 mm[Hg] 80 mm[Hg] eCW1 ([facility]) Systolic blood pressure 128 mm[Hg] 128 mm[Hg] e CW1 ([facility]) Body temperature 97.5 [degF] 97.5 [degF] eCW1 ( [facility]) Respiratory rate 18 /min 18 /min eCW1 ([facility]) Heart rate 80 /min 80 /min eCW1 ([facility]) Body mass index (BMI) [Ratio] 41.30 kg/m2 41.30 kg/m2 eCW1 ([facility]) Body height [in_us] eCW1 ([facility] [facility]) Body weight Measured 292 [lb_av] 292 [lb_av] eC W1 ([facility]) Body weight 131.090 kg 131.090 kg MEDENT ([facility]) Body mass index (BMI) [Ratio] 41.5 kg/m2 41.5 k g/m2 MEDENT ([facility]) Body weight 289.00 [lb_av] 289.00 [lb_av] MEDEN T ([facility]) Body height 70 [in_i] 70 [in_i] MEDENT ([facility]) 5'10" Body weight 131.090 kg 131.090 [facility] Body mass index (BMI) [Ratio] 41.5 kg/m2 41.5 k g/m2 MEDENT ([facility]) Body weight 289.00 [lb_av] 289.00 [lb_av] MEDEN T ([facility]) Body height 70 [in_i] 70 [in_i] MEDENT ([facility]) 5'10" Body mass index (BMI) [Ratio] 38.6 kg/m2 38.6 k g/m[facility] ([facility], [facility]) Body height 71 [in_i] 71 [in_i] MEDENT ([facility], [facility]) 5'11" Body weight 277.00 [lb_av] 277.00 [lb_av] MEDEN T ([facility], [facility]) Body temperature 98.9 [degF] 98.9 [degF] MEDENT ([facility], [facility]) Oxygen saturation in Arterial blood by Pulse oximetry 95 % 95 % [facility] ([place] [facility], [facility]) Respiratory rate 20 /min 20 /min MEDENT ( [facility], [facility]) Heart rate 70 /min 70 /min MEDENT ([facility], [facility]) Diastolic blood pressure 80 mm[Hg] 80 mm[Hg] MEDENT ([place] [facility], [facility]) Systolic blood pressure 120 mm[Hg] 120 mm[Hg] M EDENT ([place] [facility], [facility]) Diastolic blood pressure 84 mm[Hg] 84 mm[Hg] eCW1 ([facility]) Systolic blood pressure 138 mm[Hg] 138 mm[Hg] e CW1 ([facility]) Body temperature 97.0 [degF] 97.0 [degF] eCW1 ( [facility]) Respiratory rate 18 /min 18 /min eCW1 ([facility]) Heart rate 87 /min 87 /min eCW1 ([facility]) Body mass index (BMI) [Ratio] 41.73 kg/m2 41.73 kg/m2 eCW1 ([facility]) Body height [in_us] eCW1 ([facility]) Body weight Measured 295 [lb_av] 295 [lb_av] eC W1 ([facility]) Patient Treatment Plan of Care Planned Activity Planned Date Details Description Data Source (s) Pat Set - 04/26/2019 12:00:00 AM EST e CW1 ([facility])
[2020-05-28 13:11] LABS: AMPHETAMINES LEVEL URINE NEGATIVE (NEGATIVE); BARBITURATES URINE NEGATIVE (NEGATIVE); BENZODIAZEPINES URINE NEGATIVE (NEGATIVE); CANNABINOIDS URINE NEGATIVE (NEGATIVE); COCAINE METABOLITE URINE NEGATIVE (NEGATIVE); METHADONE URINE NEGATIVE (NEGATIVE); OPIATES URINE NEGATIVE (NEGATIVE); PHENCYCLIDINE URINE NEGATIVE (NEGATIVE)
[2020-05-28 13:12] LABS: HEMATOCRIT 47.5 % (42.0-52.0); HEMOGLOBIN 15.6 g/dl (13.5-17.5); MEAN CORPUSCULAR HEMOGLOBIN 31.3 pg (27.0-33.0); MEAN CORPUSCULAR HGB CONC 32.8 g/dl (32.0-36.5); MEAN CORPUSCULAR VOLUME 95.4 fl (80.0-96.0); PLATELET COUNT, AUTOMATED 175 10^3/uL (150-450); RED BLOOD COUNT 4.98 10^6/uL (4.30-6.10); WHITE BLOOD COUNT 6.4 10^3/uL (4.0-10.0)
--- OUTSIDE RECORDS SUMMARY | 2020-05-28 13:16 | CCD ---
Author Author [facility] Organization [facility] Address Unknown Phone Unavailable Care Team Providers [employer] Person Name Role Phone PAMELA, E TRENA SAIL REPAIR PERSON Unavailable Unavailable PAMELA, E TRENA SAIL REPAIR PERSON Unavailable Unavailable PAMELA, E TRENA SAIL REPAIR PERSON Unavailable Unavailable PAMELA, E TRENA SAIL REPAIR PERSON Unavailable Unavailable PAMELA, E TRENA SAIL REPAIR PERSON Unavailable Unavailable PAMELA, E TRENA SAIL REPAIR PERSON Unavailable Unavailable PAMELA, E TRENA SAIL REPAIR PERSON Unavailable Unavailable PAMELA, E TRENA SAIL REPAIR PERSON Unavailable Unavailable PAMELA, E TRENA SAIL REPAIR PERSON Unavailable Unavailable PAMELA, E TRENA SAIL REPAIR PERSON Unavailable Unavailable PAMELA, E TRENA SAIL REPAIR PERSON Unavailable Unavailable PAMELA, E TRENA SAIL REPAIR PERSON Unavailable Unavailable PAMELA, E TRENA SAIL REPAIR PERSON Unavailable Unavailable PAMELA, E TRENA SAIL REPAIR PERSON Unavailable Unavailable PAMELA, E TRENA SAIL REPAIR PERSON Unavailable Unavailable PAMELA, E TRENA SAIL REPAIR PERSON Unavailable Unavailable PAMELA, E TRENA SAIL REPAIR PERSON Unavailable Unavailable PAMELA, E TRENA SAIL REPAIR PERSON Unavailable Unavailable PAMELA, E TRENA SAIL REPAIR PERSON Unavailable Unavailable PAMELA, E TRENA SAIL REPAIR PERSON Unavailable Unavailable PAMELA, E TRENA SAIL REPAIR PERSON Unavailable Unavailable PAMELA, E TRENA SAIL REPAIR PERSON Unavailable Unavailable PAMELA, E TRENA SAIL REPAIR PERSON Unavailable Unavailable PAMELA, E TRENA SAIL REPAIR PERSON Unavailable Unavailable PAMELA, E TRENA SAIL REPAIR PERSON Unavailable Unavailable PAMELA, E TRENA SAIL REPAIR PERSON Unavailable Unavailable PAMELA, E TRENA SAIL REPAIR PERSON Unavailable Unavailable PAMELA, E TRENA SAIL REPAIR PERSON Unavailable Unavailable PAMELA, E TRENA SAIL REPAIR PERSON Unavailable Unavailable PAMELA, E TRENA SAIL REPAIR PERSON Unavailable Unavailable Pratik Rogers MD Unavailable Unavailable [...] K CHARITY PA Unavailable Unavailable RING, K HCARITY PA Unavailable Unavailable RING, K CHARITY PA [...] is protected by Article 27-F of the [facility] Public Health law. If you continue you may have access to information: Regarding HIV / AIDS; Provided by facilities licensed or operated by the [facility] Office of Mental Health; or Provided by the [facility] Office for People With Developmental Disabilities. If such information is present, then the following [facility] mandated warning applies: This information has [...] law may result in a fine or usp sentence or both. A general authorization for the release of medical or other information is NOT sufficient authorization for further disc losure. Allergies and Adverse Reactions Type Description Substance Reaction Status Data Source(s ) Drug Allergy NKDA NKDA MEDENT ([facility], [facility]) Family History Family Member Name Family Member Gender Family Member Status Date o f Status Description Data Source(s) Unknown Unknown Problem MEDENT ([facility], [facility]) Encounters Encounter Providers Location Date Indications Data Source(s ) Outpatient Attender: CHARITY Cruz Primary 01/06/2020 09:45:00 AM EDT MEDENT ([facility], [facility]) Outpatient Attender: CHARITY Cruz Primary 11/27/2019 08:15:00 AM EDT MEDENT ([facility], [facility]) Outpatient Referrer: TRENA SANTIAGO NP 10/13/2019 05:01:00 PM EDT [facility] [place] [address] [place] [place] [address] 10/03/2019 12:00:00 AM EDT eCW1 ([facility]) [facility] Rick [address] [place] [address] 09/23/2019 12:00:00 AM EDT eCW1 ([facility]) [facility] Rikc [address] [place] [place] [address] 07/09/2019 12:00:00 AM EST eCW1 ([facility]) Outpatient Attender: Justice Barbosa/Rebecca/Seb/Re indl 06/05/2019 09:15:00 AM EST MEDENT ([facility] Outpatient Attender: CHARITY Cruz Primary 06/03/2019 03:00:00 PM EST MEDENT ([facility]) Outpatient Referrer: TRENA SANTIAGO SAIL REPAIR PERSON 06/03/2019 12:08:00 PM EST [facility] Outpatient Referrer: TRENA SANTIAGO SAIL REPAIR PERSON 06/03/2019 12:08:00 PM EST [facility] Outpatient Attender: Gasper Barbosa/Rebecca/Seb/Re indl 05/17/2019 08:40:00 AM EST MEDENT ([facility]) Outpatient Referrer: TRENA SANTIAGO SAIL REPAIR PERSON 05/15/2019 02:08:00 PM EST [facility] Rick [address] [place] [address], [place] [address] 04/26/2019 12:00:00 AM EST eCW1 ([facility]) [facility] Violet [address] [place] [address], [place] [address] 04/23/2019 12:00:00 AM EST eCW1 ([facility]) [facility] Rick [address] [place] [address], [place] [address] 04/17/2019 12:00:00 AM EST eCW1 ([facility]) Outpatient Attender: Gasper Barbosa/Rebecca/Seb/Re indl 04/16/2019 01:10:00 PM EST MEDENT ([facility]) [facility] Violet [address] [place] [address], [place] [address] 04/16/2019 12:00:00 AM EST eCW1 ([facility]) Immunizations Vaccine Date Status Description Data Source(s) INFLUENZA VIRUS VACCINE QUADRIVALENT 2019- (6 MOS AN D UP) 01/26/2020 12:00:00 AM EDT completed [email or web address] Medications Medication Brand Name Start Date Product [...] 2 WEEKS WHEN DRAINAGE STARTS SOLD: 01/18/2020 [facility] cefdinir 300 MG Oral Capsule Cefdinir 01/06/2020 12:00:00 AM EDT ORAL active MEDENT ([facility]) 300 mg 01/06/2020 12:00:00 [...] 11/27/2019 12:00:00 AM EDT ORAL completed MEDENT ([facility], [facility]) 60 mg 10/11/2019 12:00:00 AM EDT capsule,delayed [...] CAPSULES BY MOUTH EVERY DAY SOLD: 02/01/2020 [facility] 60 mg 10/11/2019 12:00:00 AM [...] 06/03 12:00:00 AM EST ORAL completed MEDENT ([facility], [facility]) 200 ACTUAT Albuterol 0.09 MG/ACTUAT Metered Dose Inhaler [Pr oAir] Proair HFA 06/03/2019 12:00:00 AM EST ORAL completed MEDENT ([facility]) Nebulizer 06/03/2019 12:00:00 AM EST complete d MEDENT ([facility], [facility]) Albuterol 0.83 MG/ML Inhalant Solution Albuterol Sulfate 0 06/03/2019 12:00:00 AM EST ORAL completed MEDENT ([facility]) 5 mg 05/08/2019 12:00:00 AM EST capsule [...] 12:00:00 AM EST active as directed eCW1 ([facility]) Crutch Set - Crutch Set - 04/26/2019 12:00:00 AM EST active as directed eCW1 ([facility]) 60 mg 02/26/2019 12:00:00 AM EDT capsule,delayed [...] type / Coverage type Policy ID Covered democrat ID Covered democrat's relationship to garcia Policy Garcia Plan Information MEDICARE [id number] SP [id number] FOR LIFE [id number] SP [id number] WPS [facility] [id number] SP [id number] OPTUM VA O [id number] S [id number] OPTUM VA CCN [id number] SP [id number] 23 VA CCN OPTUM [id number] SP [id number] 23 'S ADMINISTRATION [id number] SP [id number] [facility]/136E O [id number] S [id number] NORIDIAN JE PART B C [id number] S [id number] For Life WPS Medigap Part B [id number] Self [id number] Medicare Natl Gov't Servi Medicare Primary [id number] Self [id number] MEDICARE [id number] SP [id number] A For Life WPS Medigap Part B [id number] Self [id number] Medicare Natl Gov't Servi Medicare Primary [id number] Self [id number] FOR LIFE O [id number] S [id number] MEDICARE C [id number] S [id number] A For Life WPS Medigap Part B [id number] Self [id number] Medicare Natl Gov't Servi Medicare Primary [id number] Self [id number] FOR LIFE [id number] SP [id number] Medicare Natl Gov't Servi Medigap Part B Self For Life WPS Commercial Self NORIDIAN JE PART B C [id number] S [id number] SELF PAY UNAVAILABLE UNAVAILA BLE [facility] [id number] SP [id number] [facility] O [id number] S [id number] O UNAVAILABLE UNAVAILA BLE VA [facility] P [id number] S [id number] A Problems, Conditions, and Diagnoses Code Display Name Description Problem Type Effective Dates Data Source(s) G89.29 [id number] Other chronic pain Problem 04/26/2019 12:00: 00 AM EST eCW1 ([facility]) Surgeries/Procedures Procedure Description Date Indications Data Source(s) Office Visit, Est Pt., Level 4 PC 07/09/2019 12:00:00 AM EST eCW1 ([facility]) Office Visit, Est Pt., Level 2 04/26/2019 12:00:00 AM EST eCW1 ([facility]) Inject/Drain Arthrocentesis Major Joint/Bursa/Ganglion Cyst 04/16/2019 12:00:00 AM EST MEDENT ([facility]) Vital Signs ID Date Data Source UNK Name Value Range Interpretation Code Description Data Source(s) Body weight 131.090 kg 131.[address] [facility] ([facility]) Body mass index (BMI) [Ratio] 41.5 kg/m2 41.5 k g/m2 [facility] ([facility]) Body weight 289.00 [lb_av] 289.00 [lb_av] MEDEN T ([facility]) Body height 70 [in_i] 70 [in_i] [facility] ([facility]) 5'10" Body mass index (BMI) [Ratio] 36.5 kg/m2 36.5 k g/m2 [facility] Body height 70.5 [in_i] 70.5 [in_i] MEDENT ([facility]) 5'10.50" Body weight 258.00 [lb_av] 258.00 [lb_av] MEDEN T ([facility]) Body temperature 97.6 [degF] 97.6 [degF] MEDENT ([facility] [facility]) Oxygen saturation in Arterial blood by Pulse oximetry 96 % 96 % MEDENT ([facility], [facility]) Respiratory rate 16 /min 16 /min MEDENT ( [facility], [facility]) Heart rate 67 /min 67 /min MEDENT ([facility], [facility]) Diastolic blood pressure 84 mm[Hg] 84 mm[Hg] MEDENT ([facility], [facility]) Systolic blood pressure 123 mm[Hg] 123 mm[Hg] M EDENT ([facility], [facility]) Body mass index (BMI) [Ratio] 38.6 kg/m2 38.6 k g/m2 MEDENT ([facility], [facility]) Body height 71 [in_i] 71 [in_i] MEDENT ([facility], [facility]) 5'11" Body weight 277.00 [lb_av] 277.00 [lb_av] MEDEN T ([place] [facility], [facility]) Body temperature 98.9 [degF] 98.9 [degF] MEDENT ([facility], [facility]) Oxygen saturation in Arterial blood by Pulse oximetry 99 % 99 % MEDENT ([facility], [facility]) Respiratory rate 18 /min 18 /min MEDENT ( [facility], [facility]) Heart rate 62 /min 62 /min MEDENT ([facility], [facility]) Diastolic blood pressure 44 mm[Hg] 44 mm[Hg] MEDENT ([place] [facility], [facility]) Systolic blood pressure 120 mm[Hg] 120 mm[Hg] M EDENT ([facility], [facility]) Diastolic blood pressure 80 mm[Hg] 80 mm[Hg] eCW1 ([facility]) Systolic blood pressure 128 mm[Hg] 128 mm[Hg] e CW1 ([facility]) Body temperature 97.5 [degF] 97.5 [degF] eCW1 ( [facility]) Respiratory rate 18 /min 18 /min eCW1 ([facility]) Heart rate 80 /min 80 /min eCW1 ([facility]) Body mass index (BMI) [Ratio] 41.30 kg/m2 41.30 kg/m2 eCW1 ([facility]) Body height [in_us] eCW1 ([facility]) Body weight Measured 292 [lb_av] 292 [lb_av] eC W1 ([facility]) Body weight 131.090 kg 131.090 kg MEDENT ([facility]) Body mass index (BMI) [Ratio] 41.5 kg/m2 41.5 k g/m2 MEDENT ([facility]) Body weight 289.00 [lb_av] 289.00 [lb_av] MEDEN T ([facility]) Body height 70 [in_i] 70 [in_i] MEDENT ([facility]) 5'10" Body weight 131.090 kg 131.090 [facility] Body mass index (BMI) [Ratio] 41.5 kg/m2 41.5 k g/m2 MEDENT ([facility]) Body weight 289.00 [lb_av] 289.00 [lb_av] MEDEN T ([facility]) Body height 70 [in_i] 70 [in_i] MEDENT ([facility]) 5'10" Body mass index (BMI) [Ratio] 38.6 kg/m2 38.6 k g/m2 [facility]) Body height 71 [in_i] 71 [in_i] MEDENT ([facility], [facility]) 5'11" Body weight 277.00 [lb_av] 277.00 [lb_av] MEDEN T ([facility], [facility]) Body temperature 98.9 [degF] 98.9 [degF] MEDENT ([facility], [facility]) Oxygen saturation in Arterial blood by Pulse oximetry 95 % 95 % [facility] ([place] [facility], [facility]) Respiratory rate 20 /min 20 /min MEDENT ( [facility], [facility]) Heart rate 70 /min 70 /min MEDENT ([facility], [facility]) Diastolic blood pressure 80 mm[Hg] 80 mm[Hg] MEDENT ([place] [facility], [facility]) Systolic blood pressure 120 mm[Hg] 120 mm[Hg] M EDENT ([place] [facility], [facility]) Diastolic blood pressure 84 mm[Hg] 84 mm[Hg] eCW1 ([facility]) Systolic blood pressure 138 mm[Hg] 138 mm[Hg] e CW1 ([facility]) Body temperature 97.0 [degF] 97.0 [degF] eCW1 ( [facility]) Respiratory rate 18 /min 18 /min eCW1 ([facility]) Heart rate 87 /min 87 /min eCW1 ([facility]) Body mass index (BMI) [Ratio] 41.73 kg/m2 41.73 kg/m2 eCW1 ([facility]) Body height [in_us] eCW1 ([facility]) Body weight Measured 295 [lb_av] 295 [lb_av] eC W1 ([facility]) Patient Treatment Plan of Care Planned Activity Planned Date Details Description Data Source (s) Pat Set - 04/26/2019 12:00:00 AM EST e CW1 ([facility])
[2020-05-28 13:49] LABS: ACETAMINOPHEN LEVEL < 2.0 UG/ML (10.0-30.0); ALBUMIN 4.4 GM/DL (3.2-5.2); ALT/SGPT 24 U/L (12-78); BILIRUBIN,DIRECT 0.2 MG/DL (0.0-0.2); BILIRUBIN,TOTAL 0.6 MG/DL (0.2-1.0); BLOOD UREA NITROGEN 12 MG/DL (7-18); CALCIUM LEVEL 9.2 MG/DL (8.8-10.2); CARBON DIOXIDE LEVEL 31 MEQ/L (21-32); CHLORIDE LEVEL 107 MEQ/L (98-107); CREATININE FOR GFR 0.82 MG/DL (0.70-1.30); ETHYL ALCOHOL (ETHANOL) 0.023 % (0.000-0.010); GLOMERULAR FILTRATION RATE > 60.0 (>49); GLUCOSE, FASTING 92 MG/DL (70-100); POTASSIUM SERUM 4.3 MEQ/L (3.5-5.1); SALICYLATE LEVEL 4.2 MG/DL (5.0-30.0); SODIUM LEVEL 142 MEQ/L (136-145); TOTAL PROTEIN 7.5 GM/DL (6.4-8.2)
[2020-05-28 14:51] LABS: LITHIUM LEVEL 0.31 MEQ/L (0.60-1.20)
[2020-05-28 15:32] LABS: FREE T4 0.92 NG/DL (0.76-1.46)
[2020-05-28 17:02] VITALS: BP 145/88
== END 2020-05-28 17:14 | disposition home or self-care (01) ==
LOC: M ED 11:50
DX: F31.32 Bipolar disorder, current episode depressed, moderate (principal); F10.129 Alcohol abuse with intoxication, unspecified; Z86.711 Personal history of pulmonary embolism; G47.33 Obstructive sleep apnea (adult) (pediatric); I10 Essential (primary) hypertension; F43.10 Post-traumatic stress disorder, unspecified; K22.70 Barrett's esophagus without dysplasia; Z79.899 Other long term (current) drug therapy
CPT/HCPCS: 36415; 80048; 80076; 80178; 80307; 84439; 84443; 85027; 99284; G0480

== ENCOUNTER → 2020-08-21 | Outpatient (CLI) | payer MEDICARE, OTHER ==
[~2020-08-21] MED LIST changes: +FERR324T21 PO; -FERR325T16 PO
--- NOTE | 2020-08-21 15:14 | REP ---
INDICATION: OSTEOARTHRITIS LEFT KNEE. COMPARISON: 04/24/2019. TECHNIQUE: Multiple sequences obtained in the axial, coronal and sagittal planes. FINDINGS: Menisci: Previously noted complex tear of the posterior horn of the medial meniscus is again noted. The lateral meniscus is intact. Cruciate ligaments: Intact. Collateral ligaments: Intact. Extensor mechanism/patellar retinacula: Intact. 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 Linear fissures are seen in the anterior cartilage extending down to the bone. Otherwise is relatively mild global chondromalacia diffusely. Bone marrow: There is mild subchondral marrow edema in the medial femoral condyle. Joint fluid: There is a small joint effusion. Popliteal region: A Lee's cyst is present. Maximal craniocaudal length is approximately 7.5 cm, maximum AP dimension approximately 3.2 cm and transverse 2.9 cm. IMPRESSION: Complex tear posterior horn medial meniscus again noted. No new meniscal tear. Severe chondromalacia medial femoral condyle with mild subchondral marrow edema. There is linear fissuring anteriorly down to the bone. Small joint effusion. Lee's cyst. <Electronically signed by Mark Hurst > 08/21/20 [id number]
== END ==
LOC: M PLARAD 13:40
PROVIDERS: ATTEND Orthopaedic Surgery
DX: S83.232A Complex tear of medial meniscus, current injury, left knee, initial encounter (principal); X58.XXXA Exposure to other specified factors, initial encounter; Y92.89 Other specified places as the place of occurrence of the external cause; Y93.89 Activity, other specified; Y99.8 Other external cause status; M71.22 Synovial cyst of popliteal space [Baker], left knee; M22.42 Chondromalacia patellae, left knee

== ENCOUNTER → 2020-10-08 | Outpatient (REF) | payer MEDICARE, OTHER ==
[2020-10-08 18:16] LABS: BLOOD UREA NITROGEN 14 MG/DL (7-18); CALCIUM LEVEL 8.7 MG/DL (8.8-10.2); CARBON DIOXIDE LEVEL 27 MEQ/L (21-32); CHLORIDE LEVEL 110 MEQ/L (98-107); CREATININE FOR GFR 0.82 MG/DL (0.70-1.30); GLOMERULAR FILTRATION RATE > 60.0 (>49); GLUCOSE, FASTING 82 MG/DL (70-100); POTASSIUM SERUM 3.8 MEQ/L (3.5-5.1); SODIUM LEVEL 142 MEQ/L (136-145)
== END ==
LOC: M LABDRWAD 17:00
PROVIDERS: ATTEND Orthopaedic Surgery
DX: Z01.812 Encounter for preprocedural laboratory examination (principal)

== ENCOUNTER → 2021-06-23 | Outpatient (CLI) | payer OTHER ==
[~2021-06-23] MED LIST changes: +TIZA10TA PO; -TIZA4TAB4 PO
== END ==
LOC: M WHC 10:55
PROVIDERS: ATTEND Family Medicine
DX: M85.88 Other specified disorders of bone density and structure, other site (principal); M85.851 Other specified disorders of bone density and structure, right thigh; M85.852 Other specified disorders of bone density and structure, left thigh

== ENCOUNTER → 2021-07-15 | Outpatient (CLI) | payer OTHER ==
[~2021-07-15] MED LIST changes: -D31000TA2 PO; +VITA100093 PO
== END ==
LOC: M RAD 15:11
PROVIDERS: ATTEND Family Medicine
DX: M51.26 Other intervertebral disc displacement, lumbar region (principal)

== ENCOUNTER 2021-08-04 17:23 | Inpatient (IN) | payer OTHER ==
[~2021-08-04] VITALS: Ht 177.8 cm; Wt 116.3 kg
[2021-08-04 18:28] LABS: VENOUS BASE EXCESS -1.5 (-2.0-2.0); VENOUS HCO3 25.1 MEQ/L (23.0-27.0); VENOUS O2 SATURATION 37.3 % (60.0-80.0); VENOUS PARTIAL PRESSURE CO2 49.2 mmHg (38.0-50.0); VENOUS PARTIAL PRESSURE O2 20.3 mmHg (30.0-50.0); VENOUS PH 7.325 UNITS (7.330-7.430); VENOUS STANDARD HCO3 21.7 MEQ/L; VENOUS TOTAL CO2 26.6 MEQ/L (24.0-28.0)
[2021-08-04 18:31] LABS: BASO % 0.6 % (0.0-1.0); EOS # 0.2 10^3/uL (0.0-0.5); HEMATOCRIT 44.5 % (42.0-52.0); HEMOGLOBIN 14.6 g/dl (13.5-17.5); LYMPH # 1.6 10^3/uL (1.5-5.0); LYMPH % 33.8 % (24.0-44.0); MEAN CORPUSCULAR HEMOGLOBIN 31.3 pg (27.0-33.0); MEAN CORPUSCULAR HGB CONC 32.8 g/dl (32.0-36.5); MEAN CORPUSCULAR VOLUME 95.5 fl (80.0-96.0); MONO # 0.4 10^3/uL (0.0-0.8); MONO % 7.8 % (2.0-8.0); NEUTROPHILS # 2.5 10^3/uL (1.5-8.5); NEUTROPHILS % 53.6 % (36.0-66.0); PLATELET COUNT, AUTOMATED 150 10^3/uL (150-450); RED BLOOD COUNT 4.66 10^6/uL (4.30-6.10); WHITE BLOOD COUNT 4.7 10^3/uL (4.0-10.0)
[2021-08-04 18:45] LABS: INR 0.91; PARTIAL THROMBOPLASTIN TIME 29.5 SECONDS (25.9-37.0); PROTHROMBIN TIME 12.6 SECONDS (12.7-14.5)
[2021-08-04] MEDS ORDERED: dexameTHASONE 4 MG/ML 1ML VIAL (J1100 PER 1MG) IV ONE (19:00)
[2021-08-04 19:02] LABS: CK-MB VALUE MASS 1.3 NG/ML (<3.6); MB/CK RELATIVE INDEX 1.16 (< OR =4)
[2021-08-04 19:04] LABS: ALBUMIN 4.3 GM/DL (3.2-5.2); ALT/SGPT 26 U/L (12-78); BILIRUBIN,DIRECT 0.2 MG/DL (0.0-0.2); BILIRUBIN,TOTAL 0.3 MG/DL (0.2-1.0); BLOOD UREA NITROGEN 12 MG/DL (7-18); CALCIUM LEVEL 8.6 MG/DL (8.8-10.2); CARBON DIOXIDE LEVEL 31 MEQ/L (21-32); CHLORIDE LEVEL 111 MEQ/L (98-107); CREATININE FOR GFR 0.82 MG/DL (0.70-1.30); GLOMERULAR FILTRATION RATE > 60.0 (>49); GLUCOSE, FASTING 88 MG/DL (70-100); NT-PRO BNP 50 PG/ML (<125); POTASSIUM SERUM 3.4 MEQ/L (3.5-5.1); SODIUM LEVEL 146 MEQ/L (136-145); THYROXINE (T4) 8.8 UG/DL (4.5-12.0); TOTAL PROTEIN 7.2 GM/DL (6.4-8.2)
[2021-08-04] MEDS: COMBIVENT RESPIMAT 100-20MCG INHALER 4GM INH SCH ×2 (19:12→20:35)
[2021-08-04] MEDS ORDERED: ELIQ5TAB PO (20:40)
[2021-08-04] MEDS ORDERED: VITMTA PO (20:40)
[2021-08-04] MEDS ORDERED: OXCA300T14 PO (20:42)
[2021-08-04] MEDS ORDERED: HOME MED LIST COMPLETE! XX SCH (20:45)
[2021-08-04] MEDS ORDERED: OXcarbazepine 300 MG TAB PO SCH (21:00)
[2021-08-04] MEDS ORDERED: DOCUSATE SODIUM 100MG CAPSULE PO SCH (21:00)
[2021-08-04] MEDS ORDERED: APIXABAN 5 MG TAB (ELIQUIS) PO SCH (21:00)
[2021-08-04] MEDS ORDERED: PANTOPRAZOLE 40MG VIAL IV SCH (21:00)
[2021-08-04] MEDS ORDERED: FERROUS GLUCONATE 324 MG TAB PO SCH (21:00)
[2021-08-04] MEDS ORDERED: LITHIUM CARBONATE 300 MG CAP PO SCH (21:00)
[2021-08-04 21:57] LABS: RSV AMPLIFICATION NEGATIVE (NEGATIVE)
[2021-08-04] MEDS ORDERED: ACETAMINOPHEN TAB 650MG DOSE (2X325MG) PO PRN (22:45)
[2021-08-04] MEDS ORDERED: NS 0.45% 1,000 ML IV SCH (22:55)
[2021-08-04 23:11] VITALS: BP 157/90
[2021-08-04 23:23] LABS: D-DIMER QUANT 313.53 ng/ml (<500)
[2021-08-04 23:24] LABS: C REACTIVE PROTEIN QUANTITATIV 0.48 MG/DL (0.00-0.30); FERRITIN 98 NG/ML (26-388)
[2021-08-04] MEDS ORDERED: REMDESIVIR 200 MG in NS 250 ML IV ONE (23:30)
[2021-08-04 23:53] VITALS: O2SAT 96
[2021-08-05] VITALS: O2SAT 94
[2021-08-05 00:21] LABS: HEMATOCRIT 42.1 % (42.0-52.0); HEMOGLOBIN 14.3 g/dl (13.5-17.5)
[2021-08-05] MEDS ORDERED: POTASSIUM CHLORIDE 10MEQ SR TABLET PO ONE (00:25)
[2021-08-05] MEDS ORDERED: SODIUM CHLORIDE 0.9% INJ 10 ML SYR IV ONE (01:30)
[2021-08-05] MEDS ORDERED: ALBUTEROL 90 MCG/ACT 8GM HFA INHALER INH PRN (03:05)
[2021-08-05 04:00] VITALS: O2SAT 90
[2021-08-05 05:27] VITALS: BP 126/79
[2021-08-05] MEDS ORDERED: LEVOTHYROXINE 100MCG TABLET (0.1MG) PO SCH (06:00)
[2021-08-05] MEDS ORDERED: LEVOTHYROXINE 150MCG TABLET (0.15MG) PO SCH (06:00)
[2021-08-05 06:42] LABS: HEMATOCRIT 40.4 % (42.0-52.0); HEMOGLOBIN 13.5 g/dl (13.5-17.5); MEAN CORPUSCULAR HEMOGLOBIN 31.4 pg (27.0-33.0); MEAN CORPUSCULAR HGB CONC 33.4 g/dl (32.0-36.5); PLATELET COUNT, AUTOMATED 143 10^3/uL (150-450); WHITE BLOOD COUNT 5.2 10^3/uL (4.0-10.0)
[2021-08-05 07:03] LABS: BLOOD UREA NITROGEN 11 MG/DL (7-18); CALCIUM LEVEL 8.4 MG/DL (8.8-10.2); CARBON DIOXIDE LEVEL 26 MEQ/L (21-32); CHLORIDE LEVEL 112 MEQ/L (98-107); CREATININE FOR GFR 0.69 MG/DL (0.70-1.30); GLOMERULAR FILTRATION RATE > 60.0 (>49); GLUCOSE, FASTING 118 MG/DL (70-100); MAGNESIUM LEVEL 2.2 MG/DL (1.8-2.4); POTASSIUM SERUM 3.8 MEQ/L (3.5-5.1); SODIUM LEVEL 142 MEQ/L (136-145)
[2021-08-05] MEDS ORDERED: DULoxetine 30MG CAPSULE (CYMBALTA) PO SCH (09:00)
[2021-08-05] MEDS ORDERED: FUROSEMIDE 40 MG TAB PO SCH (09:00)
[2021-08-05] MEDS ORDERED: dexameTHASONE 4 MG/ML 1ML VIAL (J1100 PER 1MG) IV SCH (09:00)
[2021-08-05] MEDS ORDERED: NICOTINE 14 MG/24 HR TRANSDERMAL TD SCH (09:00)
[2021-08-05] MEDS ORDERED: MULTIVITAMINS/MINERALS THERAP 1 TAB PO SCH (09:00)
[2021-08-05] MEDS ORDERED: VENTAER INH (09:40)
[2021-08-05] MEDS ORDERED: REMDESIVIR 100 MG in NS 250 ML IV SCH (12:00)
[2021-08-05] MEDS ORDERED: SODIUM CHLORIDE 0.9% INJ 10 ML SYR IV SCH (13:00)
== END 2021-08-05 13:30 | disposition home or self-care (01) | DRG 178 ==
LOC: M ED 17:23 → M ED INP 21:44 → ENRESERV 22:16 → M 4MAIN 23:18
PROVIDERS: ADMIT Family Medicine; ATTEND Family Medicine
PROC: 3E0333Z Introduction of Anti-inflammatory into Peripheral Vein, Percutaneous Approach (ICD-10-PCS; principal; 2021-08-04)
PROC: XW033E5 Introduction of Remdesivir Anti-infective into Peripheral Vein, Percutaneous Approach, New Technology Group 5 (ICD-10-PCS; 2021-08-04)
DX: U07.1 COVID-19 (principal); K62.5 Hemorrhage of anus and rectum; G47.33 Obstructive sleep apnea (adult) (pediatric); J44.9 Chronic obstructive pulmonary disease, unspecified; I27.20 Pulmonary hypertension, unspecified; Z86.711 Personal history of pulmonary embolism; K21.9 Gastro-esophageal reflux disease without esophagitis; Z85.850 Personal history of malignant neoplasm of thyroid; E03.9 Hypothyroidism, unspecified; E66.01 Morbid (severe) obesity due to excess calories; F43.10 Post-traumatic stress disorder, unspecified; F32.A Depression, unspecified; Z91.51 Personal history of suicidal behavior; F17.210 Nicotine dependence, cigarettes, uncomplicated; I10 Essential (primary) hypertension; Z98.84 Bariatric surgery status; E87.6 Hypokalemia; Z68.36 Body mass index [BMI] 36.0-36.9, adult; Z79.01 Long term (current) use of anticoagulants; Z79.899 Other long term (current) drug therapy

== ENCOUNTER 2021-10-01 16:13 | Emergency (ER) | payer OTHER ==
[~2021-10-01] VITALS: Ht 180.3 cm; Wt 125.2 kg
[~2021-10-01 16:13] MED LIST changes: +ELIQ5TAB PO; +OXCA300T14 PO; +VENTAER INH; +VITMTA PO
[2021-10-01 16:52] VITALS: BP 139/79
[2021-10-01] MEDS ORDERED: ACETAMINOPHEN TAB 650MG DOSE (2X325MG) PO ONE (17:15)
[2021-10-01] MEDS ORDERED: IPRATROPIUM 0.5MG/ALBUTEROL 2.5MG INH SOL UD 3ML (DUONEB) NEB ONE (17:15)
[2021-10-01 17:52] LABS: ABG BASE EXCESS 0.1 (-2.0-2.0); ABG HCO3 23.2 MEQ/L (22.0-26.0); ABG O2 SATURATION 94.2 % (95.0-99.0); ABG PARTIAL PRESSURE CO2 33.5 mmHg (35.0-45.0); ABG PARTIAL PRESSURE O2 66.2 mmHg (75.0-100.0); ABG STANDARD HCO3 24.5 MEQ/L (22.0-26.0); ABG TOTAL CO2 24.3 MEQ/L (23.0-31.0); ABG pH (ARTERIAL) 7.459 UNITS (7.350-7.450)
[2021-10-01 18:06] LABS: BASO % 0.6 % (0.0-1.0); EOS # 0.2 10^3/uL (0.0-0.5); EOS % 3.6 % (0.0-3.0); HEMATOCRIT 42.4 % (42.0-52.0); HEMOGLOBIN 14.5 g/dl (13.5-17.5); LYMPH # 1.7 10^3/uL (1.5-5.0); MEAN CORPUSCULAR HEMOGLOBIN 32.4 pg (27.0-33.0); MEAN CORPUSCULAR HGB CONC 34.2 g/dl (32.0-36.5); MEAN CORPUSCULAR VOLUME 94.6 fl (80.0-96.0); MONO # 0.4 10^3/uL (0.0-0.8); MONO % 5.7 % (2.0-8.0); NEUTROPHILS % 62.6 % (36.0-66.0); PLATELET COUNT, AUTOMATED 159 10^3/uL (150-450); RED BLOOD COUNT 4.48 10^6/uL (4.30-6.10); WHITE BLOOD COUNT 6.3 10^3/uL (4.0-10.0)
[2021-10-01 18:38] LABS: RSV AMPLIFICATION NEGATIVE (NEGATIVE)
[2021-10-01 18:40] LABS: CK-MB VALUE MASS 1.6 NG/ML (<3.6); MB/CK RELATIVE INDEX 0.66 (< OR =4)
[2021-10-01 18:44] LABS: ALBUMIN 3.8 GM/DL (3.2-5.2); ALT/SGPT 23 U/L (12-78); BILIRUBIN,DIRECT 0.1 MG/DL (0.0-0.2); BILIRUBIN,TOTAL 0.6 MG/DL (0.2-1.0); BLOOD UREA NITROGEN 13 MG/DL (7-18); CARBON DIOXIDE LEVEL 29 MEQ/L (21-32); CHLORIDE LEVEL 110 MEQ/L (98-107); CREATININE FOR GFR 0.82 MG/DL (0.70-1.30); GLOMERULAR FILTRATION RATE > 60.0 (>49); GLUCOSE, FASTING 90 MG/DL (70-100); NT-PRO BNP 29 PG/ML (<125); POTASSIUM SERUM 4.5 MEQ/L (3.5-5.1); SODIUM LEVEL 144 MEQ/L (136-145); TOTAL PROTEIN 6.8 GM/DL (6.4-8.2)
[2021-10-01] MEDS ORDERED: MOXI1TAB PO (19:11)
[2021-10-01 19:51] LABS: CK-MB VALUE MASS 1.6 NG/ML (<3.6); MB/CK RELATIVE INDEX 1.16 (< OR =4)
== END 2021-10-01 19:30 | disposition home or self-care (01) ==
LOC: M ED 16:13
DX: J18.9 Pneumonia, unspecified organism (principal); J44.1 Chronic obstructive pulmonary disease with (acute) exacerbation; R94.31 Abnormal electrocardiogram [ECG] [EKG]; F17.200 Nicotine dependence, unspecified, uncomplicated; Z79.899 Other long term (current) drug therapy

== ENCOUNTER 2021-11-28 10:28 | Emergency (ER) | payer OTHER ==
[~2021-11-28] VITALS: Ht 177.8 cm; Wt 118.2 kg
[~2021-11-28 10:28] MED LIST changes: +MOXI1TAB PO
[2021-11-28] MEDS ORDERED: FLUORESCEIN OPHTH 1 MG STRIP OU ONE (11:50)
[2021-11-28] MEDS ORDERED: TETRACAINE 0.5% OPHTH SOLN 4ML OU ONE (11:50)
[2021-11-28] MEDS ORDERED: ERYTHROMYCIN OPHTH OINT OD ONE (13:25)
[2021-11-28] MEDS ORDERED: ERYT5OIN25 OD (13:36)
[2021-11-28 14:07] VITALS: BP 127/76
== END 2021-11-28 14:12 | disposition home or self-care (01) ==
LOC: M ED 10:28
DX: H21.01 Hyphema, right eye (principal); H18.891 Other specified disorders of cornea, right eye; I10 Essential (primary) hypertension; F17.200 Nicotine dependence, unspecified, uncomplicated; Z98.84 Bariatric surgery status; Z79.51 Long term (current) use of inhaled steroids; Z79.899 Other long term (current) drug therapy

== ENCOUNTER → 2022-02-25 | Outpatient (REF) | payer MEDICARE, OTHER ==
[~2022-02-25] MED LIST changes: +ERYT5OIN25 OD
== END ==
LOC: M LAB REF 16:03
PROVIDERS: ATTEND Physician Assistant
DX: B34.9 Viral infection, unspecified (principal)

== ENCOUNTER → 2022-02-28 | Outpatient (CLI) | payer MEDICARE, OTHER | LOC: M CARPUL 14:01 | PROVIDERS: ATTEND Physician Assistant Medical | DX: R60.9 Edema, unspecified (principal) ==

== ENCOUNTER → 2022-03-17 | Outpatient (CLI) | payer MEDICARE, OTHER | LOC: M ADAMS 13:47 | PROVIDERS: ATTEND Physician Assistant Medical | DX: J06.9 Acute upper respiratory infection, unspecified (principal); R05.1 Acute cough ==

== ENCOUNTER → 2022-04-19 | Outpatient (REF) | payer MEDICARE, OTHER ==
[2022-04-19 14:49] LABS: BASO # 0.1 10^3/uL (0.0-0.2); BASO % 0.6 % (0.0-1.0); EOS # 0.2 10^3/uL (0.0-0.5); EOS % 2.8 % (0.0-3.0); HEMATOCRIT 43.9 % (42.0-52.0); LYMPH # 1.3 10^3/uL (1.5-5.0); LYMPH % 16.8 % (24.0-44.0); MEAN CORPUSCULAR HEMOGLOBIN 31.5 pg (27.0-33.0); MEAN CORPUSCULAR HGB CONC 31.9 g/dl (32.0-36.5); MEAN CORPUSCULAR VOLUME 98.9 fl (80.0-96.0); MONO # 0.5 10^3/uL (0.0-0.8); MONO % 6.8 % (2.0-8.0); NEUTROPHILS # 5.8 10^3/uL (1.5-8.5); NEUTROPHILS % 72.6 % (36.0-66.0); PLATELET COUNT, AUTOMATED 178 10^3/uL (150-450); RED BLOOD COUNT 4.44 10^6/uL (4.30-6.10)
[2022-04-19 15:10] LABS: ALBUMIN 3.7 G/DL (3.2-5.2); ALKALINE PHOSPHATASE 80 U/L (46-116); ALT/SGPT 28 U/L (7.0-40); AST/SGOT 31 U/L (<34); BILIRUBIN,TOTAL 0.7 MG/DL (0.3-1.2); BLOOD UREA NITROGEN 12 MG/DL (9-23); CALCIUM LEVEL 8.7 MG/DL (8.3-10.6); CARBON DIOXIDE LEVEL 28 MMOL/L (20-31); CHLORIDE LEVEL 110 MMOL/L (98-107); CHOLESTEROL LEVEL 133 MG/DL (<200); CHOLESTEROL RISK RATIO 1.94 (<5); CREATININE FOR GFR 0.79 MG/DL (0.70-1.30); GLOMERULAR FILTRATION RATE > 60.0 (>49); GLUCOSE, FASTING 93 MG/DL (74-106); HDL CHOLESTEROL 68.4 MG/DL (>40); NON-HDL-C 65 MG/DL; POTASSIUM SERUM 4.6 MMOL/L (3.5-5.1); SODIUM LEVEL 141 MMOL/L (136-145); TOTAL PROTEIN 6.5 G/DL (5.7-8.2); TRIGLYCERIDES LEVEL 53 MG/DL (<150)
[2022-04-19 15:11] LABS: THYROID STIMULATING HORMONE 28.077 uIU/ML (0.55-4.78); TOTAL 25(OH) VITAMIN D 40.8 NG/ML (20.0-100.0)
== END ==
LOC: M SFHCADAM 11:00
PROVIDERS: ATTEND Physician Assistant Medical
DX: K21.9 Gastro-esophageal reflux disease without esophagitis (principal); E89.0 Postprocedural hypothyroidism; F33.2 Major depressive disorder, recurrent severe without psychotic features; F17.218 Nicotine dependence, cigarettes, with other nicotine-induced disorders; Z79.899 Other long term (current) drug therapy

== ENCOUNTER → 2022-04-19 | Outpatient (CLI) | payer MEDICARE, OTHER | LOC: M ADAMS 11:03 | PROVIDERS: ATTEND Physician Assistant Medical | DX: J18.9 Pneumonia, unspecified organism (principal) ==

== ENCOUNTER → 2022-06-29 | Outpatient (REF) | payer MEDICARE, OTHER ==
[2022-06-29 17:06] LABS: THYROID STIMULATING HORMONE 3.796 uIU/ML (0.55-4.78)
[2022-06-29 17:07] LABS: FREE T4 1.38 NG/DL (0.89-1.76)
== END ==
LOC: M SFHCADAM 12:04
PROVIDERS: ATTEND Physician Assistant Medical
DX: E89.0 Postprocedural hypothyroidism (principal)

== ENCOUNTER → 2022-12-14 | Outpatient (CLI) | payer MEDICARE, OTHER ==
[~2022-12-14] MED LIST changes: +DICL100G10 TOP; -DICL1GEL3 TOP
== END ==
LOC: M WUC 11:26
PROVIDERS: ATTEND Physician Assistant
DX: S20.211A Contusion of right front wall of thorax, initial encounter (principal)

== ENCOUNTER → 2023-01-19 | Outpatient (REF) | payer MEDICARE, OTHER | LOC: M SFHCADAM 10:29 | PROVIDERS: ATTEND Physician Assistant Medical | DX: E89.0 Postprocedural hypothyroidism (principal); K21.9 Gastro-esophageal reflux disease without esophagitis; D50.9 Iron deficiency anemia, unspecified ==

== ENCOUNTER → 2023-01-25 | Outpatient (CLI) | payer MEDICARE, OTHER | LOC: M WUC 13:02 | PROVIDERS: ATTEND Nurse Practitioner Family | DX: M17.12 Unilateral primary osteoarthritis, left knee (principal); M77.32 Calcaneal spur, left foot ==

== ENCOUNTER → 2023-05-23 | Outpatient (REF) | payer MEDICARE, OTHER ==
[2023-05-23 17:41] LABS: BASO # 0.1 10^3/uL (0.0-0.2); EOS # 0.2 10^3/uL (0.0-0.5); EOS % 2.5 % (0.0-3.0); HEMATOCRIT 45.4 % (42.0-52.0); HEMOGLOBIN 15.4 g/dl (13.5-17.5); LYMPH # 1.9 10^3/uL (1.5-5.0); LYMPH % 23.6 % (24.0-44.0); MEAN CORPUSCULAR HEMOGLOBIN 32.6 pg (27.0-33.0); MEAN CORPUSCULAR HGB CONC 33.9 g/dl (32.0-36.5); MONO # 0.6 10^3/uL (0.0-0.8); MONO % 6.9 % (2.0-8.0); NEUTROPHILS # 5.3 10^3/uL (1.5-8.5); NEUTROPHILS % 65.9 % (36.0-66.0); PLATELET COUNT, AUTOMATED 169 10^3/uL (150-450); RED BLOOD COUNT 4.73 10^6/uL (4.30-6.10)
[2023-05-23 17:55] LABS: IRON (FE) 138 UG/DL (65-175); PERCENT SATURATION 49.3 % (19.7-50.0); THYROID STIMULATING HORMONE 37.077 uIU/ML (0.55-4.78); TOTAL IRON BINDING CAPACITY 280 UG/DL (250-425)
[2023-05-23 17:56] LABS: ALBUMIN 4.4 G/DL (3.2-5.2); ALKALINE PHOSPHATASE 78 U/L (46-116); ALT/SGPT 32 U/L (7.0-40); AST/SGOT 24 U/L (<34); BILIRUBIN,TOTAL 0.7 MG/DL (0.3-1.2); BLOOD UREA NITROGEN 17 MG/DL (9-23); CALCIUM LEVEL 9.1 MG/DL (8.3-10.6); CARBON DIOXIDE LEVEL 29 MMOL/L (20-31); CHLORIDE LEVEL 106 MMOL/L (98-107); CHOLESTEROL LEVEL 200 MG/DL (<200); CHOLESTEROL RISK RATIO 2.61 (<5); FERRITIN 95.8 NG/ML (10.5-307.3); GLOMERULAR FILTRATION RATE > 60.0 (>49); GLUCOSE, FASTING 85 MG/DL (74-106); HDL CHOLESTEROL 76.4 MG/DL (>40); LDL CHOLESTEROL 92.6 MG/DL (<100); NON-HDL-C 123.6 MG/DL; POTASSIUM SERUM 3.9 MMOL/L (3.5-5.1); SODIUM LEVEL 140 MMOL/L (136-145); TOTAL 25(OH) VITAMIN D 40.3 NG/ML (20.0-100.0); TOTAL PROTEIN 7.2 G/DL (5.7-8.2); TRIGLYCERIDES LEVEL 155 MG/DL (<150)
[2023-05-23 17:57] LABS: FREE T4 1.01 NG/DL (0.89-1.76)
[2023-05-23 18:10] LABS: HEMOGLOBIN A1c 5.1 % (4.0-6.0)
== END ==
LOC: M SFHCADAM 15:19
PROVIDERS: ATTEND Physician Assistant Medical
DX: E89.0 Postprocedural hypothyroidism (principal); K21.9 Gastro-esophageal reflux disease without esophagitis; D50.9 Iron deficiency anemia, unspecified; F33.2 Major depressive disorder, recurrent severe without psychotic features; Z79.899 Other long term (current) drug therapy

== ENCOUNTER → 2023-06-20 | Outpatient (CLI) | payer MEDICARE, OTHER | LOC: M ADAMS 09:39 | PROVIDERS: ATTEND Physician Assistant | DX: M19.079 Primary osteoarthritis, unspecified ankle and foot (principal); M77.31 Calcaneal spur, right foot ==

== ENCOUNTER → 2023-07-07 | Outpatient (REF) | payer MEDICARE, OTHER ==
[2023-07-07 15:25] LABS: THYROID STIMULATING HORMONE 9.15 uIU/ML (0.55-4.78)
[2023-07-07 15:27] LABS: FREE T4 1.42 NG/DL (0.89-1.76)
== END ==
LOC: M SFHCADAM 11:01
PROVIDERS: ATTEND Physician Assistant Medical
DX: E89.0 Postprocedural hypothyroidism (principal)

== ENCOUNTER → 2023-07-31 | Outpatient (REF) | payer MEDICARE, OTHER | LOC: M SFHCADAM 15:47 | PROVIDERS: ATTEND Physician Assistant Medical | DX: R05.1 Acute cough (principal) ==

== ENCOUNTER → 2023-11-21 | Outpatient (REF) | payer MEDICARE, OTHER ==
[~2023-11-21] MED LIST changes: -OXYC1CAP PO; +OXYC1CAP2 PO
[2023-11-21 18:01] LABS: ALBUMIN 4.1 G/DL (3.2-5.2); ALKALINE PHOSPHATASE 86 U/L (46-116); ALT/SGPT 45 U/L (7.0-40); AST/SGOT 22 U/L (<34); BILIRUBIN,TOTAL 0.8 MG/DL (0.3-1.2); BLOOD UREA NITROGEN 12 MG/DL (9-23); CALCIUM LEVEL 9.1 MG/DL (8.3-10.6); CARBON DIOXIDE LEVEL 27 MMOL/L (20-31); CHLORIDE LEVEL 109 MMOL/L (98-107); CHOLESTEROL LEVEL 170 MG/DL (<200); CHOLESTEROL RISK RATIO 2.64 (<5); CREATININE FOR GFR 0.75 MG/DL (0.70-1.30); FREE T4 1.15 NG/DL (0.89-1.76); GLOMERULAR FILTRATION RATE > 60.0 (>49); GLUCOSE, FASTING 85 MG/DL (74-106); HDL CHOLESTEROL 64.3 MG/DL (>40); LDL CHOLESTEROL 71.1 MG/DL (<100); NON-HDL-C 105.7 MG/DL; POTASSIUM SERUM 4.1 MMOL/L (3.5-5.1); SODIUM LEVEL 141 MMOL/L (136-145); THYROID STIMULATING HORMONE 6.913 uIU/ML (0.55-4.78); TOTAL PROTEIN 6.6 G/DL (5.7-8.2); TRIGLYCERIDES LEVEL 173 MG/DL (<150)
[2023-11-21 18:03] LABS: BASO # 0.1 10^3/uL (0.0-0.2); BASO % 1.2 % (0.0-1.0); EOS # 0.3 10^3/uL (0.0-0.5); EOS % 4.1 % (0.0-3.0); HEMATOCRIT 47.4 % (42.0-52.0); HEMOGLOBIN 15.5 g/dl (13.5-17.5); LYMPH # 1.6 10^3/uL (1.5-5.0); LYMPH % 24.4 % (24.0-44.0); MEAN CORPUSCULAR HEMOGLOBIN 31.7 pg (27.0-33.0); MEAN CORPUSCULAR HGB CONC 32.7 g/dl (32.0-36.5); MEAN CORPUSCULAR VOLUME 96.9 fl (80.0-96.0); MONO # 0.5 10^3/uL (0.0-0.8); MONO % 8.1 % (2.0-8.0); NEUTROPHILS # 4.1 10^3/uL (1.5-8.5); PLATELET COUNT, AUTOMATED 196 10^3/uL (150-450); RED BLOOD COUNT 4.89 10^6/uL (4.30-6.10); TOTAL 25(OH) VITAMIN D 33.8 NG/ML (20.0-100.0); WHITE BLOOD COUNT 6.6 10^3/uL (4.0-10.0)
== END ==
LOC: M SFHCADAM 14:39
PROVIDERS: ATTEND Physician Assistant Medical
DX: G47.33 Obstructive sleep apnea (adult) (pediatric) (principal); E89.0 Postprocedural hypothyroidism; D50.9 Iron deficiency anemia, unspecified; F17.218 Nicotine dependence, cigarettes, with other nicotine-induced disorders; Z79.899 Other long term (current) drug therapy

== ENCOUNTER → 2024-02-13 | Outpatient (REF) | payer MEDICARE, OTHER ==
[~2024-02-13] MED LIST changes: +GABA-1172 PO; -GABA-282 PO
== END ==
LOC: M SFHCADAM 16:56
PROVIDERS: ATTEND Physician Assistant Medical
DX: R05.1 Acute cough (principal)

== ENCOUNTER 2024-04-30 12:01 | Emergency (ER) | payer MEDICARE, OTHER ==
[~2024-04-30] VITALS: Ht 180.3 cm; Wt 128.2 kg
[2024-04-30 12:41] LABS: BASO # 0.1 10^3/uL (0.0-0.2); BASO % 0.8 % (0.0-1.0); EOS # 0.2 10^3/uL (0.0-0.5); EOS % 2.7 % (0.0-3.0); HEMATOCRIT 44.7 % (42.0-52.0); HEMOGLOBIN 15.3 g/dl (13.5-17.5); LYMPH # 1.6 10^3/uL (1.5-5.0); LYMPH % 27.1 % (24.0-44.0); MEAN CORPUSCULAR HEMOGLOBIN 32.2 pg (27.0-33.0); MEAN CORPUSCULAR HGB CONC 34.2 g/dl (32.0-36.5); MEAN CORPUSCULAR VOLUME 94.1 fl (80.0-96.0); MONO # 0.4 10^3/uL (0.0-0.8); MONO % 7.2 % (2.0-8.0); NEUTROPHILS # 3.7 10^3/uL (1.5-8.5); NEUTROPHILS % 61.9 % (36.0-66.0); PLATELET COUNT, AUTOMATED 165 10^3/uL (150-450); RED BLOOD COUNT 4.75 10^6/uL (4.30-6.10)
[2024-04-30] MEDS: IPRATROPIUM 0.5MG/ALBUTEROL 2.5MG INH SOL UD 3ML (DUONEB) NEB ONE (12:47)
[2024-04-30] MEDS: dexAMETHasone 20MG/5ML VIAL IV ONE (12:51)
[2024-04-30 12:53] LABS: INR 1.01; PROTHROMBIN TIME 13.6 SECONDS (12.5-14.5)
[2024-04-30 13:10] LABS: VENOUS BASE EXCESS 2.2 (-2.0-2.0); VENOUS HCO3 25.6 MMOL/L (23.0-27.0); VENOUS O2 SATURATION 91.5 % (60.0-80.0); VENOUS PARTIAL PRESSURE O2 53.3 mmHg (30.0-50.0); VENOUS PH 7.469 UNITS (7.330-7.430); VENOUS STANDARD HCO3 26.3 MMOL/L; VENOUS TOTAL CO2 26.7 MMOL/L (24.0-28.0)
[2024-04-30 13:12] LABS: ALBUMIN 4.1 G/DL (3.2-5.2); BILIRUBIN,DIRECT 0.2 MG/DL (<0.4); BILIRUBIN,TOTAL 0.6 MG/DL (0.3-1.2); TOTAL PROTEIN 7.2 G/DL (5.7-8.2)
[2024-04-30 13:13] LABS: MB/CK RELATIVE INDEX 0.75 (< OR =4)
[2024-04-30 13:46] VITALS: TEMP 97.4
[2024-04-30] MEDS: cefTRIAXone SOD 1 GM in DEXTROSE 5% (D5W) ADV/MINI-BAG 50 ML IV ONE (13:46)
[2024-04-30] MEDS: AZITHROMYCIN 250MG TABLET PO ONE (13:46)
[2024-04-30] MEDS ORDERED: AUGM500T34 PO (14:44)
[2024-04-30] MEDS ORDERED: AZIT500T5 PO (14:46)
[2024-04-30 15:15] VITALS: BP 129/83
[2024-04-30 15:16] VITALS: O2SAT 92
== END 2024-04-30 15:49 | disposition home or self-care (01) ==
LOC: M ED 12:01
DX: J18.9 Pneumonia, unspecified organism (principal); J44.9 Chronic obstructive pulmonary disease, unspecified; F43.10 Post-traumatic stress disorder, unspecified; F41.9 Anxiety disorder, unspecified; F32.A Depression, unspecified; Z79.1 Long term (current) use of non-steroidal anti-inflammatories (NSAID); Z79.52 Long term (current) use of systemic steroids; Z79.01 Long term (current) use of anticoagulants; Z79.899 Other long term (current) drug therapy; Z91.048 Other nonmedicinal substance allergy status; Z98.84 Bariatric surgery status; Z87.442 Personal history of urinary calculi
CPT/HCPCS: 71045; 80047; 80076; 82550; 82553; 82803; 83690; 83880; 84484; 85025; 85610; 93005; 93041; 94640; 94760; 96365; 96375; 99285; J0696; J1100

== ENCOUNTER 2024-05-07 11:16 | Observation (INO) | payer MEDICARE, OTHER ==
[~2024-05-07] VITALS: Ht 180.3 cm; Wt 125.9 kg
[~2024-05-07 11:16] MED LIST changes: +AUGM500T34 PO; +AZIT500T5 PO
[2024-05-07 14:00] LABS: BASO # 0.1 10^3/uL (0.0-0.2); BASO % 0.9 % (0.0-1.0); EOS # 0.2 10^3/uL (0.0-0.5); EOS % 3.3 % (0.0-3.0); HEMATOCRIT 46.6 % (42.0-52.0); HEMOGLOBIN 15.9 g/dl (13.5-17.5); LYMPH # 1.6 10^3/uL (1.5-5.0); LYMPH % 27.7 % (24.0-44.0); MEAN CORPUSCULAR HEMOGLOBIN 32.6 pg (27.0-33.0); MEAN CORPUSCULAR HGB CONC 34.1 g/dl (32.0-36.5); MEAN CORPUSCULAR VOLUME 95.7 fl (80.0-96.0); MONO # 0.3 10^3/uL (0.0-0.8); MONO % 5.8 % (2.0-8.0); NEUTROPHILS # 3.6 10^3/uL (1.5-8.5); PLATELET COUNT, AUTOMATED 151 10^3/uL (150-450); RED BLOOD COUNT 4.87 10^6/uL (4.30-6.10); WHITE BLOOD COUNT 5.7 10^3/uL (4.0-10.0)
[2024-05-07 14:30] LABS: BLOOD UREA NITROGEN 15 MG/DL (9-23); CARBON DIOXIDE LEVEL 30 MMOL/L (20-31); CHLORIDE LEVEL 108 MMOL/L (98-107); CK-MB VALUE MASS < 1.0 NG/ML (<3.6); CREATININE FOR GFR 0.77 MG/DL (0.70-1.30); GLOMERULAR FILTRATION RATE > 60.0 (>49); GLUCOSE, FASTING 95 MG/DL (74-106); POTASSIUM SERUM 4.4 MMOL/L (3.5-5.1); SODIUM LEVEL 143 MMOL/L (136-145)
[2024-05-07 14:33] LABS: THYROID STIMULATING HORMONE 22.959 uIU/ML (0.55-4.78)
[2024-05-07 14:37] LABS: CPK CREATINE PHOSPHOKINASE 72 U/L (46-171); MB/CK RELATIVE INDEX 1.38 (< OR =4)
[2024-05-07] MEDS ORDERED: ISOVUE-370 76% 100ML VIAL As Ordered ONE (14:40)
[2024-05-07] MEDS: BENZONATATE 100MG CAPSULE PO ONE (14:45)
[2024-05-07] MEDS: cefTRIAXone SOD 1 GM in DEXTROSE 5% (D5W) ADV/MINI-BAG 50 ML IV ONE ×2 (15:10→17:42)
[2024-05-07 15:59] LABS: FREE T4 1.09 NG/DL (0.89-1.76)
[2024-05-07] MEDS ORDERED: CEFD1CAP9 PO (16:02)
[2024-05-07] MEDS ORDERED: DOXY-440 PO (16:02)
[2024-05-07] MEDS ORDERED: BACI1CAP PO (16:02)
[2024-05-07] MEDS ORDERED: VENTAER INH (16:02)
[2024-05-07] MEDS ORDERED: LEVO137T2 PO (16:21)
[2024-05-07] MEDS ORDERED: PRES10CA2 PO (16:24)
[2024-05-07] MEDS ORDERED: LORA-622 PO (16:24)
[2024-05-07] MEDS ORDERED: HOME MED LIST COMPLETE! XX SCH (16:25)
[2024-05-07 17:17] VITALS: BP 149/87; TEMP 97.2; O2SAT 95
[2024-05-07 17:28] LABS: C REACTIVE PROTEIN QUANTITATIV < 0.50 MG/DL (<1.0)
[2024-05-07 17:33] LABS: FREE T3 2.5 PG/ML (2.3-4.2)
[2024-05-07 17:35] LABS: PROCALCITONIN <0.04 ng/ml
[2024-05-07 17:36] LABS: LITHIUM LEVEL 0.43 MMOL/L (1.0-1.20)
[2024-05-07] MEDS ORDERED: MAALOX 30 ML SUSP *UDC PO PRN (18:00)
[2024-05-07] MEDS ORDERED: MECLIZINE 12.5 MG TAB PO PRN (19:15)
[2024-05-07] MEDS ORDERED: MECL-136 PO (19:39)
[2024-05-07] MEDS ORDERED: NICOTINE POLACRILEX 2 MG GUM PO PRN (19:40)
[2024-05-07 20:00] VITALS: BP 131/84; TEMP 96.6; O2SAT 93
[2024-05-07 20:27] LABS: CK-MB VALUE MASS < 1.0 NG/ML (<3.6); HEMOGLOBIN A1c 5.3 % (4.0-6.0)
[2024-05-07 20:31] LABS: CPK CREATINE PHOSPHOKINASE 67 U/L (46-171); MB/CK RELATIVE INDEX 1.49 (< OR =4)
[2024-05-07] MEDS: NICOTINE 14 MG/24 HR TRANSDERMAL TD SCH (21:05)
[2024-05-07] MEDS: SUCRALFATE SUSP 1GM/10ML UD PO SCH (21:05)
[2024-05-07] MEDS: DOCUSATE SODIUM 100MG CAPSULE PO SCH (21:05)
[2024-05-07] MEDS: APIXABAN 2.5 MG TAB (ELIQUIS) PO SCH (21:06)
[2024-05-07] MEDS: DOXYCYCLINE HYCLATE 100MG TABLET PO SCH (21:06)
[2024-05-07] MEDS: LITHIUM CARBONATE 300 MG CAP PO SCH (21:06)
[2024-05-08 05:15] VITALS: BP 131/81; TEMP 97.2; O2SAT 96
[2024-05-08] MEDS: LEVOTHYROXINE 150MCG TABLET (0.15MG) PO SCH (05:46)
[2024-05-08] MEDS: LEVOTHYROXINE 137MCG TABLET (0.137MG) PO SCH (05:46)
[2024-05-08 06:09] LABS: BASO # 0.1 10^3/uL (0.0-0.2); BASO % 0.8 % (0.0-1.0); EOS # 0.3 10^3/uL (0.0-0.5); EOS % 4.4 % (0.0-3.0); HEMATOCRIT 42.1 % (42.0-52.0); HEMOGLOBIN 14.3 g/dl (13.5-17.5); LYMPH # 2.1 10^3/uL (1.5-5.0); LYMPH % 33.5 % (24.0-44.0); MEAN CORPUSCULAR VOLUME 94.2 fl (80.0-96.0); MONO # 0.4 10^3/uL (0.0-0.8); NEUTROPHILS # 3.5 10^3/uL (1.5-8.5); PLATELET COUNT, AUTOMATED 137 10^3/uL (150-450); RED BLOOD COUNT 4.47 10^6/uL (4.30-6.10); WHITE BLOOD COUNT 6.3 10^3/uL (4.0-10.0)
[2024-05-08 06:28] LABS: CK-MB VALUE MASS < 1.0 NG/ML (<3.6)
[2024-05-08 06:30] LABS: BLOOD UREA NITROGEN 14 MG/DL (9-23); CALCIUM LEVEL 8.6 MG/DL (8.3-10.6); CARBON DIOXIDE LEVEL 26 MMOL/L (20-31); CHLORIDE LEVEL 109 MMOL/L (98-107); CHOLESTEROL LEVEL 157 MG/DL (<200); CHOLESTEROL RISK RATIO 2.56 (<5); CPK CREATINE PHOSPHOKINASE 47 U/L (46-171); CREATININE FOR GFR 0.65 MG/DL (0.70-1.30); GLOMERULAR FILTRATION RATE > 60.0 (>49); GLUCOSE, FASTING 106 MG/DL (74-106); HDL CHOLESTEROL 61.3 MG/DL (>40); LDL CHOLESTEROL 70.5 MG/DL (<100); MAGNESIUM LEVEL 2.2 MG/DL (1.8-2.4); MB/CK RELATIVE INDEX 2.12 (< OR =4); NON-HDL-C 95.7 MG/DL; POTASSIUM SERUM 3.9 MMOL/L (3.5-5.1); SODIUM LEVEL 143 MMOL/L (136-145); TRIGLYCERIDES LEVEL 126 MG/DL (<150)
[2024-05-08] MEDS: PANTOPRAZOLE 40MG TAB (PROTONIX) PO SCH (07:55)
[2024-05-08] MEDS: FOLIC ACID 1MG TAB PO SCH (07:55)
[2024-05-08] MEDS: VITAMIN D 1,000 INTERNATIONAL UNITS TABLET PO SCH (07:55)
[2024-05-08] MEDS: MULTIVITAMINS/MINERALS THERAP 1 TAB PO SCH (07:55)
[2024-05-08] MEDS: OXcarbazepine 300 MG TAB PO SCH (07:55)
[2024-05-08] MEDS: DULoxetine 30MG CAPSULE (CYMBALTA) PO SCH (07:55)
[2024-05-08] MEDS: THIAMINE 100 MG TAB PO SCH (07:56)
[2024-05-08] MEDS: FERROUS GLUCONATE 324 MG TAB PO SCH (07:56)
[2024-05-08] MEDS: FUROSEMIDE 40 MG TAB PO SCH (07:56)
[2024-05-08] MEDS ORDERED: OMEPRAZOLE 20MG CAP PO SCH (09:00)
[2024-05-08] MEDS ORDERED: MECL-136 PO (09:37)
[2024-05-08] MEDS ORDERED: ZYRTTAB8 PO (10:25)
[2024-05-08] MEDS ORDERED: MUCI1TAB16 PO (10:25)
[2024-05-08] MEDS: cefTRIAXone SOD 2 GM in DEXTROSE 5% (D5W) ADV/MINI-BAG 50 ML IV SCH (10:33)
[2024-05-08] MEDS ORDERED: CEFD300CAP PO (11:08)
[2024-05-08] MEDS ORDERED: ALBU8.5H INH (11:11)
[2024-05-08] MEDS ORDERED: FLON1SPR NARES (11:11)
[2024-05-08] MEDS ORDERED: AFRISPR3 (11:11)
[2024-05-11 18:44] LABS: URINE STREP PNEUMONIAE ANTIGEN NOT DETECTED (NOT DETECT)
[2024-05-12 17:31] LABS: MYCOPLASMA PNEUMONIAE IGG 2.74 (<=0.90)
== END 2024-05-08 11:24 | disposition home or self-care (01) ==
LOC: M ED 11:16 → M ED INP 11:17 → M MSPAV 17:05
PROVIDERS: ADMIT General Practice; ATTEND General Practice
DX: J15.9 Unspecified bacterial pneumonia (principal); W19.XXXA Unspecified fall, initial encounter; S40.022A Contusion of left upper arm, initial encounter; R26.81 Unsteadiness on feet; R06.02 Shortness of breath; F43.10 Post-traumatic stress disorder, unspecified; F32.A Depression, unspecified; R45.851 Suicidal ideations; K21.9 Gastro-esophageal reflux disease without esophagitis; Z86.711 Personal history of pulmonary embolism; J44.9 Chronic obstructive pulmonary disease, unspecified; E66.9 Obesity, unspecified; E55.9 Vitamin D deficiency, unspecified; I10 Essential (primary) hypertension; G47.33 Obstructive sleep apnea (adult) (pediatric); F17.218 Nicotine dependence, cigarettes, with other nicotine-induced disorders
CPT/HCPCS: 36415; 70450; 71046; 71275; 72125; 80048; 80061; 80178; 82550; 82553; 83036; 83735; 83880; 84145; 84439; 84443; 84481; 84484; 85025; 85652; 86140; 86738; 87040; 87449; 87486; 87581; 87633; 87798; 87899; 93005; 94660; 96365; 96366; 97161; 99285; G0378; J0696; Q9967

== ENCOUNTER → 2024-06-26 | Outpatient (CLI) | payer MEDICARE, OTHER ==
[~2024-06-26] MED LIST changes: +AFRISPR3; +ALBU8.5H INH; +BACI1CAP PO; +CEFD1CAP9 PO; +CEFD300CAP PO; +DOXY-440 PO; +FLON1SPR NARES; +LEVO137T2 PO; +LORA-622 PO; +MECL-136 PO; +MUCI1TAB16 PO; +PRES10CA2 PO; +ZYRTTAB8 PO
== END ==
LOC: M ADAMS 09:01
PROVIDERS: ATTEND Physician Assistant Medical
DX: J18.9 Pneumonia, unspecified organism (principal)

== ENCOUNTER 2024-11-12 14:11 | Inpatient (IN) | payer MEDICARE, OTHER ==
[~2024-11-12] VITALS: Ht 180.3 cm; Wt 118.5 kg
[~2024-11-12 14:11] MED LIST changes: +LORA-1164 PO; -LORA-622 PO; +PRED-1142 PO; -PRED1TABL PO
[2024-11-12 15:29] LABS: BASO # 0.0 10^3/uL (0.0-0.2); BASO % 0.5 % (0.0-1.0); EOS # 0.3 10^3/uL (0.0-0.5); EOS % 3.4 % (0.0-3.0); LYMPH # 1.6 10^3/uL (1.5-5.0); LYMPH % 21.3 % (24.0-44.0); MONO # 0.6 10^3/uL (0.0-0.8); MONO % 7.9 % (2.0-8.0); NEUTROPHILS # 4.9 10^3/uL (1.5-8.5); NEUTROPHILS % 66.5 % (36.0-66.0); PLATELET COUNT, AUTOMATED 152 10^3/uL (150-450)
[2024-11-12 16:00] LABS: ALT/SGPT 25 U/L (7.0-40); AST/SGOT 47 U/L (<34); CALCIUM LEVEL 8.9 MG/DL (8.3-10.6); CARBON DIOXIDE LEVEL 26 MMOL/L (20-31); CHLORIDE LEVEL 110 MMOL/L (98-107); CK-MB VALUE MASS 1.8 NG/ML (<3.6); CPK CREATINE PHOSPHOKINASE 107 U/L (46-171); CREATININE FOR GFR 0.69 MG/DL (0.70-1.30); GLOMERULAR FILTRATION RATE > 90.0 (>49); MB/CK RELATIVE INDEX 1.68 (< OR =4); POTASSIUM SERUM 4.9 MMOL/L (3.5-5.1); SODIUM LEVEL 147 MMOL/L (136-145)
[2024-11-12] MEDS ORDERED: ISOVUE-370 76% 100 ML VIAL As Ordered ONE (16:09)
[2024-11-12 17:19] LABS: CK-MB VALUE MASS 1.6 NG/ML (<3.6)
[2024-11-12 17:24] LABS: CPK CREATINE PHOSPHOKINASE 80.0 U/L (46-171); MB/CK RELATIVE INDEX 2.0 (< OR =4)
[2024-11-12 18:40] LABS: LITHIUM LEVEL 0.11 MMOL/L (1.0-1.20)
[2024-11-12 20:12] LABS: INR 0.95
[2024-11-12] MEDS ORDERED: ALBUTEROL SULFATE 2.5 MG/0.5 ML INH CONCENTRATE NEB SOLN NEB PRN (20:25)
[2024-11-12] MEDS ORDERED: ENOXAPARIN 80 MG/0.8 ML SYRINGE (J1650 PER 10MG) SC SCH (20:25)
[2024-11-12] MEDS ORDERED: LIOT5TAB6 PO (20:34)
[2024-11-12] MEDS ORDERED: HOME MED LIST COMPLETE! XX SCH (20:40)
[2024-11-12] MEDS: DOCUSATE SODIUM 100 MG CAPSULE PO SCH (21:14)
[2024-11-12] MEDS: UNRESOLVED CLARIFICATION ENTRY XX STA (21:14)
[2024-11-12] MEDS: ENOXAPARIN 120 MG/0.8 ML SYRINGE SC SCH (21:58)
[2024-11-12] MEDS: LITHIUM CARBONATE 300 MG CAP PO SCH (21:58)
[2024-11-12] MEDS: FUROSEMIDE 40 MG/4 ML VIAL IV ONE (21:59)
[2024-11-12] MEDS: IPRATROPIUM 0.5 MG/ALBUTEROL 2.5 MG INH SOL UD 3 ML NEB SCH (23:13)
[2024-11-13 06:39] LABS: BASO # 0.0 10^3/uL (0.0-0.2); BASO % 0.7 % (0.0-1.0); EOS # 0.3 10^3/uL (0.0-0.5); EOS % 4.7 % (0.0-3.0); LYMPH # 1.5 10^3/uL (1.5-5.0); LYMPH % 27.1 % (24.0-44.0); MONO # 0.4 10^3/uL (0.0-0.8); MONO % 7.2 % (2.0-8.0); NEUTROPHILS # 3.3 10^3/uL (1.5-8.5); NEUTROPHILS % 59.9 % (36.0-66.0); PLATELET COUNT, AUTOMATED 137 10^3/uL (150-450)
[2024-11-13] MEDS: LEVOTHYROXINE 150 MCG TABLET (0.15 MG) PO SCH (06:50)
[2024-11-13 07:07] LABS: CALCIUM LEVEL 8.8 MG/DL (8.3-10.6); CARBON DIOXIDE LEVEL 26 MMOL/L (20-31); CHLORIDE LEVEL 110 MMOL/L (98-107); CREATININE FOR GFR 0.75 MG/DL (0.70-1.30); GLOMERULAR FILTRATION RATE > 90.0 (>49); POTASSIUM SERUM 3.8 MMOL/L (3.5-5.1); SODIUM LEVEL 146 MMOL/L (136-145)
[2024-11-13] MEDS: FERROUS GLUCONATE 324 MG TAB PO SCH (09:00)
[2024-11-13] MEDS: LORATADINE 10 MG TAB PO SCH (09:09)
[2024-11-13] MEDS: PANTOPRAZOLE 40MG TAB PO SCH (09:10)
[2024-11-13] MEDS: FUROSEMIDE 40 MG TAB PO SCH (09:10)
[2024-11-13 11:32] LABS: FREE T4 1.22 NG/DL (0.89-1.76)
[2024-11-13 16:14] VITALS: BP 163/74; TEMP 97; O2SAT 94
[2024-11-13 19:58] VITALS: BP 136/82; TEMP 97.5; O2SAT 96
[2024-11-13] MEDS ORDERED: LIOTHYRONINE 25 MCG TAB PO SCH (21:00)
[2024-11-13] MEDS: ACETAMINOPHEN 325 MG TAB PO PRN (21:17)
[2024-11-14] VITALS (8 sets, daily range): BP systolic 122–150; BP diastolic 66–84; TEMP 97–98.4; O2SAT 91–96
[2024-11-14 09:00] LABS: BASO # 0.0 10^3/uL (0.0-0.2); BASO % 0.6 % (0.0-1.0); EOS # 0.2 10^3/uL (0.0-0.5); EOS % 3.6 % (0.0-3.0); LYMPH # 1.4 10^3/uL (1.5-5.0); LYMPH % 26.9 % (24.0-44.0); MONO # 0.3 10^3/uL (0.0-0.8); MONO % 5.8 % (2.0-8.0); NEUTROPHILS # 3.3 10^3/uL (1.5-8.5); NEUTROPHILS % 62.9 % (36.0-66.0); PLATELET COUNT, AUTOMATED 147 10^3/uL (150-450)
[2024-11-14 09:26] LABS: CALCIUM LEVEL 8.6 MG/DL (8.3-10.6); CARBON DIOXIDE LEVEL 30 MMOL/L (20-31); CHLORIDE LEVEL 108 MMOL/L (98-107); CREATININE FOR GFR 0.65 MG/DL (0.70-1.30); GLOMERULAR FILTRATION RATE > 90.0 (>49); POTASSIUM SERUM 3.7 MMOL/L (3.5-5.1); SODIUM LEVEL 146 MMOL/L (136-145)
[2024-11-14 10:25] LABS: INR 0.96
[2024-11-14] MEDS: WARFARIN SOD 5MG TAB PO SCH (17:03)
[2024-11-14] MEDS ORDERED: PILL CUTTER 1 EACH XX PRN (18:15)
[2024-11-15 01:25] LABS: CARDIOLIPIN IGA ANTIBODY < 2.0 APL-U/mL (<20.0); CARDIOLIPIN IGG ANTIBODY < 2.0 GPL-U/mL (<20.0); CARDIOLIPIN IGM ANTIBODY < 2.0 MPL-U/mL (<20.0)
[2024-11-15 03:10] VITALS: BP 129/69; TEMP 97.2; O2SAT 99
[2024-11-15] MEDS: LIOTHYRONINE SODIUM 5 MCG PO SCH (06:00)
[2024-11-15 06:31] LABS: BASO # 0.0 10^3/uL (0.0-0.2); BASO % 0.6 % (0.0-1.0); EOS # 0.2 10^3/uL (0.0-0.5); EOS % 3.4 % (0.0-3.0); LYMPH # 1.8 10^3/uL (1.5-5.0); LYMPH % 26.8 % (24.0-44.0); MONO # 0.4 10^3/uL (0.0-0.8); MONO % 6.4 % (2.0-8.0); NEUTROPHILS # 4.1 10^3/uL (1.5-8.5); NEUTROPHILS % 62.5 % (36.0-66.0); PLATELET COUNT, AUTOMATED 136 10^3/uL (150-450)
[2024-11-15 06:45] LABS: INR 1.01
[2024-11-15 06:57] LABS: CALCIUM LEVEL 8.1 MG/DL (8.3-10.6); CARBON DIOXIDE LEVEL 27 MMOL/L (20-31); CHLORIDE LEVEL 110 MMOL/L (98-107); CREATININE FOR GFR 0.63 MG/DL (0.70-1.30); GLOMERULAR FILTRATION RATE > 90.0 (>49); POTASSIUM SERUM 3.7 MMOL/L (3.5-5.1); SODIUM LEVEL 145 MMOL/L (136-145)
[2024-11-15] MEDS ORDERED: LOVE0.01 SC (11:00)
[2024-11-15] MEDS ORDERED: JANT5TAB PO (11:00)
[2024-11-17 00:30] LABS: PROTEIN C FUNCTIONAL ACTIVITY 115 % normal (70-180); PROTEIN S FUNCTIONAL ACTIVITY 126 % normal (70-150)
[2024-11-17 17:03] LABS: PHOSPHOLIPIDS LEVEL 214 mg/dL (151-264)
== END 2024-11-15 13:45 | disposition home or self-care (01) | DRG 176 ==
LOC: M ED 14:11 → M ED INP 20:21 → M PCU 11-13 16:06 → M MSPAV 11-14 21:14
PROVIDERS: ADMIT Internal Medicine Nephrology; ATTEND Internal Medicine
DX: I26.99 Other pulmonary embolism without acute cor pulmonale (principal); J98.11 Atelectasis; I50.30 Unspecified diastolic (congestive) heart failure; D68.59 Other primary thrombophilia; E87.0 Hyperosmolality and hypernatremia; E66.01 Morbid (severe) obesity due to excess calories; I10 Essential (primary) hypertension; J44.9 Chronic obstructive pulmonary disease, unspecified; E89.0 Postprocedural hypothyroidism; I27.20 Pulmonary hypertension, unspecified; R91.1 Solitary pulmonary nodule; M48.061 Spinal stenosis, lumbar region without neurogenic claudication; K22.70 Barrett's esophagus without dysplasia; E87.70 Fluid overload, unspecified; F17.200 Nicotine dependence, unspecified, uncomplicated; K21.9 Gastro-esophageal reflux disease without esophagitis; G47.33 Obstructive sleep apnea (adult) (pediatric); M85.80 Other specified disorders of bone density and structure, unspecified site; I11.0 Hypertensive heart disease with heart failure; F31.9 Bipolar disorder, unspecified; K44.9 Diaphragmatic hernia without obstruction or gangrene; Z79.01 Long term (current) use of anticoagulants; F39 Unspecified mood [affective] disorder; Z79.899 Other long term (current) drug therapy; Z91.040 Latex allergy status; Z79.890 Hormone replacement therapy; Z85.850 Personal history of malignant neoplasm of thyroid

== ENCOUNTER → 2024-12-12 | Outpatient (REF) | payer MEDICARE, OTHER ==
[~2024-12-12] MED LIST changes: +JANT5TAB PO; +LIOT5TAB6 PO; +LOVE0.01 SC; +WARF-18; +WARF-23
[2024-12-12 13:04] LABS: INR 1.43
== END ==
LOC: M SFHCADAM 11:04
PROVIDERS: ATTEND Physician Assistant Medical
DX: Z86.711 Personal history of pulmonary embolism (principal)

== ENCOUNTER 2024-12-14 08:22 | Emergency (ER) | payer MEDICARE, OTHER ==
[~2024-12-14] VITALS: Ht 180.3 cm; Wt 123.2 kg
[~2024-12-14 08:22] MED LIST changes: -WARF-23; +WARF-23 PO
[2024-12-14 10:30] VITALS: BP 152/93
[2024-12-14 10:42] VITALS: O2SAT 99
[2024-12-14 11:01] VITALS: TEMP 97.6
== END 2024-12-14 11:14 | disposition home or self-care (01) ==
LOC: M ED 08:22
DX: S50.01XA Contusion of right elbow, initial encounter (principal); S90.32XA Contusion of left foot, initial encounter; S20.211A Contusion of right front wall of thorax, initial encounter; W10.8XXA Fall (on) (from) other stairs and steps, initial encounter; M25.422 Effusion, left elbow; M19.072 Primary osteoarthritis, left ankle and foot; M77.32 Calcaneal spur, left foot; Y92.009 Unspecified place in unspecified non-institutional (private) residence as the place of occurrence of the external cause; Y93.89 Activity, other specified; Y99.9 Unspecified external cause status; Z91.040 Latex allergy status; Z91.048 Other nonmedicinal substance allergy status; Z79.01 Long term (current) use of anticoagulants; Z79.52 Long term (current) use of systemic steroids; Z79.899 Other long term (current) drug therapy

== ENCOUNTER 2024-12-18 12:38 | Emergency (ER) | payer MEDICARE, OTHER ==
[~2024-12-18] VITALS: Ht 182.9 cm; Wt 123.8 kg
[2024-12-18 13:30] LABS: BASO # 0.0 10^3/uL (0.0-0.2); BASO % 0.4 % (0.0-1.0); EOS # 0.3 10^3/uL (0.0-0.5); EOS % 3.7 % (0.0-3.0); LYMPH # 1.5 10^3/uL (1.5-5.0); LYMPH % 19.7 % (24.0-44.0); MONO # 0.4 10^3/uL (0.0-0.8); MONO % 5.3 % (2.0-8.0); NEUTROPHILS # 5.4 10^3/uL (1.5-8.5); NEUTROPHILS % 70.2 % (36.0-66.0); PLATELET COUNT, AUTOMATED 193 10^3/uL (150-450)
[2024-12-18 13:33] LABS: RBC, URINE AUTO RFX 50-100 /HPF (0-3); WBC, URINE AUTO RFX 0-3 /HPF (0-3)
[2024-12-18 13:45] LABS: INR 2.13
[2024-12-18 14:13] LABS: CALCIUM LEVEL 8.7 MG/DL (8.3-10.6); CARBON DIOXIDE LEVEL 28 MMOL/L (20-31); CHLORIDE LEVEL 105 MMOL/L (98-107); CREATININE FOR GFR 0.61 MG/DL (0.70-1.30); GLOMERULAR FILTRATION RATE > 90.0 (>42); POTASSIUM SERUM 3.7 MMOL/L (3.5-5.1); SODIUM LEVEL 145 MMOL/L (136-145)
[2024-12-18] MEDS ORDERED: ISOVUE-370 76% 100 ML VIAL As Ordered ONE (18:20)
[2024-12-18] MEDS: ACETAMINOPHEN 500 MG TAB PO ONE (19:42)
[2024-12-18 20:59] VITALS: BP 158/92; TEMP 98.2; O2SAT 96
[2024-12-26 06:43] LABS: KETONE, URINE AUTO RFX NEGATIVE (NEGATIVE); NITRITE, URINE AUTO RFX NEGATIVE (NEGATIVE)
[2024-12-26 06:44] LABS: LEUKOCYTE ESTERASE UR AUTO RFX TRACE (NEGATIVE)
== END 2024-12-18 21:13 | disposition home or self-care (01) ==
LOC: M ED 12:38
DX: R31.0 Gross hematuria (principal); N28.1 Cyst of kidney, acquired; K76.0 Fatty (change of) liver, not elsewhere classified; C73 Malignant neoplasm of thyroid gland; Z98.84 Bariatric surgery status; Z79.52 Long term (current) use of systemic steroids; Z79.899 Other long term (current) drug therapy; Z79.01 Long term (current) use of anticoagulants; Z91.040 Latex allergy status; Z91.048 Other nonmedicinal substance allergy status; Z86.711 Personal history of pulmonary embolism
CPT/HCPCS: 36415; 74177; 80048; 81001; 85025; 85610; 87086; 99285; G0463; Q9967

== ENCOUNTER → 2024-12-23 | Outpatient (REF) | payer MEDICARE, OTHER ==
[2024-12-23 14:12] LABS: BASO # 0.0 10^3/uL (0.0-0.2); BASO % 0.6 % (0.0-1.0); EOS # 0.3 10^3/uL (0.0-0.5); EOS % 4.5 % (0.0-3.0); LYMPH # 1.4 10^3/uL (1.5-5.0); LYMPH % 19.9 % (24.0-44.0); MONO # 0.5 10^3/uL (0.0-0.8); MONO % 6.3 % (2.0-8.0); NEUTROPHILS # 4.9 10^3/uL (1.5-8.5); NEUTROPHILS % 68.4 % (36.0-66.0); PLATELET COUNT, AUTOMATED 256 10^3/uL (150-450)
[2024-12-23 14:23] LABS: ERYTHROCYTE SEDIMENTATION RATE 11 mm/hr (0-20)
== END ==
LOC: M SFHCADAM 10:19
PROVIDERS: ATTEND Physician Assistant Medical
DX: L03.116 Cellulitis of left lower limb (principal)

== ENCOUNTER → 2025-01-08 | Outpatient (CLI) | payer MEDICARE, OTHER ==
[~2025-01-08] MED LIST changes: -IBUP-1022 PO; +IBUP600T42 PO
== END ==
LOC: M ADAMS 14:51
PROVIDERS: ATTEND Physician Assistant
DX: S20.211S Contusion of right front wall of thorax, sequela (principal); X58.XXXS Exposure to other specified factors, sequela; Y92.9 Unspecified place or not applicable; Y93.9 Activity, unspecified; Y99.9 Unspecified external cause status

== ENCOUNTER → 2025-01-08 | Outpatient (CLI) | payer MEDICARE, OTHER | LOC: M ADAMS 15:38 | PROVIDERS: ATTEND Physician Assistant Medical | DX: M25.562 Pain in left knee (principal) ==

== ENCOUNTER → 2025-02-24 | Outpatient (REF) | payer MEDICARE, OTHER ==
[2025-02-24 15:37] LABS: APPEARANCE, URINE CLEAR (CLEAR); BACTERIA, URINE AUTO NEGATIVE (NEGATIVE); BILIRUBIN, URINE AUTO NEGATIVE (NEGATIVE); BLOOD, URINE BLOOD NEGATIVE (NEGATIVE); GLUCOSE, URINE (UA) AUTO NEGATIVE (NEGATIVE); KETONE, URINE AUTO NEGATIVE (NEGATIVE); LEUKOCYTE ESTERASE, URINE AUTO NEGATIVE (NEGATIVE); NITRITE, URINE AUTO NEGATIVE (NEGATIVE); PROTEIN, URINE AUTO NEGATIVE (NEGATIVE); RBC, URINE AUTO 0 /HPF (0-3); SPECIFIC GRAVITY URINE AUTO 1.012 (1.002-1.035); SQUAMOUS EPITHELIAL CELL UR AU 0 /HPF (0-6); UROBILINOGEN, URINE AUTO 0.2 mg/dL (0.0-2.0); WBC, URINE AUTO 1 /HPF (0-3)
== END ==
LOC: M SMT 15:10
PROVIDERS: ATTEND Physician Assistant
DX: Z87.898 Personal history of other specified conditions (principal)